=== PATIENT | female | born 1935 | race Hispanic/Latino ===

== ENCOUNTER 2018-01-19 17:25 | Inpatient (IN) | payer MEDICARE, OTHER ==
[2018-01-19] MEDS ORDERED: Albuterol-Ipratrop 3 mg / 0.5 (3 ml) UD IH STA (18:05)
--- NOTE | 2018-01-19 18:17 | ED PDOC ---
Arrival/HPI - General Chief Complaint: Shortness Of Breath Time Seen by Provider: 01/19/18 17:39 Historian: Patient, Family, Safekeeping Clerk - History of Present Illness Narrative History of Present Illness (Text): 01/19/18 18:35 Patient is an 82 yo female presents to the Emergency Department with shortness of breath. Daughter at bedside and translates. Patient reportedly "got sick in [place]" 6 days ago. Reportedly she had developed fever and cough at that time, daughter states that she was evaluated in Emergency Department in [place] and was discharged at that time with cough medicine as per daughter. Daughter states that over past 6 days she has had increased cough, wheezing and shortness of breath "gradually worse". She denies chest pain but reports "aches everywhere when she coughs". She reportedly has history of asthma and uses inhaler intermittently. She denies pleuritic chest pain. She denies leg pain or swelling. States she flew back from [place] 2 days ago. Denies headache. Denies any bloody urine or stool. Time/Duration: 1 week Symptom Onset: Gradual Past Medical History - Infectious Disease Hx of Infectious Diseases: None - Cardiac Hx Hypertension: Yes - Pulmonary Hx Asthma: Yes Hx Chronic Obstructive Pulmonary Disease (COPD): Yes - HEENT Hx Glaucoma: Yes - Psychiatric Hx Substance Use: No - Anesthesia Hx Anesthesia: No Hx Anesthesia Reactions: No Hx Malignant Hyperthermia: No - Suicidal Assessment Feels Threatened In Home Enviroment: No Family/Social History Family/Social History: Unknown Family HX Smoking Status: Never Smoked Hx Alcohol Use: No Hx Substance Use: No Allergies/Home Meds Allergies/Adverse Reactions: Allergies No Known Allergies Allergy (Verified 06/01/15 11:01) Home Medications: Home Meds Medication Instructions Recorded Confirmed Fluticasone/Salmeterol 250/50 1 puff PO DAILY 01/19/18 01/19/18 [Advair Diskus 250/50] Montelukast Sodium [Singulair] 10 mg PO DAILY 01/19/18 01/19/18 Timolol [Betimol] 1 drop DAILY 01/19/18 01/19/18 Review of Systems - Review of Systems Constitutional: Fatigue, Weight Change, Fevers. absent: Night Sweats Eyes: absent: Vision Changes, Photophobia, Eye Pain ENT: absent: Hearing Changes, Sore Throat, Rhinorrhea Respiratory: SOB, Cough, Wheezing Cardiovascular: KNAPP. absent: Chest Pain, Palpitations, Edema, Calf Pain, Orthopnea, Syncope Gastrointestinal: absent: Abdominal Pain, Nausea, Vomiting, Appetite Changes Genitourinary Female: absent: Dysuria, Frequency Musculoskeletal: absent: Back Pain Skin: absent: Rash Neurological: absent: Headache, Dizziness, Focal Weakness Endocrine: absent: Polyuria Hemo/Lymphatic: absent: Easy Bleeding Psychiatric: absent: Anxiety, Depression Physical Exam Vital Signs Reviewed: Yes Vital Signs Temp Pulse Resp BP Pulse Ox 01/19/18 19:45 142/86 01/19/18 18:53 99.6 F 01/19/18 17:57 97.8 F 100 H 18 142/86 96 Temperature: Afebrile Pulse: Irregular Respiratory Rate: Tachypneic Appearance: Positive for: Ill-Appearing Pain Distress: Mild Mental Status: Positive for: Alert and Oriented X 3 - Systems Exam Head: Present: Atraumatic Pupils: Present: PERRL Extroacular Muscles: Present: EOMI Mouth: Present: Moist Mucous Membranes Pharnyx: No: ERYTHEMA Nose (Internal): Present: Normal Inspection, No Active Bleeding Neck: Present: Normal Range of Motion. No: Meningeal Signs, MIDLINE TENDERNESS Respiratory/Chest: Present: Wheezes, Rales, Rhonchi, Tachypneic. No: Accessory Muscle Use Cardiovascular: Present: Murmurs, Irregular Rhythm, Tachycardic Abdomen: No: Tenderness, Distention Back: No: CVA Tenderness, Midline Tenderness Upper Extremity: Present: Normal ROM, NORMAL PULSES, Neurovascularly Intact. No : Cyanosis, Edema Lower Extremity: Present: NORMAL PULSES, Neurovascularly Intact. No: CALF TENDERNESS Neurological: Present: Motor Func Grossly Intact, Normal Sensory Function Skin: Present: Warm Psychiatric: Present: Alert, Normal Insight, Normal Concentration Medical Decision Making ED Course and Treatment: 01/19/18 18:41 Patient noted to have wheezing with rhonchi and rales on exam. Cough and sob progressive for 6 days. No calf pain or swelling. Patient on nasal cannula saturations 96%. On monitor, patient noted to have intermittent irregular tachycardic rhythm consistent with possible atrial fibrillation, although EKG reveals sinus tachycardia with nonspecifc st abnormality. Patient denies diabetes or known past cardiac history. No calf pain or swelling. No pleuritic pain. CXR suggestive of right lower lobe infiltrate. Blood cultures and iv antibiotics initiated. Also suspect arrhythmia given monitor rhythm, patient pending labs and BNP at this time. 01/19/18 20:03 On re-evaluation, no further irregular rhythms noted on monitor. Repeat EKG reveals sinus tachycardia with PACs. She is breathing more comfortably. Continues to deny chest discomfort. Abnormal CXR, bnp and suggestion of pneumonia, possible chf reviewed with patient and daughter. Given recent travel, will obtain ct angio. Case d/w house doctor Dr. Page, accepts admission to hospitalist service , CT angio results endorsed to Dr. Menchaca and admitting team for follow-up. If any arrhythmias return I have recommended repeat evaluation with EKG, reassessment and review of possible anticoagulation. - Lab Interpretations Lab Results: 01/19/18 18:30 01/19/18 18:30 Lab Results 01/19/18 18:30: Influenza Typ A,B (EIA) Negative for flu a/b 01/19/18 18:30: Sodium 138, Chloride 100, Potassium 4.3, Carbon Dioxide 24, Anion Gap 19, BUN 13, Creatinine 0.7, Est GFR ( Amer) > 60, Est GFR (Non- Af Amer) > 60, Random Glucose 117 H, Calcium 9.6, Magnesium 2.5 H, Total Bilirubin 2.8 H, AST 36, ALT 25, Alkaline Phosphatase 128 H, Lactate Dehydrogenase 479, Total Creatine Kinase 84, Troponin I 0.02, NT-Pro-B Natriuret Pep 1520 H, Total Protein 7.7, Albumin 3.8, Globulin 3.9, Albumin/ Globulin Ratio 1.0 L 01/19/18 18:30: pO2 126 H, VBG pH 7.38, VBG pCO2 41.0, VBG HCO3 24.3, VBG Total CO2 25.6, VBG O2 Sat (Calc) 98.9 H, VBG Base Excess -0.8 L, VBG Potassium 4.5, Sodium 134.0, Chloride 103.0, Glucose 118 H, Lactate 1.2, FiO2 21.0, Venous Blood Potassium 4.5 01/19/18 18:30: PT 14.5 H, INR 1.27 H, APTT 32.2 01/19/18 18:30: WBC 14.2 H D, RBC 4.14, Hgb 12.7, Hct 37.8, MCV 91.3, MCH 30.7, MCHC 33.6, RDW 14.1, Plt Count 345, MPV 9.1, Gran % 83.8 H, Lymph % (Auto) 4.1 L , Mcclain % (Auto) 11.9 H, Eos % (Auto) 0.0 L, Baso % (Auto) 0.2, Gran # 11.94 H, Lymph # (Auto) 0.6 L, Mcclain # (Auto) 1.7 H, Eos # (Auto) 0.0, Baso # (Auto) 0.03 , Neutrophils % (Manual) 80 H, Lymphocytes % (Manual) 10 L, Monocytes % (Manual ) 10 H 01/19/18 18:24: pCO2 34 L, pO2 89.0, HCO3 21.6, ABG pH 7.41, ABG Total CO2 22.6 , ABG O2 Saturation 97.9, ABG Base Excess -2.4 L, ABG Potassium 3.9, Sodium 135.0, Chloride 104.0, Glucose 105, Lactate 0.9, FiO2 30.0, Arterial Blood Potassium 3.9 - RAD Interpretation Radiology Orders: 01/19/18 18:04 CHEST PORTABLE [RAD] Stat 01/19/18 19:24 ANGIO CHEST PE PROTOCOL [CT] Stat - Medication Orders Current Medication Orders: Albuterol/Ipratropium (Duoneb 3 Mg/0.5 Mg (3 Ml) Ud) 3 ml IH Q2H PRN PRN Reason: Shortness of Breath Albuterol/Ipratropium (Duoneb 3 Mg/0.5 Mg (3 Ml) Ud) 3 ml IH [id number] PRASANNA Last Admin: 01/20/18 07:56 Dose: 3 ml Enoxaparin Sodium (Lovenox) 40 mg SC DAILY PRASANNA PRN Reason: Protocol Furosemide (Lasix) 20 mg IVP Q12 PRASANNA Ceftriaxone Sodium (Rocephin 1 Gram Ivpb) 1 gm in 100 mls @ 100 mls/hr IVPB DAILY PRASANNA PRN Reason: Protocol Azithromycin (Zithromax 500mg In Ns) 500 mg in 250 mls @ 167 mls/hr IVPB DAILY PRASANNA PRN Reason: Protocol Methylprednisolone (Solu-Medrol) 40 mg IVP Q12 PRASANNA Montelukast Sodium (Singulair) 10 mg PO DAILY PRASANNA Pantoprazole Sodium (Protonix Ec Tab) 40 mg PO 0600 PRASANNA Last Admin: 01/20/18 05:53 Dose: 40 mg Timolol Maleate (Timoptic 0.5% Ophth Soln) 1 drop OU DAILY PRASANNA Discontinued Medications Albuterol/Ipratropium (Duoneb 3 Mg/0.5 Mg (3 Ml) Ud) 3 ml IH STAT STA Stop: 01/19/18 18:06 Last Admin: 01/19/18 18:35 Dose: 3 ml Furosemide (Lasix) 20 mg IVP STAT STA Stop: 01/19/18 19:19 Last Admin: 01/19/18 19:45 Dose: 20 mg MAR Blood Pressure Document 01/19/18 19:45 MS (Rec: 01/19/18 19:46 MS [id number]) Blood Pressure Blood Pressure (100/60-150/90) 142/86 IVP Administration Document 01/19/18 19:45 MS (Rec: 01/19/18 19:46 MS [id number]) Charges for Administration # of IVP Administrations 1 Ceftriaxone Sodium (Rocephin 1 Gram Ivpb) 1 gm in 100 mls @ 200 mls/hr IVPB ONCE STA PRN Reason: Protocol Stop: 01/19/18 19:02 Last Admin: 01/19/18 19:10 Dose: 200 mls/hr eMAR Start Stop Document 01/19/18 19:10 MS (Rec: 01/19/18 19:45 MS [id number]) Intravenous Solution Start Date 01/19/18 Start Time 19:10 End Date 01/19/18 End time 19:40 Total Infusion Time 30 Azithromycin (Zithromax 500mg In Ns) 500 mg in 250 mls @ 167 mls/hr IVPB STAT STA PRN Reason: Protocol Stop: 01/19/18 20:02 Last Admin: 01/19/18 19:46 Dose: 167 mls/hr eMAR Start Stop Document 01/19/18 19:46 MS (Rec: 01/19/18 19:47 MS [id number]) Intravenous Solution Start Date 01/19/18 Start Time 19:46 End Date 01/19/18 End time 21:16 Total Infusion Time 90 Timolol Maleate (Timoptic 0.5% Ophth Soln) 0 drop OU DAILY PRASANNA Disposition/Present on Arrival - Present on Arrival Any Indicators Present on Arrival: No History of DVT/PE: No History of Uncontrolled Diabetes: No Urinary Catheter: No History of Decub. Ulcer: No History Surgical Site Infection Following: None - Disposition Have Diagnosis and Disposition been Completed?: Yes Diagnosis: Pneumonia, CHF (congestive heart failure), Tachycardia, Asthma Disposition: HOSPITALIZED Disposition Time: 19:15 Patient Plan: Admission, Telemetry Patient Problems: Current Active Problems Problem Status Onset Asthma Acute CHF (congestive heart failure) Acute Pneumonia Acute Tachycardia Acute Condition: SERIOUS
[2018-01-19 18:27] LABS: ARTERIAL BLOOD GAS HCO3 21.6 mmol/L (21-28); ARTERIAL BLOOD GAS O2 SAT 97.9 % (95-98); ARTERIAL BLOOD GAS PCO2 34 mm/Hg (35-45); ARTERIAL BLOOD GAS PH 7.41 (7.35-7.45); ARTERIAL BLOOD GAS TCO2 22.6 mmol.L (22-28)
[2018-01-19] MEDS ORDERED: Azithromycin 500MG/NS 250ml 500 MG/250 ML BAG IVPB STA (18:33)
[2018-01-19] MEDS ORDERED: cefTRIAXone 1 gm 1 GM/100 ML BAG IVPB STA (18:33)
--- NOTE | 2018-01-19 18:35 | RAD ---
HISTORY: Shortness of breath COMPARISON: 06/01/2015. FINDINGS: LUNGS: The lungs are hyperinflated and there is peribronchial thickening with chronic changes in both lungs. There is airspace disease in the right lower lobe. PLEURA: No significant pleural effusion identified, no pneumothorax apparent. CARDIOVASCULAR: Normal. OSSEOUS STRUCTURES: No significant abnormalities. VISUALIZED UPPER ABDOMEN: Normal. OTHER FINDINGS: None. IMPRESSION: Suspect right lower lobe pneumonia. Follow-up to resolution is advised. COPD.
[2018-01-19 18:46] LABS: VENOUS BLOOD GAS BASE EXCESS -0.8 mmol/L (0.0-2.0); VENOUS BLOOD GAS PO2 126 mm/Hg (30-55); VENOUS BLOOD PH 7.38 (7.32-7.43)
[2018-01-19 18:51] LABS: BASO # 0.03 K/mm3 (0.0-2.0); BASO % 0.2 % (0.0-3.0); GRAN # 11.94 (1.4-6.5); GRAN % 83.8 % (50.0-68.0); HEMOGLOBIN 12.7 g/dL (12.0-16.0); LYMPH # 0.6 (1.2-3.4); LYMPH % 4.1 % (22.0-35.0); MEAN CELL VOLUME 91.3 fl (80.0-105.0); MEAN CORPUSCULAR HEMOGLOBIN 30.7 pg (25.0-35.0); MEAN CORPUSCULAR HGB CONC 33.6 g/dl (31.0-37.0); MEAN PLATELET VOLUME 9.1 fl (7.0-11.0); MONO # 1.7 (0.1-0.6); MONO % 11.9 % (1.0-6.0); PLATELET COUNT 345 10^3/uL (120.0-450.0); RBC 4.14 10^6/uL (3.5-6.1); RED CELL DISTRIBUTION WIDTH 14.1 % (11.5-14.5); WHITE BLOOD COUNT 14.2 10^3/ul (4.5-11.0)
[2018-01-19 18:54] LABS: ALBUMIN 3.8 g/dL (3.0-4.8); ALT/SGPT 25 U/L (7-56); AST/SGOT 36 U/L (14-36); BLOOD UREA NITROGEN 13 mg/dL (7-21); CALCIUM 9.6 mg/dL (8.4-10.5); GFR AFRICAN-AMERICAN > 60; GFR NON-AFRICAN AMERICAN > 60
[2018-01-19 18:57] LABS: INR 1.27 (0.93-1.08); PARTIAL THROMBOPLASTIN TIME 32.2 Seconds (25.1-36.5); PROTHROMBIN TIME 14.5 SECONDS (9.4-12.5)
[2018-01-19 19:02] LABS: B-TYPE NATRIURETIC PEPTIDE 1520 pg/mL (0-450)
[2018-01-19 19:06] LABS: TROPONIN I 0.02 ng/mL
[2018-01-19 19:30] LABS: LYMPHOCYTE 10 % (22.0-35.0); MONOCYTE 10 % (1.0-6.0); NEUTROPHIL 80 % (50.0-70.0)
[2018-01-19] MEDS ORDERED: Iohexol 350 MG/100 ML VIAL ONE (20:04)
[2018-01-19] MEDS ORDERED: Albuterol-Ipratrop 3 mg / 0.5 (3 ml) UD IH PRN (21:24)
--- NOTE | 2018-01-19 21:50 | CT ---
EXAM: CT Angiography Chest With Intravenous Contrast EXAM DATE/TIME: 01/19/2018 7:24 PM CLINICAL HISTORY: 82 years old, female; Signs and symptoms; Shortness of breath; Additional info: R/O pe TECHNIQUE: Axial computed tomographic angiography images of the chest with intravenous contrast using pulmonary embolism protocol. All CT scans at this facility use one or more dose reduction techniques, viz.: automated exposure control; ma/kV adjustment per patient size (including targeted exams where dose is matched to indication; i.e. head); or iterative reconstruction technique. MIP reconstructed images were created and reviewed. Coronal and sagittal reformatted images were created and reviewed. CONTRAST: 95 mL of OMNI 350 administered intravenously. COMPARISON: DX - CHEST PORTABLE 2018-01-19 18:11 FINDINGS: Multiple small mediastinal lymph nodes are noted. No pulmonary embolism. No aortic dissection or aneurysm. There is a small amount of fluid in the right pleural space. There are scattered nodular infiltrates throughout the lungs bilaterally. There are scattered areas of consolidation throughout the lungs bilaterally.. The consolidation is most prominent in the anterior mid lung some of which may be chronic. Small scattered groundglass opacities are present. There is a focal area of soft tissue density in the right breast with somewhat rounded borders measuring 1.5 cm in diameter. This may just represent asymmetric normal breast tissue however would recommend correlation with mammogram. IMPRESSION: Patchy scattered areas of groundglass opacity, consolidation, and nodular infiltrates bilaterally. I would favor infectious/inflammatory etiology for the patchy micronodular infiltrate, however neoplasm would still be within the differential diagnosis and followup is recommended to ensure complete resolution. Consolidation is most prominent in the mid lung some of which may represent chronic atelectatic changes however underlying lesion would be possible and followup is recommended. Correlation with prior studies would also be helpful if they exist. Small right pleural effusion. Please see discussion above regarding right breast tissue.
[2018-01-19 21:53] LABS: URINE BILIRUBIN NEGATIVE (NEGATIVE); URINE BLOOD SMALL (NEGATIVE); URINE GLUCOSE (UA) NEGATIVE (NEGATIVE); URINE LEUKOCYTE ESTERASE TRACE Leu/uL (NEGATIVE); URINE PROTEIN TRACE mg/dL (<30 mg/dL); URINE UROBILINOGEN 0.2 E.U./dL (<1 E.U./dL)
[2018-01-19 22:00] LABS: URINE APPEARANCE CLEAR (CLEAR); URINE COLOR YELLOW (YELLOW)
[2018-01-19 22:05] LABS: URINE BACTERIA FEW (NEG); URINE EPITHELIAL CELLS 0 - 2 /hpf (0-5); URINE RBC 0 - 2 /hpf (0-2)
--- NOTE | 2018-01-19 23:05 | CP.PCM.HP ---
<Atul Noel - Last Filed: 01/20/18 00:16> History of Present Illness - History of Present Illness History of Present Illness: CC: Cold-like symptoms Pt is an 82 yo F with PMH of asthma, glaucoma, and HTN [place] [facility] [place] to [place]ness of breath. Pt's daughter is at bedside and provides translation as patient speaks [place]. Pt complained of fever up to 101.3 F and cough that started 6 days ago while she was in [place]. Pt was evaluated by emergency department in [place], who discharged her with PO antibiotics and cough medication. However, over the past 6 days patient's symptoms worsened, including productive cough, wheezing, body aches, and shortness of breath. Patient returned from [place] 2 days ago. Pt denies CP, n/v/d, abdominal pain , chills, SAINZ, dizziness, dysuria, changes in stool, leg pain, or swelling. PMH: Asthma, glaucoma, HTN Surg: Cataracts, ORIF for right ankle fx All: NKDA FHx: Stomach CA SH: Denied tobacco, EtOH, and illicit drug use PMD: [place] Present on Admission - Present on Admission Any Indicators Present on Admission: No Review of Systems - Review of Systems Review of Systems: 12 point ROS reviewed and is negative other than what is stated in HPI. Past Patient History - Infectious Disease Hx of Infectious Diseases: None - Past Social History Smoking Status: Never Smoked - CARDIAC Hx Hypertension: Yes - PULMONARY Hx Asthma: Yes Hx Chronic Obstructive Pulmonary Disease (COPD): Yes - HEENT Hx Glaucoma: Yes - PSYCHIATRIC Hx Substance Use: No - ANESTHESIA Hx Anesthesia: No Hx Anesthesia Reactions: No Hx Malignant Hyperthermia: No Meds Allergies/Adverse Reactions: Allergies Allergy/AdvReac Type Severity Reaction Status Date / Time No Known Allergies Allergy Verified 06/01/15 11:01 Physical Exam - Constitutional Appears: No Acute Distress - Head Exam Head Exam: NORMAL INSPECTION - Eye Exam Eye Exam: Normal appearance - ENT Exam ENT Exam: Mucous Membranes Moist - Neck Exam Neck exam: Positive for: Normal Inspection - Respiratory Exam Respiratory Exam: Rhonchi (b/l R>L), Wheezes (b/l bases). absent: Rales, Respiratory Distress - Cardiovascular Exam Cardiovascular Exam: Irregular Rhythm, +S1, +S2. absent: Diastolic murmur, Gallop, Rubs, Systolic Murmur - GI/Abdominal Exam GI & Abdominal Exam: Soft. absent: Distended, Guarding, Rebound, Tenderness - Extremities Exam Extremities exam: Positive for: normal inspection - Back Exam Back exam: NORMAL INSPECTION - Neurological Exam Neurological exam: Alert, CN II-XII Intact, Oriented x3 - Psychiatric Exam Psychiatric exam: Normal Affect, Normal Mood - Skin Skin Exam: Dry, Intact, Normal Color, Warm Results - Vital Signs Recent Vital Signs: Last Vital Signs Temp 99.6 F 01/19/18 18:53 Pulse 100 H 01/19/18 17:57 Resp 18 01/19/18 17:57 BP 142/86 01/19/18 19:45 Pulse Ox 96 01/19/18 17:57 - Labs Result Diagrams: 01/19/18 18:30 01/19/18 18:30 Labs: Laboratory Results - last 24 hr 01/19/18 21:27 Urine Color Yellow Urine Appearance Clear Urine pH 6.0 Ur Specific Bonnyman 1.010 Urine Protein Trace H Urine Glucose (UA) Negative Urine Ketones 15 H Urine Blood Small H Urine Nitrate Negative Urine Bilirubin Negative Urine Urobilinogen 0.2 Ur Leukocyte Esterase Trace H Urine RBC 0 - 2 Urine WBC 5 - 10 Ur Epithelial Cells 0 - 2 Urine Bacteria Few Assessment & Plan - Assessment and Plan (Free Text) Assessment: 82 yo F with PMH of asthma, glaucoma and HTN admitted for evaluation and treatment for community acquired pneumonia. Plan: 1. Community acquired pneumonia - Afebrile on admission - WBC 14.2, lactate WNL - CXR showed right lower lobe pneumonia - CT chest showed patchy scattered areas of groundglass opacity, consolidation, and nodular infiltrates bilaterally, consolidation is most prominent in the mid lung (right), no PE - Influenza negative - Ceftriaxone - Azithromycin - Blood culture ordered - ID consulted 2. CHF - BNP 1520 - Troponin negative x1, trend x2 - Echo ordered - Lasix 20 mg q12h - Strict I's and O's - Daily weights - Head of bed to 30 degrees - Cardiology consulted 3. Possible paroxysmal atrial fibrillation - CV exam and pulse irregularly irregular - EKG revealed sinus tachycardia with nonspecifc ST abnormality - AM EKG ordered 4. UTI - UA showed trace leukocyte esterase - Urine culture ordered - Ceftriaxone 5. Asthma - Duoneb nabeel and prn - Singulair - Solumedrol 40 mg q12h 6. H/o Glaucoma - Cont home medication GI/DVT PPx - Lovenox - Protonix Pt seen and discussed in detail with Dr. Page. Ronnie Noel, PGY1 <Erin Page - Last Filed: 01/20/18 01:59> Results - Vital Signs Recent Vital Signs: Last Vital Signs Temp 99.6 F 01/19/18 18:53 Pulse 102 H 01/19/18 23:43 Resp 16 01/19/18 23:43 BP 122/87 01/19/18 23:43 Pulse Ox 95 01/19/18 23:43 - Labs Result Diagrams: 01/19/18 18:30 01/19/18 18:30 Labs: Laboratory Results - last 24 hr 01/19/18 21:27 Urine Color Yellow Urine Appearance Clear Urine pH 6.0 Ur Specific Bonnyman 1.010 Urine Protein Trace H Urine Glucose (UA) Negative Urine Ketones 15 H Urine Blood Small H Urine Nitrate Negative Urine Bilirubin Negative Urine Urobilinogen 0.2 Ur Leukocyte Esterase Trace H Urine RBC 0 - 2 Urine WBC 5 - 10 Ur Epithelial Cells 0 - 2 Urine Bacteria Few Attending/Attestation - Attestation I have personally seen and examined this patient.: Yes I have fully participated in the care of the patient.: Yes I have reviewed all pertinent clinical information: Yes Notes (Text): 01/20/18 01:55 Patient was seen when she was in the CODE ROOM in the ER. Agree with history , physical examination, assessment and plan. Family physician:Fransisco Mckenzie. History obtained from daughter.
[2018-01-20] MEDS ORDERED: Metoprolol 1 mg/ml Inj IVP ONE (01:01)
[2018-01-20] MEDS: Albuterol-Ipratrop 3 mg / 0.5 (3 ml) UD IH SCH ×4 (01:11→19:43)
[2018-01-20] MEDS: Pantoprazole 40 mg EC Tab PO SCH (05:53)
[2018-01-20 07:02] LABS: HEMOGLOBIN 12.1 g/dL (12.0-16.0); MEAN CELL VOLUME 90.7 fl (80.0-105.0); MEAN CORPUSCULAR HEMOGLOBIN 30.4 pg (25.0-35.0); MEAN CORPUSCULAR HGB CONC 33.5 g/dl (31.0-37.0); MEAN PLATELET VOLUME 9.1 fl (7.0-11.0); RBC 3.98 10^6/uL (3.5-6.1); RED CELL DISTRIBUTION WIDTH 14.1 % (11.5-14.5); WHITE BLOOD COUNT 12.1 10^3/ul (4.5-11.0)
[2018-01-20 07:38] LABS: ALBUMIN 3.6 g/dL (3.0-4.8); ALT/SGPT 33 U/L (7-56); AST/SGOT 39 U/L (14-36); BLOOD UREA NITROGEN 14 mg/dL (7-21); GFR AFRICAN-AMERICAN > 60; GFR NON-AFRICAN AMERICAN > 60
[2018-01-20] MEDS ORDERED: Cefepime IV 2 gm in NS 2 GM/100 ML BAG IVPB SCH (08:45)
[2018-01-20] MEDS ORDERED: Enoxaparin 40 mg Syringe SC SCH (10:00)
[2018-01-20] MEDS ORDERED: cefTRIAXone 1 gm 1 GM/100 ML BAG IVPB SCH (10:00)
[2018-01-20] MEDS: Vancomycin 500mg in NS 500 MG/100 ML BAG IVPB SCH ×2 (10:10→21:18)
[2018-01-20] MEDS: Azithromycin 500MG/NS 250ml 500 MG/250 ML BAG IVPB SCH (12:51)
--- NOTE | 2018-01-20 15:39 | CON ---
DATE: 01/20/2018 REASON FOR CONSULTATION: Shortness of breath, pneumonia, and APCs. HISTORY OF PRESENT ILLNESS: This is an 82-year-old woman admitted yesterday through the emergency room when she complained of shortness of breath, this has been present for a week or more. She became ill in [place] with fever and shortness of breath. She was seen in an emergency room there and started on antibiotics. She returned to home a couple of days ago, symptoms have continued and got worse. So, she came to the emergency room. She was admitted to telemetry with apparent bibasilar pneumonia. In the emergency room, irregular rhythm was noted including APCs. This morning, she is resting comfortably in bed. She feels better at rest. There is no chest pain, orthopnea, PND, syncope, presyncope, lightheadedness, dizziness, or vertigo. There is no hemoptysis, abdominal pain, nausea, vomiting, diarrhea, constipation, or melena. There were no leg symptoms. PAST MEDICAL HISTORY: Notable for hypertension, asthma, glaucoma, and a right ankle ORIF. There is no history of cardiac problems including rheumatic fever, myocardial infarction, angina, arrhythmia, and there is no history of stroke, TIA, diabetes, or gout. MEDICATIONS: At the time of admission included Advair, Singulair, timolol, and lisinopril. ALLERGIES: THERE ARE NO MEDICATION ALLERGIES REPORTED. SOCIAL HISTORY: She is a nonsmoker. She does not drink alcohol. She is ambulatory. FAMILY HISTORY: Not notable for heart problems. REVIEW OF SYSTEMS: Ten-point review of systems is otherwise unremarkable except as noted above. The patient is [place] speaking, so this is somewhat limited. PHYSICAL EXAMINATION: GENERAL: A well-developed elderly woman lying in bed on telemetry, in no acute distress. VITAL SIGNS: Notable for sinus rhythm at 89-100 beats per minute. She is afebrile. Blood pressure 141/90, respirations 19-20, O2 sat 92%-97% on nasal cannula. HEENT: Reveals no neck vein distention, thyromegaly, or carotid bruits. Mucous membranes are moist. Conjunctivae are pink. NECK: Supple. LUNGS: [place], scattered rhonchi. HEART: Reveal a normal first and second heart sounds. No murmur, gallop, rub, or click. PMI not palpable. ABDOMEN: Soft. Bowel sounds present. No mass, organomegaly, tenderness, rebound, or guarding. No CVA tenderness. No palpable abdominal aortic aneurysm. EXTREMITIES: Reveal no cyanosis, clubbing, or edema. NEUROLOGIC: She is awake, alert, and oriented. PSYCHIATRIC: Normal as to mood and affect. SKIN: Warm and dry. No rash or cellulitis. LABORATORY AND IMAGING DATA: EKG demonstrates regular sinus rhythm, nonspecific ST-wave changes, no change from a previous EKG. Chest x-ray revealed suspect right lower lobe pneumonia. CT scan of the chest revealed no evidence of pulmonary embolus or aortic dissection, patchy scattered areas of ground glass opacity, consolidation or nodular infiltrates bilaterally, etc. White count 14,200, repeat 12,100; hemoglobin 12; hematocrit 36; platelet count normal. PT 14.5, INR 1.27, PTT 32.2. Blood gases are noted. Comprehensive metabolic panel unremarkable. Magnesium 2.5. LFTs mildly abnormal. Two troponins are negative. CK is 84. BNP is 1520. Urinalysis is noted. Influenza is negative. IMPRESSION AND PLAN: Sylvia Corrigan is an 82-year-old woman with bilateral infiltrates on the CT and a recent history of fever, cough, and congestion. She is admitted to telemetry. She is improved. She is getting pulmonary treatments. She got IV Lasix, Lovenox, Rocephin, Protonix, Solu-Medrol, vancomycin, azithromycin, lisinopril. We will monitor inputs and outputs. We will check an echocardiogram. No arrhythmias has been detected on telemetry as yet. We will check stool for occult blood. An infectious disease consult was requested. She has been cultured. I will follow along with you. I will check her echocardiogram once it has been done. I will make additional recommendations based on her clinical course. Adonay Casillas MD [facility]
--- NOTE | 2018-01-20 16:10 | US ---
HISTORY: Bilirubinemia and RUQ pain COMPARISON: None. TECHNIQUE: Sonographic evaluation of the right upper quadrant of the abdomen. FINDINGS: LIVER: Measures 13.5 cm in length. Patent portal vein. Portal venous flow: Hepatopetal. Unremarkable echogenicity of the liver parenchyma. No mass. No intrahepatic bile duct dilatation. GALLBLADDER: Cholelithiasis. Sludge identified. Positive sonographic Yin's sign. COMMON BILE DUCT: Measures 2.4 mm. No stones. No dilatation. PANCREAS: Unremarkable as visualized. No mass. No ductal dilatation. RIGHT KIDNEY: Measures 4.8 x 9.3 cm in length. Normal echogenicity. No calculus, mass, or hydronephrosis. Incidental finding(s): Simple cyst lower pole 2.9 x 3 cm AORTA: No aneurysmal dilatation. IVC: Unremarkable. OTHER FINDINGS: None . IMPRESSION: Cholelithiasis/ positive sonographic Yin's sign presumptive evidence for acute cholecystitis
--- NOTE | 2018-01-20 20:23 | CARD ---
APPROVED REPORT EKG Measurement Heart [id number] <Conclusion> Sinus rhythm with premature supraventricular complexes Otherwise normal ECG
--- NOTE | 2018-01-20 20:32 | CARD ---
APPROVED REPORT EKG Measurement Heart [id number] <Conclusion> Sinus tachycardia Nonspecific ST abnormality Abnormal ECG
[2018-01-20] MEDS: MethylPREDNISolone 40 mg Vial IVP SCH (21:18)
[2018-01-20] MEDS: Cefepime IV 2 gm in NS 2 GM/100 ML BAG IVPB SCH (21:18)
--- NOTE | 2018-01-20 21:44 | CP.PCM.CON ---
History of Present Illness - History of Present Illness History of Present Illness: 82 year old female with PMH of asthma, HTN, glaucoma, S/P right ankle fracture S /P ORIF, cataracts was brought in to [facility] because of cough and fevers for the past week. She came from [place] ([place] [facility]) last month and was seen in an ED there last week and was given PO antibiotics for presumed pneumonia. She had some relief but still had cough and fever. She denies having hemoptysis, no night sweats, no weight loss. She came back to [place] 2 days ago. [place] the [place], no headache or dizziness, no chest pain, no sore throat, no abdominal pain, no rhinorrhea, no diarrhea, no dysuria. CT chest is showing patchy scattered opacities in both lungs. She came from [place] 15 years and has been living mostly in [facility] since then. She apparently had a PPD skin test done 15 years ago which was negative. Infectious Diseases consult is requested to further evaluate and manage. Review of Systems - Review of Systems All systems: reviewed and no additional remarkable complaints except (as per HPI ) Past Patient History - Infectious Disease Hx of Infectious Diseases: None - Past Social History Smoking Status: Never Smoked - CARDIAC Hx Hypertension: Yes - PULMONARY Hx Respiratory Disorders: Yes Hx Asthma: Yes Hx Chronic Obstructive Pulmonary Disease (COPD): Yes - HEENT Hx Glaucoma: Yes - MUSCULOSKELETAL/RHEUMATOLOGICAL Hx Falls: Yes (2010) - PSYCHIATRIC Hx Substance Use: No - SURGICAL HISTORY Hx Surgeries: Yes (right leg surgery) - ANESTHESIA Hx Anesthesia: No Hx Anesthesia Reactions: No Hx Malignant Hyperthermia: No Meds Allergies/Adverse Reactions: Allergies Allergy/AdvReac Type Severity Reaction Status Date / Time No Known Allergies Allergy Verified 06/01/15 11:01 - Medications Medications: Current Medications Albuterol/Ipratropium (Duoneb 3 Mg/0.5 Mg (3 Ml) Ud) 3 ml IH Q2H PRN PRN Reason: Shortness of Breath Albuterol/Ipratropium (Duoneb 3 Mg/0.5 Mg (3 Ml) Ud) 3 ml IH [id number] COUNT INCLUDES [facility] Last Admin: 01/20/18 01:11 Dose: 3 ml Enoxaparin Sodium (Lovenox) 40 mg SC DAILY [facility]CLUDES [facility] PRN Reason: Protocol Furosemide (Lasix) 20 mg IVP Q12 COUNT INCLUDES [facility] Ceftriaxone Sodium (Rocephin 1 Gram Ivpb) 1 gm in 100 mls @ 100 mls/hr IVPB DAILY COUNT [facility]CLUDES [facility] PRN Reason: Protocol Azithromycin (Zithromax 500mg In Ns) 500 mg in 250 mls @ 167 mls/hr IVPB DAILY [facility] PRN Reason: Protocol Methylprednisolone (Solu-Medrol) 40 mg IVP Q12 COUNT INCLUDES [facility] Montelukast Sodium (Singulair) 10 mg PO DAILY COUNT [facility]CLUDES [facility] Pantoprazole Sodium (Protonix Ec Tab) 40 mg PO 0600 COUNT [facility]CLUDES [facility] Last Admin: 01/20/18 05:53 Dose: 40 mg Timolol Maleate (Timoptic 0.5% Ophth Soln) 1 drop OU DAILY COUNT [facility]CLUDES [facility] Physical Exam - Constitutional Appears: Non-toxic, Chronically Ill - Head Exam Head Exam: NORMAL INSPECTION - Neck Exam Neck exam: Negative for: Lymphadenopathy, Meningismus - Respiratory Exam Respiratory Exam: Decreased Breath Sounds, Rales (scattered) - Cardiovascular Exam Cardiovascular Exam: +S1, +S2 - GI/Abdominal Exam GI & Abdominal Exam: Soft. absent: Tenderness Results - Vital Signs Recent Vital Signs: Last Vital Signs Temp 97.9 F 01/20/18 01:53 Pulse 89 01/20/18 02:00 Resp 19 01/20/18 01:53 BP 144/74 01/20/18 01:53 Pulse Ox 92 L 01/20/18 00:00 - Labs Result Diagrams: 01/20/18 06:00 01/20/18 06:00 Labs: Laboratory Results - last 24 hr 01/19/18 01/20/18 21:27 02:33 Troponin I 0.03 D Urine Color Yellow Urine Appearance Clear Urine pH 6.0 Ur Specific Ewen 1.010 Urine Protein Trace H Urine Glucose (UA) Negative Urine Ketones 15 H Urine Blood Small H Urine Nitrate Negative Urine Bilirubin Negative Urine Urobilinogen 0.2 Ur Leukocyte Esterase Trace H Urine RBC 0 - 2 Urine WBC 5 - 10 Ur Epithelial Cells 0 - 2 Urine Bacteria Few Assessment & Plan - Assessment and Plan (Free Text) Plan: Assessment Consider sepsis due to multifocal HCAP with possible gram positive cocci and/or gram negative bacilli and/or atypical organisms asthma HTN glaucoma S/P right ankle fracture S/P ORIF cataracts Plan Started patient on Vancomycin, cefepime and doxycycline pending blood, sputum cx , PCT; reviewed CT chest initially considered Coccidioides since she came from [place] but patient did not specifically [place] will monitor clinical response
[2018-01-21] MEDS: Albuterol-Ipratrop 3 mg / 0.5 (3 ml) UD IH SCH ×4 (01:21→22:02)
[2018-01-21] MEDS: Pantoprazole 40 mg EC Tab PO SCH (06:38)
[2018-01-21 07:36] LABS: HEMOGLOBIN 11.9 g/dL (12.0-16.0); MEAN CELL VOLUME 91.6 fl (80.0-105.0); MEAN CORPUSCULAR HEMOGLOBIN 30.4 pg (25.0-35.0); MEAN CORPUSCULAR HGB CONC 33.1 g/dl (31.0-37.0); RBC 3.92 10^6/uL (3.5-6.1); RED CELL DISTRIBUTION WIDTH 14.1 % (11.5-14.5); WHITE BLOOD COUNT 9.6 10^3/ul (4.5-11.0)
[2018-01-21 08:00] LABS: ALB/GLOB RATIO 0.9 (1.1-1.8); ALBUMIN 3.3 g/dL (3.0-4.8); ALT/SGPT 36 U/L (7-56); AST/SGOT 38 U/L (14-36); BLOOD UREA NITROGEN 16 mg/dL (7-21); CALCIUM 9.1 mg/dL (8.4-10.5); GFR AFRICAN-AMERICAN > 60; GFR NON-AFRICAN AMERICAN > 60
--- NOTE | 2018-01-21 08:27 | CP.PCM.PN ---
<Opal Ferreira - Last Filed: 01/21/18 09:35> Subjective - Date & Time of Evaluation Date of Evaluation: 01/21/18 Time of Evaluation: 08:27 - Subjective Subjective: PGY-2 progress note for hospitalist Patient seen and examined at bedside. No acute distress. Nurse reports no acute events overnight. Daughter at bedside for translation, Patient state that she had a nose bleed this morning which resolved. She state that he breathing has improved but continues to have cough. Patient states that she has had more then multiple episodes of pne over the past few years. She has never been intubated. Objective - Vital Signs/Intake and Output Vital Signs (last 24 hours): Temp Pulse Resp BP Pulse Ox 97.7 F 84 20 124/68 96 01/21/18 06:00 01/21/18 06:00 01/21/18 06:00 01/21/18 06:00 01/21/18 06:00 Intake and Output: 01/21/18 01/21/18 06:59 18:59 Intake Total 540 Balance 540 - Medications Medications: Current Medications Albuterol/Ipratropium (Duoneb 3 Mg/0.5 Mg (3 Ml) Ud) 3 ml IH Q2H PRN PRN Reason: Shortness of Breath Last Admin: 01/21/18 04:26 Dose: 3 ml Albuterol/Ipratropium (Duoneb 3 Mg/0.5 Mg (3 Ml) Ud) 3 ml IH [id number] NABEEL Last Admin: 01/21/18 08:04 Dose: 3 ml Enoxaparin Sodium (Lovenox) 30 mg SC DAILY [facility] PRN Reason: Protocol Azithromycin (Zithromax 500mg In Ns) 500 mg in 250 mls @ 167 mls/hr IVPB DAILY [facility] PRN Reason: Protocol Last Admin: 01/20/18 12:51 Dose: 167 mls/hr Vancomycin HCl (Vancomycin 500mg In Ns) 500 mg in 100 mls @ 200 mls/hr IVPB Q12 [facility] PRN Reason: Protocol Last Admin: 01/20/18 21:18 Dose: 200 mls/hr Cefepime HCl (Maxipime 2gm) 2 gm in 100 mls @ 100 mls/hr IVPB Q12 N[facility]EEL PRN Reason: Protocol Stop: 04/04/18 08:46 Last Admin: 01/20/18 21:18 Dose: 100 mls/hr Lisinopril (Zestril) 5 mg PO DAILY [facility] Last Admin: 01/20/18 10:08 Dose: 5 mg Methylprednisolone (Solu-Medrol) 40 mg IVP Q12 [facility] Last Admin: 01/20/18 21:18 Dose: 40 mg Montelukast Sodium (Singulair) 10 mg PO DAILY [facility] Last Admin: 01/20/18 10:08 Dose: 10 mg Pantoprazole Sodium (Protonix Ec Tab) 40 mg PO 0600 [facility] Last Admin: 01/21/18 06:38 Dose: 40 mg Timolol Maleate (Timoptic 0.5% Ophth Soln) 1 drop OU HS [facility] Last Admin: 01/20/18 21:19 Dose: 1 unit - Labs Labs: 01/21/18 07:00 01/21/18 07:00 PT 14.5 SECONDS (9.4-12.5) H 01/19/18 18:30 INR 1.27 (0.93-1.08) H 01/19/18 18:30 APTT 32.2 Seconds (25.1-36.5) 01/19/18 18:30 - Constitutional Appears: No Acute Distress - Head Exam Head Exam: ATRAUMATIC, NORMAL INSPECTION, NORMOCEPHALIC - Eye Exam Eye Exam: EOMI, Normal appearance - ENT Exam ENT Exam: Mucous Membranes Moist - Respiratory Exam Respiratory Exam: Rhonchi, Wheezes, NORMAL BREATHING PATTERN. absent: Respiratory Distress - Cardiovascular Exam Cardiovascular Exam: REGULAR RHYTHM, +S1, +S2. absent: Tachycardia, Murmur - GI/Abdominal Exam GI & Abdominal Exam: Soft, Normal Bowel Sounds. absent: Distended, Firm, Guarding - Extremities Exam Extremities Exam: Normal Inspection - Neurological Exam Neurological Exam: Alert, Awake, Oriented x3 - Skin Skin Exam: Dry, Normal Color, Warm Assessment and Plan - Assessment and Plan (Free Text) Assessment: 82 yo F with PMH of asthma, glaucoma and HTN admitted for evaluation and treatment for community acquired pneumonia, found to have cholecysitis, UTI and transaminitis. Plan: Community acquired pneumonia - Afebrile, leukocytosis downtrending - CXR showed right lower lobe pneumonia - CT chest showed patchy scattered areas of groundglass opacity, consolidation, and nodular infiltrates bilaterally, consolidation is most prominent in the mid lung (right), no PE - Influenza negative - continue antibiotics vancomycin, Azithromycin and cefepime - Blood culture negative after 24 hours - ID consulted, ordered legionella, histoplasma and fungitell studies - pulm consulted cholecysitis - patient has mild tenderness on palpation of RUQ - transaminitis, is improving - AB US showed cholelithiasis with evidence for acute cholecysitis - patient NPO - surgery conslted Asthma - Duoneb nabeel and prn - Singulair - continue Solumedrol 40 mg q12h CHF - BNP 1520 - Troponin negative x 3 - Echo offical read pending - Strict I's and O's - Daily weights - Head of bed to 30 degrees - Cardiology consulted UTI - UA showed trace leukocyte esterase - Urine culture ordered pending - continue antibiotics vancomycin, Azithromycin and cefepime H/o Glaucoma - Cont home medication GI/DVT PPx - Lovenox - Protonix <Neymar Fragoso - Last Filed: 01/21/18 18:24> Objective - Vital Signs/Intake and Output Vital Signs (last 24 hours): Temp Pulse Resp BP Pulse Ox 97.5 F L 95 H 18 140/64 96 01/21/18 12:00 01/21/18 14:00 01/21/18 12:00 01/21/18 12:00 01/21/18 06:00 Intake and Output: 01/21/18 01/21/18 06:59 18:59 Intake Total 540 Balance 540 - Medications Medications: Current Medications Albuterol/Ipratropium (Duoneb 3 Mg/0.5 Mg (3 Ml) Ud) 3 ml IH Q2H PRN PRN Reason: Shortness of Breath Last Admin: 01/21/18 04:26 Dose: 3 ml Albuterol/Ipratropium (Duoneb 3 Mg/0.5 Mg (3 Ml) Ud) 3 ml IH [id number] NABEEL Last Admin: 01/21/18 14:02 Dose: 3 ml Enoxaparin Sodium (Lovenox) 30 mg SC DAILY [facility] PRN Reason: Protocol Last Admin: 01/21/18 10:09 Dose: 30 mg Azithromycin (Zithromax 500mg In Ns) 500 mg in 250 mls @ 167 mls/hr IVPB DAILY [facility] PRN Reason: Protocol Last Admin: 01/21/18 12:19 Dose: 167 mls/hr Vancomycin HCl (Vancomycin 500mg In Ns) 500 mg in 100 mls @ 200 mls/hr IVPB Q12 [facility] PRN Reason: Protocol Last Admin: 01/21/18 10:10 Dose: 200 mls/hr Cefepime HCl (Maxipime 2gm) 2 gm in 100 mls @ 100 mls/hr IVPB Q12 [facility] PRN Reason: Protocol Stop: 01/25/18 08:46 Last Admin: 01/21/18 10:09 Dose: 100 mls/hr Lisinopril (Zestril) 5 mg PO DAILY [facility] Last Admin: 01/21/18 10:08 Dose: 5 mg Methylprednisolone (Solu-Medrol) 40 mg IVP Q12 [facility] Last Admin: 01/21/18 10:09 Dose: 40 mg Montelukast Sodium (Singulair) 10 mg PO DAILY [facility] Last Admin: 01/21/18 10:08 Dose: 10 mg Pantoprazole Sodium (Protonix Ec Tab) 40 mg PO 0600 [facility] Last Admin: 01/21/18 06:38 Dose: 40 mg Timolol Maleate (Timoptic 0.5% Ophth Soln) 1 drop OU HS [facility] Last Admin: 01/20/18 21:19 Dose: 1 unit - Labs Labs: 01/21/18 07:00 01/21/18 07:00 PT 14.5 SECONDS (9.4-12.5) H 01/19/18 18:30 INR 1.27 (0.93-1.08) H 01/19/18 18:30 APTT 32.2 Seconds (25.1-36.5) 01/19/18 18:30 Attending/Attestation - Attestation I have personally seen and examined this patient.: Yes I have fully participated in the care of the patient.: Yes I have reviewed all pertinent clinical information, including history, physical exam and plan: Yes Notes (Text): I have seen and examined the patient at bedside. Agree with the above note with the following additions/ exceptions: Briefly this is 82 year old female with history of asthma, glaucoma, HTN, history of multiple episodes of pneumonia in the past with the last one being 2 years ago who was brought by the daughter for evaluation of persistent cough, fever and found to have RLL pneumonia. Patient was seen in ED however was not admitted recently. She was sent home on PO antibiotics. Upon admission, she was afebrile and leukocytosis is trending down. Procal is 1.5. Patient is on vancomycin, zithro and cefepime as per ID. Pulm consult requested as well. Yesterday patient complained of mild abdominal pain and had mild RUQ tenderness. Transaminitis was also noted. US GB revealed acute cholecystitis however she does not appear to be in pain. She does not even have abdominal tenderness today. Will consult Surgery and will make patient NPO for now. Echo result pending. Upon discharge patient will follow up with Dr Infante. Dr Neymar Fragoso
--- NOTE | 2018-01-21 09:01 | CP.PCM.PN ---
Subjective - Date & Time of Evaluation Date of Evaluation: 01/21/18 Time of Evaluation: 07:00 - Subjective Subjective: Stable on 3R. No CP or SOB. V/S noted. RSR PE: Lungs: rhonchi Cor.: S1S2 Abd.: soft Ext.: no edema Neuro.: alert BC X2 NG at 24 hrs. GB U/S noted: C/W acute evelyn. Echo: Prelim. > Nl LV. See full report. Objective - Vital Signs/Intake and Output Vital Signs (last 24 hours): Temp Pulse Resp BP Pulse Ox 97.7 F 84 20 124/68 96 01/21/18 06:00 01/21/18 06:00 01/21/18 06:00 01/21/18 06:00 01/21/18 06:00 Intake and Output: 01/21/18 01/21/18 06:59 18:59 Intake Total 540 Balance 540 - Medications Medications: Current Medications Albuterol/Ipratropium (Duoneb 3 Mg/0.5 Mg (3 Ml) Ud) 3 ml IH Q2H PRN PRN Reason: Shortness of Breath Last Admin: 01/21/18 04:26 Dose: 3 ml Albuterol/Ipratropium (Duoneb 3 Mg/0.5 Mg (3 Ml) Ud) 3 ml IH [id number] [facility] Last Admin: 01/21/18 08:04 Dose: 3 ml Enoxaparin Sodium (Lovenox) 30 mg SC DAILY [facility] PRN Reason: Protocol Azithromycin (Zithromax 500mg In Ns) 500 mg in 250 mls @ 167 mls/hr IVPB DAILY [facility] PRN Reason: Protocol Last Admin: 01/20/18 12:51 Dose: 167 mls/hr Vancomycin HCl (Vancomycin 500mg In Ns) 500 mg in 100 mls @ 200 mls/hr IVPB Q12 [facility] PRN Reason: Protocol Last Admin: 01/20/18 21:18 Dose: 200 mls/hr Cefepime HCl (Maxipime 2gm) 2 gm in 100 mls @ 100 mls/hr IVPB Q12 [facility] PRN Reason: Protocol Stop: 01/25/18 08:46 Last Admin: 01/20/18 21:18 Dose: 100 mls/hr Lisinopril (Zestril) 5 mg PO DAILY [facility] Last Admin: 01/20/18 10:08 Dose: 5 mg Methylprednisolone (Solu-Medrol) 40 mg IVP Q12 [facility] Last Admin: 01/20/18 21:18 Dose: 40 mg Montelukast Sodium (Singulair) 10 mg PO DAILY [facility] Last Admin: 01/20/18 10:08 Dose: 10 mg Pantoprazole Sodium (Protonix Ec Tab) 40 mg PO 0600 [facility] Last Admin: 01/21/18 06:38 Dose: 40 mg Timolol Maleate (Timoptic 0.5% Oph Soln) 1 drop OU HS [facility] Last Admin: 01/20/18 21:19 Dose: 1 unit - Labs Labs: 01/21/18 07:00 01/21/18 07:00 PT 14.5 SECONDS (9.4-12.5) H 01/19/18 18:30 INR 1.27 (0.93-1.08) H 01/19/18 18:30 APTT 32.2 Seconds (25.1-36.5) 01/19/18 18:30 Assessment and Plan - Assessment and Plan (Free Text) Assessment: SOB/Fever R/P pneumonia Abd GB U/S: acute cholecystitis APC's HBP sthma Glaucoma H/O Rt. ankle ORIF Plan: As per ID, Surgery, Medical Team. AB Check cultures OOB as princess.
[2018-01-21] MEDS: Cefepime IV 2 gm in NS 2 GM/100 ML BAG IVPB SCH ×2 (10:09→21:51)
[2018-01-21] MEDS: MethylPREDNISolone 40 mg Vial IVP SCH ×2 (10:09→21:51)
[2018-01-21] MEDS: Enoxaparin 30 mg Syringe SC SCH (10:09)
[2018-01-21] MEDS: Vancomycin 500mg in NS 500 MG/100 ML BAG IVPB SCH ×2 (10:10→21:51)
--- NOTE | 2018-01-21 10:27 | CARD ---
APPROVED REPORT EXAM: Two-dimensional and M-mode echocardiogram with Doppler and color Doppler. Other Information Quality : AverageRhythm : INDICATION SOB, pneumonia 2D DIMENSIONS IVSd1.1 (0.7-1.1cm)LVDd3.4 (3.9-5.9cm) PWd1.2 (0.7-1.1cm)LVDs2.3 (2.5-4.0cm) FS (%) 31.4 %LVEF (%)60.0 (>50%) M-Mode DIMENSIONS Aortic Root3.50 (2.2-3.7cm)Aortic Cusp Exc.1.50 (1.5-2.0cm) Aortic Valve AoV Peak Koitokbt223.0cm/s Mitral Valve MV E Tvjpbwnb35.1cm/sMV A Lltiwdhr38.1cm/sE/A ratio0.9 TDI Lateral E' Peak V6.04cm/sMedial E' Peak V5.26cm/sE/Lateral E'9.5 E/Medial E'10.9 Pulmonary Valve PV Peak Pzcrdzah59.3cm/sPV Peak Grad.3mmHg Tricuspid Valve TR Peak Wbcffhca330aj/sRAP IVGEOSGR98fnNlRI Peak Gr.39mmHg HWVK02ocGr LEFT VENTRICLE The left ventricle is normal size. There is normal left ventricular wall thickness. The left ventricular function is normal. The left ventricular ejection fraction is within the normal range. There is normal LV segmental wall motion. RIGHT VENTRICLE The right ventricle is normal size. ATRIA The left atrium size is normal. The right atrium size is normal. The interatrial septum is intact with no evidence for an atrial septal defect. AORTIC VALVE The aortic valve is mildly calcified. MITRAL VALVE The mitral valve is normal in structure. TRICUSPID VALVE The tricuspid valve is normal in structure. There is mild to moderate tricuspid regurgitation. There is mild-moderate pulmonary hypertension. PULMONIC VALVE The pulmonic valve is not well visualized. GREAT VESSELS The aortic root is normal in size. PERICARDIAL EFFUSION There is no pericardial effusion. <Conclusion> The left ventricle is normal size. There is normal left ventricular wall thickness. The left ventricular function is normal. There is mild to moderate tricuspid regurgitation. There is mild-moderate pulmonary hypertension.
[2018-01-21] MEDS: Azithromycin 500MG/NS 250ml 500 MG/250 ML BAG IVPB SCH (12:19)
--- NOTE | 2018-01-21 13:22 | CP.PCM.CON ---
History of Present Illness - History of Present Illness History of Present Illness: Surgery 82 F w PMH of COPD, HTN, Asthma and pneumonia is admitted for recurrent pneumonia. SUrgery is consulted to evaluate for cholecystitis. Pt was away in [place] and was diagnosed with pneumonia. She continued to have SOB, cough and fever. During hospital stay, US was done for RUQ pain. Patient had intermittent RUQ pain after eating for 2 years. They weren't severe enough to bother her. Pain is located on RUQ and to R back. Reporst nausea and anorexia. Denies diarrhea, CP, hematemesis, hematochezia, dysuria, hematuria. Durrenlty pt denies abd pain and nausea. Pt speaks [place] and is translated by her daughter. Currently patient and family wants to avoid surgery if possible. CT chest shows patchy infiltrate US: gallstones, GB wall 4.5 mm, CBD 2mm. Yin sign suspicious for cholecystitis WBC was 14 and Tbili was 3. They are improving PMH as above PSH Ankle sx Review of Systems - Review of Systems Review of Systems: See HPI Past Patient History - Infectious Disease Hx of Infectious Diseases: None - Past Social History Smoking Status: Never Smoked - CARDIAC Hx Hypertension: Yes - PULMONARY Hx Respiratory Disorders: Yes Hx Asthma: Yes Hx Chronic Obstructive Pulmonary Disease (COPD): Yes - HEENT Hx Glaucoma: Yes - MUSCULOSKELETAL/RHEUMATOLOGICAL Hx Falls: Yes (2010) - PSYCHIATRIC Hx Substance Use: No - SURGICAL HISTORY Hx Surgeries: Yes (right leg surgery) - ANESTHESIA Hx Anesthesia: No Hx Anesthesia Reactions: No Hx Malignant Hyperthermia: No Meds Allergies/Adverse Reactions: Allergies Allergy/AdvReac Type Severity Reaction Status Date / Time No Known Allergies Allergy Verified 06/01/15 11:01 - Medications Medications: Current Medications Albuterol/Ipratropium (Duoneb 3 Mg/0.5 Mg (3 Ml) Ud) 3 ml IH Q2H PRN PRN Reason: Shortness of Breath Last Admin: 01/21/18 04:26 Dose: 3 ml Albuterol/Ipratropium (Duoneb 3 Mg/0.5 Mg (3 Ml) Ud) 3 ml IH [id number] COUNT INCLUDES [facility] Last Admin: 01/21/18 08:04 Dose: 3 ml Enoxaparin Sodium (Lovenox) 30 mg SC DAILY [facility] PRN Reason: Protocol Last Admin: 01/21/18 10:09 Dose: 30 mg Azithromycin (Zithromax 500mg In Ns) 500 mg in 250 mls @ 167 mls/hr IVPB DAILY [facility] PRN Reason: Protocol Last Admin: 01/21/18 12:19 Dose: 167 mls/hr Vancomycin HCl (Vancomycin 500mg In Ns) 500 mg in 100 mls @ 200 mls/hr IVPB Q12 [facility] PRN Reason: Protocol Last Admin: 01/21/18 10:10 Dose: 200 mls/hr Cefepime HCl (Maxipime 2gm) 2 gm in 100 mls @ 100 mls/hr IVPB Q12 [facility] PRN Reason: Protocol Stop: 01/25/18 08:46 Last Admin: 01/21/18 10:09 Dose: 100 mls/hr Lisinopril (Zestril) 5 mg PO DAILY [facility] Last Admin: 01/21/18 10:08 Dose: 5 mg Methylprednisolone (Solu-Medrol) 40 mg IVP Q12 [facility] Last Admin: 01/21/18 10:09 Dose: 40 mg Montelukast Sodium (Singulair) 10 mg PO DAILY [facility] Last Admin: 01/21/18 10:08 Dose: 10 mg Pantoprazole Sodium (Protonix Ec Tab) 40 mg PO 0600 [facility] Last Admin: 01/21/18 06:38 Dose: 40 mg Timolol Maleate (Timoptic 0.5% Ophth Soln) 1 drop OU HS [facility] Last Admin: 01/20/18 21:19 Dose: 1 unit Physical Exam - Constitutional Appears: No Acute Distress - Head Exam Head Exam: ATRAUMATIC, NORMAL INSPECTION, NORMOCEPHALIC - Eye Exam Eye Exam: EOMI, Normal appearance, PERRL Pupil Exam: NORMAL ACCOMODATION, PERRL - ENT Exam ENT Exam: Mucous Membranes Moist, Normal Exam - Neck Exam Neck exam: Positive for: Normal Inspection - Respiratory Exam Respiratory Exam: Clear to Auscultation Bilateral, NORMAL BREATHING PATTERN - Cardiovascular Exam Cardiovascular Exam: REGULAR RHYTHM - GI/Abdominal Exam GI & Abdominal Exam: Normal Bowel Sounds, Soft. absent: Distended, Firm, Guarding, Hernia, Mass, Pulsatile Mass, Rebound, Rigid, Tenderness - Rectal Exam Rectal Exam: NORMAL INSPECTION - Exam Exam: NORMAL INSPECTION - Extremities Exam Extremities exam: Positive for: normal inspection - Back Exam Back exam: NORMAL INSPECTION - Neurological Exam Neurological exam: Alert, CN II-XII Intact, Normal Gait, Oriented x3, Reflexes Normal - Psychiatric Exam Psychiatric exam: Normal Affect, Normal Mood - Skin Skin Exam: Dry, Intact, Normal Color, Warm Results - Vital Signs Recent Vital Signs: Last Vital Signs Temp 97.7 F 01/21/18 06:00 Pulse 93 H 01/21/18 10:08 Resp 20 01/21/18 06:00 BP 138/75 01/21/18 10:08 Pulse Ox 96 01/21/18 06:00 - Labs Result Diagrams: 01/21/18 07:00 01/21/18 07:00 Labs: Laboratory Results - last 24 hr 01/20/18 01/20/18 01/21/18 07:50 07:50 07:00 WBC 9.6 D RBC 3.92 Hgb 11.9 L Hct 35.9 L MCV 91.6 MCH 30.4 MCHC 33.1 RDW 14.1 Plt Count 354 MPV 9.0 Sodium Potassium Chloride Carbon Dioxide Anion Gap BUN Creatinine Est GFR ( Amer) Est GFR (Non-Af Amer) Random Glucose Calcium Phosphorus Magnesium Total Bilirubin AST ALT Alkaline Phosphatase Total Protein Albumin Globulin Albumin/Globulin Ratio Procalcitonin 1.50 H Coccidioides Ab TNP 01/21/18 07:00 WBC RBC Hgb Hct MCV MCH MCHC RDW Plt Count MPV Sodium 141 Potassium 4.5 Chloride 101 Carbon Dioxide 28 Anion Gap 16 BUN 16 Creatinine 0.7 Est GFR ( Amer) > 60 Est GFR (Non-Af Amer) > 60 Random Glucose 150 H Calcium 9.1 Phosphorus 3.7 Magnesium 2.9 H Total Bilirubin 0.9 AST 38 H ALT 36 Alkaline Phosphatase 123 Total Protein 7.1 Albumin 3.3 Globulin 3.8 Albumin/Globulin Ratio 0.9 L Procalcitonin Coccidioides Ab Assessment & Plan - Assessment and Plan (Free Text) Assessment: 82 F cholelithiasis v cholecystitis : currently asymptomatic. Pt wants to avoid surgery if possible. CT chest shows patchy infiltrate US: gallstones, GB wall 4.5 mm, CBD 2mm. Yin sign suspicious for cholecystitis WBC was 14 and Tbili was 3. They are improving Plan: Advance diet as tolerated Will monitor Possible elective outpatient surgery after pneumonia resolved if patient continues to be asymptomatic Possible Inpatient surgery after pneumonia resolved if symptoms get worsen ABX Pt seen and case discussed with Dr. Bhandari
--- NOTE | 2018-01-22 01:28 | PN ---
DATE: 01/21/2018 SUBJECTIVE: Patient was seen early this morning in room 373, bed 2. Patient is in no acute distress, nontoxic. No fevers and chills. PHYSICAL EXAMINATION: VITAL SIGNS: Temperature is 98, blood pressure is 120/70, respiratory rate of 18, heart rate of 93. HEENT: Unremarkable. NECK: Supple. LUNGS: Decreased breath sounds. HEART: Normal S1, S2. ABDOMEN: Soft, nontender. LABORATORY DATA: Laboratory examination reveals the patient's white count is down to 9.6, hemoglobin of 11. Chemistries reveal BUN of 17, creatinine of 0.6, procalcitonin is 1.5. Microbiology reveals blood cultures are negative. Urine cultures have contamination. Review of orders reveals the patient have urine for Legionella is ordered. Patient is on cefepime, Solu-Medrol, vancomycin, azithromycin and Dr. Bhandari's note is reviewed. ASSESSMENT AND PLAN: This is an 82-year-old female seen earlier this morning in 373, bed 2 with history of asthma, glaucoma, and admitted with sepsis with multifocal healthcare-associated pneumonia, possible gram-positive cocci, possible gram-negative rods, elevated procalcitonin, asthma, hypertension, glaucoma, on vancomycin, cefepime, and doxycycline and we will check on final culture results and should be treated 4 to 7 days, maybe able to switch to p.o. in the next 24 hours. Kip Philip MD
[2018-01-22] MEDS: Albuterol-Ipratrop 3 mg / 0.5 (3 ml) UD IH SCH ×4 (04:15→22:20)
[2018-01-22] MEDS: Pantoprazole 40 mg EC Tab PO SCH (05:08)
[2018-01-22 07:08] LABS: HEMOGLOBIN 11.8 g/dL (12.0-16.0); MEAN CELL VOLUME 91.8 fl (80.0-105.0); MEAN CORPUSCULAR HEMOGLOBIN 30.3 pg (25.0-35.0); MEAN CORPUSCULAR HGB CONC 33.1 g/dl (31.0-37.0); MEAN PLATELET VOLUME 9.1 fl (7.0-11.0); RBC 3.89 10^6/uL (3.5-6.1); RED CELL DISTRIBUTION WIDTH 13.9 % (11.5-14.5); WHITE BLOOD COUNT 15.5 10^3/ul (4.5-11.0)
--- NOTE | 2018-01-22 07:58 | CON ---
DATE: Patient is afebrile. Vital signs are normal. Her white count initially was 14, now down to 9. Hemoglobin 11.9. Bilirubin was initially 2.8, now it is down to 0.9. Alk phos is 132 and . There is a gallbladder ultrasound done on 01/20/2018, showing cholelithiasis and some mild tenderness. There is a chest CT done on 01/19/2018 showing a right pleural effusion and some consolidation in mid lung rodriguez. Consults with Dr. Iyer and Dr. Casillas are pending. Patient is probably a candidate of cholecystectomy, but before the pneumonia to resolve first. We will follow with you and probably get a HIDA. Ludin Bhandari MD
[2018-01-22 08:34] LABS: ALB/GLOB RATIO 0.9 (1.1-1.8); ALBUMIN 3.2 g/dL (3.0-4.8); ALT/SGPT 44 U/L (7-56); AST/SGOT 53 U/L (14-36); BLOOD UREA NITROGEN 21 mg/dL (7-21); CALCIUM 9.3 mg/dL (8.4-10.5); GFR AFRICAN-AMERICAN > 60; GFR NON-AFRICAN AMERICAN > 60
--- NOTE | 2018-01-22 08:55 | CP.PCM.PN ---
Subjective - Date & Time of Evaluation Date of Evaluation: 01/22/18 Time of Evaluation: 08:55 - Subjective Subjective: Surgery Pt seen and examined. Denies abd pain, nausea, vomiting, fever. Tolerating CLD. + void, + ambulating. Objective - Vital Signs/Intake and Output Vital Signs (last 24 hours): Temp Pulse Resp BP Pulse Ox 97.7 F 88 18 147/84 94 L 01/22/18 06:00 01/22/18 06:00 01/22/18 06:00 01/22/18 06:00 01/22/18 06:00 Intake and Output: 01/22/18 01/22/18 06:59 18:59 Intake Total 200 860 Output Total 2 Balance 200 858 - Medications Medications: Current Medications Albuterol/Ipratropium (Duoneb 3 Mg/0.5 Mg (3 Ml) Ud) 3 ml IH Q2H PRN PRN Reason: Shortness of Breath Last Admin: 01/21/18 04:26 Dose: 3 ml Albuterol/Ipratropium (Duoneb 3 Mg/0.5 Mg (3 Ml) Ud) 3 ml IH [id number] [facility] Last Admin: 01/22/18 07:35 Dose: 3 ml Benzonatate (Tessalon Perles) 100 mg PO TID [facility] Enoxaparin Sodium (Lovenox) 30 mg SC DAILY [facility] PRN Reason: Protocol Last Admin: 01/21/18 10:09 Dose: 30 mg Azithromycin (Zithromax 500mg In Ns) 500 mg in 250 mls @ 167 mls/hr IVPB DAILY [facility] PRN Reason: Protocol Last Admin: 01/21/18 12:19 Dose: 167 mls/hr Vancomycin HCl (Vancomycin 500mg In Ns) 500 mg in 100 mls @ 200 mls/hr IVPB Q12 [facility] PRN Reason: Protocol Last Admin: 01/21/18 21:51 Dose: 200 mls/hr Cefepime HCl (Maxipime 2gm) 2 gm in 100 mls @ 100 mls/hr IVPB Q12 [facility] PRN Reason: Protocol Stop: 01/25/18 08:46 Last Admin: 01/21/18 21:51 Dose: 100 mls/hr Lisinopril (Zestril) 5 mg PO DAILY [facility] Last Admin: 01/21/18 10:08 Dose: 5 mg Methylprednisolone (Solu-Medrol) 40 mg IVP Q12 [facility] Last Admin: 01/21/18 21:51 Dose: 40 mg Montelukast Sodium (Singulair) 10 mg PO DAILY [facility] Last Admin: 01/21/18 10:08 Dose: 10 mg Pantoprazole Sodium (Protonix Ec Tab) 40 mg PO 0600 [facility] Last Admin: 01/22/18 05:08 Dose: 40 mg Timolol Maleate (Timoptic 0.5% Ophth Soln) 1 drop OU HS [facility] Last Admin: 01/21/18 21:51 Dose: 1 unit - Labs Labs: 01/22/18 06:00 01/22/18 06:00 PT 14.5 SECONDS (9.4-12.5) H 01/19/18 18:30 INR 1.27 (0.93-1.08) H 01/19/18 18:30 APTT 32.2 Seconds (25.1-36.5) 01/19/18 18:30 - Constitutional Appears: No Acute Distress - Head Exam Head Exam: ATRAUMATIC, NORMAL INSPECTION, NORMOCEPHALIC - Eye Exam Eye Exam: EOMI, Normal appearance, PERRL Pupil Exam: NORMAL ACCOMODATION, PERRL - ENT Exam ENT Exam: Mucous Membranes Moist, Normal Exam - Neck Exam Neck Exam: Full ROM, Normal Inspection. absent: Lymphadenopathy - Respiratory Exam Respiratory Exam: NORMAL BREATHING PATTERN - Cardiovascular Exam Cardiovascular Exam: REGULAR RHYTHM, +S1, +S2. absent: Murmur - GI/Abdominal Exam GI & Abdominal Exam: Soft, Normal Bowel Sounds. absent: Distended, Firm, Guarding, Rigid, Tenderness - Exam Exam: NORMAL INSPECTION - Extremities Exam Extremities Exam: Full ROM, Normal Capillary Refill, Normal Inspection. absent : Joint Swelling, Pedal Edema - Back Exam Back Exam: NORMAL INSPECTION - Neurological Exam Neurological Exam: Alert, Awake, CN II-XII Intact, Normal Gait, Oriented x3 - Psychiatric Exam Psychiatric exam: Normal Affect, Normal Mood - Skin Skin Exam: Dry, Intact, Normal Color, Warm Assessment and Plan - Assessment and Plan (Free Text) Assessment: 82 F cholelithiasis v cholecystitis : currently asymptomatic. Pt wants to avoid surgery if possible. CT chest shows patchy infiltrate US: gallstones, GB wall 4.5 mm, CBD 2mm. Yin sign suspicious for cholecystitis WBC 15 and Tbili was 3 wnl now. Plan: Advance diet as tolerated Will monitor Possible elective outpatient surgery after pneumonia resolved if patient continues to be asymptomatic and reluctant for surgery Possible Inpatient surgery after pneumonia resolved if GB symptoms get worsen: Will get HIDA ABX Will DW with Dr. Bhandari
--- NOTE | 2018-01-22 09:14 | CP.PCM.PN ---
<Opal Ferreira - Last Filed: 01/22/18 13:00> Subjective - Date & Time of Evaluation Date of Evaluation: 01/22/18 Time of Evaluation: 09:13 - Subjective Subjective: PGY-2 progress note for hospitalist service Patient seen and examined at bedside. No acute distress. Patient states that her breathing and cough has improved. Patient states that she no longer has abd pain. Objective - Vital Signs/Intake and Output Vital Signs (last 24 hours): Temp Pulse Resp BP Pulse Ox 97.7 F 88 18 147/84 94 L 01/22/18 06:00 01/22/18 06:00 01/22/18 06:00 01/22/18 06:00 01/22/18 06:00 Intake and Output: 01/22/18 01/22/18 06:59 18:59 Intake Total 200 860 Output Total 2 Balance 200 858 - Medications Medications: Current Medications Albuterol/Ipratropium (Duoneb 3 Mg/0.5 Mg (3 Ml) Ud) 3 ml IH Q2H PRN PRN Reason: Shortness of Breath Last Admin: 01/21/18 04:26 Dose: 3 ml Albuterol/Ipratropium (Duoneb 3 Mg/0.5 Mg (3 Ml) Ud) 3 ml IH [id number] [facility] Last Admin: 01/22/18 07:35 Dose: 3 ml Benzonatate (Tessalon Perles) 100 mg PO TID [facility] Enoxaparin Sodium (Lovenox) 30 mg SC DAILY [facility] PRN Reason: Protocol Last Admin: 01/21/18 10:09 Dose: 30 mg Azithromycin (Zithromax 500mg In Ns) 500 mg in 250 mls @ 167 mls/hr IVPB DAILY [facility] PRN Reason: Protocol Last Admin: 01/21/18 12:19 Dose: 167 mls/hr Vancomycin HCl (Vancomycin 500mg In Ns) 500 mg in 100 mls @ 200 mls/hr IVPB Q12 [facility] PRN Reason: Protocol Last Admin: 01/21/18 21:51 Dose: 200 mls/hr Cefepime HCl (Maxipime 2gm) 2 gm in 100 mls @ 100 mls/hr IVPB Q12 [facility] PRN Reason: Protocol Stop: 01/25/18 08:46 Last Admin: 01/21/18 21:51 Dose: 100 mls/hr Lisinopril (Zestril) 5 mg PO DAILY [facility] Last Admin: 01/21/18 10:08 Dose: 5 mg Methylprednisolone (Solu-Medrol) 40 mg IVP DAILY [facility] Montelukast Sodium (Singulair) 10 mg PO DAILY [facility] Last Admin: 01/21/18 10:08 Dose: 10 mg Multi-Ingredient Cream (Hydrocerin Cream) 0 ea TOP DAILY [facility] Pantoprazole Sodium (Protonix Ec Tab) 40 mg PO 0600 [facility] Last Admin: 01/22/18 05:08 Dose: 40 mg Timolol Maleate (Timoptic 0.5% Ophth Soln) 1 drop OU HS [facility] Last Admin: 01/21/18 21:51 Dose: 1 unit - Labs Labs: 01/22/18 06:00 01/22/18 06:00 PT 14.5 SECONDS (9.4-12.5) H 01/19/18 18:30 INR 1.27 (0.93-1.08) H 01/19/18 18:30 APTT 32.2 Seconds (25.1-36.5) 01/19/18 18:30 - Constitutional Appears: No Acute Distress - Head Exam Head Exam: ATRAUMATIC, NORMAL INSPECTION, NORMOCEPHALIC - Eye Exam Eye Exam: EOMI, Normal appearance - Respiratory Exam Respiratory Exam: Wheezes (mild), NORMAL BREATHING PATTERN - Cardiovascular Exam Cardiovascular Exam: Tachycardia, REGULAR RHYTHM, +S1, +S2 - GI/Abdominal Exam GI & Abdominal Exam: Soft, Normal Bowel Sounds. absent: Distended, Firm, Tenderness - Neurological Exam Neurological Exam: Alert, Awake, Oriented x3 - Skin Skin Exam: Dry, Intact, Normal Color, Warm Assessment and Plan - Assessment and Plan (Free Text) Assessment: 82 yo F with PMH of asthma, glaucoma and HTN admitted for evaluation and treatment for community acquired pneumonia, found to have cholecysitis, UTI and transaminitis. Plan: Community acquired pneumonia - Afebrile, leukocytosis downtrending - CXR showed right lower lobe pneumonia - CT chest showed patchy scattered areas of groundglass opacity, consolidation, and nodular infiltrates bilaterally, consolidation is most prominent in the mid lung (right), no PE - Influenza negative - antibiotic de-escalated to continue Azithromycin - Blood culture negative after 48 hours - ID consulted - pulm consulted, recommendation are appreciated cholecysitis - tenderness of RUQ has resolved - transaminitis, is improving - AB US showed cholelithiasis with evidence for acute cholecysitis - patient on liquid diet - surgery consulted, recommend outpatient follow up once pna has resolved Asthma - Duoneb nabeel and prn - Singulair - Solumedrol decreased to 40 mg daily CHF - BNP 1520 - Troponin negative x 3 - Echo EF60%, mild TR, mild pulm HTN - Strict I's and O's - Daily weights - Head of bed to 30 degrees - lasix discontinued - Cardiology consulted UTI - UA showed trace leukocyte esterase - Urine culture contaminated - continue antibiotics Azithromycin H/o Glaucoma - Cont home medication GI/DVT PPx - Lovenox - Protonix <Neymar Fragoso - Last Filed: 01/22/18 15:56> Objective - Vital Signs/Intake and Output Vital Signs (last 24 hours): Temp Pulse Resp BP Pulse Ox 98.5 F 53 L 16 93/55 L 94 L 01/22/18 12:00 01/22/18 12:00 01/22/18 12:00 01/22/18 12:00 01/22/18 06:00 Intake and Output: 01/22/18 01/22/18 06:59 18:59 Intake Total 200 1520 Output Total 2 Balance 200 1518 - Medications Medications: Current Medications Albuterol/Ipratropium (Duoneb 3 Mg/0.5 Mg (3 Ml) Ud) 3 ml IH Q2H PRN PRN Reason: Shortness of Breath Last Admin: 01/21/18 04:26 Dose: 3 ml Albuterol/Ipratropium (Duoneb 3 Mg/0.5 Mg (3 Ml) Ud) 3 ml IH [id number] [facility] Last Admin: 01/22/18 14:20 Dose: 3 ml Benzonatate (Tessalon Perles) 100 mg PO TID [facility] Last Admin: 01/22/18 15:00 Dose: 100 mg Enoxaparin Sodium (Lovenox) 30 mg SC DAILY [facility] PRN Reason: Protocol Last Admin: 01/22/18 10:35 Dose: 30 mg Azithromycin (Zithromax 500mg In Ns) 500 mg in 250 mls @ 167 mls/hr IVPB DAILY [facility] PRN Reason: Protocol Last Admin: 01/22/18 10:34 Dose: 167 mls/hr Lisinopril (Zestril) 5 mg PO DAILY [facility] Last Admin: 01/22/18 10:34 Dose: 5 mg Methylprednisolone (Solu-Medrol) 40 mg IVP DAILY [facility] Last Admin: 01/22/18 10:35 Dose: 40 mg Montelukast Sodium (Singulair) 10 mg PO DAILY [facility] Last Admin: 01/22/18 10:35 Dose: 10 mg Multi-Ingredient Cream (Hydrocerin Cream) 0 ea TOP DAILY [facility] Last Admin: 01/22/18 10:38 Dose: 1 apful Pantoprazole Sodium (Protonix Ec Tab) 40 mg PO 0600 [facility] Last Admin: 01/22/18 05:08 Dose: 40 mg Timolol Maleate (Timoptic 0.5% Ophth Soln) 1 drop OU HS [facility] Last Admin: 01/21/18 21:51 Dose: 1 unit - Labs Labs: 01/22/18 06:00 01/22/18 06:00 PT 14.5 SECONDS (9.4-12.5) H 01/19/18 18:30 INR 1.27 (0.93-1.08) H 01/19/18 18:30 APTT 32.2 Seconds (25.1-36.5) 01/19/18 18:30 Attending/Attestation - Attestation I have personally seen and examined this patient.: Yes I have fully participated in the care of the patient.: Yes I have reviewed all pertinent clinical information, including history, physical exam and plan: Yes Notes (Text): I have seen and examined the patient at bedside. Agree with the above note with the following additions/ exceptions: Briefly this is 82 year old female with history of asthma, glaucoma, HTN, beryllium exposure, history of multiple episodes of pneumonia in the past with the last one being 2 years ago who was brought by the daughter for evaluation of persistent cough, fever and found to have RLL pneumonia. Patient was seen in ED however was not admitted recently. She was sent home on PO antibiotics. Upon admission, she was afebrile and leukocytosis is trending down. Procal is 1.5. Patient was initially was getting treatment for HCAP and antibiotics were de escalated to zithromax today. Pulm consult appreciated. Patient needs outpatient PFT's and HRCT once her symptoms gets resolved. Upon admission, patient complained of mild abdominal pain and had mild RUQ tenderness. Transaminitis was also noted. US GB revealed acute cholecystitis however she does not appear to be in pain. She does not even have abdominal tenderness today.Surgery consult appreciated. HIDA ordered. Echo reviewed. Upon discharge patient will follow up with Dr Infante. Dr Neymar Fragoso
[2018-01-22] MEDS ORDERED: MethylPREDNISolone 40 mg Vial IVP SCH (10:00)
[2018-01-22] MEDS: Azithromycin 500MG/NS 250ml 500 MG/250 ML BAG IVPB SCH (10:34)
[2018-01-22] MEDS: Enoxaparin 30 mg Syringe SC SCH (10:35)
[2018-01-22] MEDS: Hydrocerin(120 gm) TOP SCH (10:38)
[2018-01-22] MEDS: MethylPREDNISolone 40 mg Vial IVP SCH (21:59)
--- NOTE | 2018-01-22 23:39 | CP.PCM.CON ---
Past Patient History - Infectious Disease Hx of Infectious Diseases: None - Past Social History Smoking Status: Never Smoked - CARDIAC Hx Hypertension: Yes - PULMONARY Hx Respiratory Disorders: Yes Hx Asthma: Yes Hx Chronic Obstructive Pulmonary Disease (COPD): Yes - HEENT Hx Glaucoma: Yes - MUSCULOSKELETAL/RHEUMATOLOGICAL Hx Falls: Yes (2010) - PSYCHIATRIC Hx Substance Use: No - SURGICAL HISTORY Hx Surgeries: Yes (right leg surgery) - ANESTHESIA Hx Anesthesia: No Hx Anesthesia Reactions: No Hx Malignant Hyperthermia: No Meds Allergies/Adverse Reactions: Allergies Allergy/AdvReac Type Severity Reaction Status Date / Time No Known Allergies Allergy Verified 06/01/15 11:01 - Medications Medications: Current Medications Albuterol/Ipratropium (Duoneb 3 Mg/0.5 Mg (3 Ml) Ud) 3 ml IH Q2H PRN PRN Reason: Shortness of Breath Last Admin: 01/21/18 04:26 Dose: 3 ml Albuterol/Ipratropium (Duoneb 3 Mg/0.5 Mg (3 Ml) Ud) 3 ml IH [id number] [facility] Last Admin: 01/22/18 22:20 Dose: 3 ml Benzonatate (Tessalon Perles) 100 mg PO TID [facility] Last Admin: 01/22/18 18:52 Dose: 100 mg Doxycycline Hyclate (Doryx) 100 mg PO Q12 [facility] PRN Reason: Protocol Last Admin: 01/22/18 21:59 Dose: 100 mg Enoxaparin Sodium (Lovenox) 30 mg SC DAILY [facility] PRN Reason: Protocol Last Admin: 01/22/18 10:35 Dose: 30 mg Lisinopril (Zestril) 5 mg PO DAILY [facility] Last Admin: 01/22/18 10:34 Dose: 5 mg Methylprednisolone (Solu-Medrol) 40 mg IVP Q8 [facility] Last Admin: 01/22/18 21:59 Dose: 40 mg Montelukast Sodium (Singulair) 10 mg PO DAILY [facility] Last Admin: 01/22/18 10:35 Dose: 10 mg Multi-Ingredient Cream (Hydrocerin Cream) 0 ea TOP DAILY [facility] Last Admin: 01/22/18 10:38 Dose: 1 apful Pantoprazole Sodium (Protonix Ec Tab) 40 mg PO 0600 [facility] Last Admin: 01/22/18 05:08 Dose: 40 mg Roflumilast (Daliresp) 500 mcg PO DAILY [facility] Timolol Maleate (Timoptic 0.5% Ophth Soln) 1 drop OU HS [facility] Last Admin: 01/22/18 21:58 Dose: 1 unit Results - Vital Signs Recent Vital Signs: Last Vital Signs Temp 97.8 F 01/22/18 18:00 Pulse 82 01/22/18 22:00 Resp 20 01/22/18 18:00 BP 116/73 01/22/18 18:00 Pulse Ox 97 01/22/18 18:00 - Labs Result Diagrams: 01/22/18 06:00 01/22/18 06:00 Labs: Laboratory Results - last 24 hr 01/22/18 01/22/18 01/22/18 06:00 06:00 14:20 WBC 15.5 H D RBC 3.89 Hgb 11.8 L Hct 35.7 L MCV 91.8 MCH 30.3 MCHC 33.1 RDW 13.9 Plt Count 429 MPV 9.1 Sodium 142 Potassium 4.5 Chloride 107 Carbon Dioxide 28 Anion Gap 12 BUN 21 Creatinine 0.7 Est GFR ( Amer) > 60 Est GFR (Non-Af Amer) > 60 Random Glucose 179 H Calcium 9.3 Phosphorus 2.5 Magnesium 3.0 H Total Bilirubin 0.7 AST 53 H D ALT 44 Alkaline Phosphatase 124 Total Protein 6.9 Albumin 3.2 Globulin 3.6 Albumin/Globulin Ratio 0.9 L Ur L.pneumophila Ag Negative
[2018-01-23] MEDS: Albuterol-Ipratrop 3 mg / 0.5 (3 ml) UD IH SCH ×4 (03:30→21:15)
--- NOTE | 2018-01-23 04:33 | CON ---
DATE: 01/22/2018 PULMONARY CONSULTATION REFERRING PHYSICIAN: Neymar Fragoso MD REASON FOR CONSULTATION: Chronic obstructive lung disease with infiltrate, fibrosis. HISTORY OF PRESENT ILLNESS: This is an 82-year-old female, I believe originally from 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 After three years of that, she developed asthma since then has frequent pneumonia exacerbations. At one point, she was admitted to [facility] where had a PFT and other workup done more than a year ago or so. Other issues are hypertension, history of ankle fracture, cataract surgery, came into emergency room with cough, shortness of breath, on and off fever. She gets short of breath with minimal exertion also had some fever on admission, seen by Infectious Disease, was started on antibiotics. She does have a cough, some sputum production. No hemoptysis, hematemesis, hematuria and diarrhea reported. PAST MEDICAL HISTORY: Chronic obstructive lung disease, hypertension. ALLERGIES: NONE KNOWN. SOCIAL HISTORY: Nonsmoker, nondrinker. 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 FAMILY HISTORY: No significant cardiopulmonary disease reported. MEDICATIONS: She is on DuoNeb every 12 p.r.n., every 6 hour round the clock, Lovenox 30 mg daily, Protonix 40 mg daily, Singulair 10 mg daily, Solu-Medrol 40 mg daily, Tessalon Perles 100 mg three times a day, Zestril 5 mg daily, Zithromax 500 mg daily. REVIEW OF SYSTEMS: No headache. No rhinitis. Admit to have snoring, daytime sleeping. Some sputum production. Short of breath. No nausea. No vomiting. No diarrhea. No leg pain or leg swelling. PHYSICAL EXAMINATION: GENERAL: Sitting on side of the bed with cough and shortness of breath. VITAL SIGNS: Temperature is 98, heart rate is 53, respiratory rate is 18, blood pressure 93/55, pulse ox 94% on 2 liters nasal cannula. HEENT: Moist mucous membrane. Crowded airway. Mallampati score is 3. LUNGS: Have a poor airflow with bilateral wheezing. HEART: S1 and S2. ABDOMEN: Soft, nontender. No organomegaly. EXTREMITIES: No edema. NEUROLOGICAL: Awake, alert. Follows simple command. LABORATORY DATA: Shows hemoglobin 11.8, hematocrit 35.7, WBC 15,000, platelets 429. Sodium 142, potassium 4.5, chloride 107, bicarbonate 21, BUN 21, creatinine is 0.7, calcium 9.3, total bili 0.7, phosphorous 2.5, AST 53, ALT 44, magnesium 3.0, albumin 3.2. Procalcitonin on admission was 1.50. Influenza A and B is negative. Legionella in the urine is negative. Microbiology: Blood culture is negative. Urine culture seems contaminated. DIAGNOSTIC DATA: CAT scan of the chest shows bilateral pneumonitis, infiltrates. 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 Case discussed in detail with the patient's daughter at bedside. All the questions answered. Also spoke to Dr. Neymar Fragoso in detail. I agree with the present management. We will increase Solu-Medrol to 40 every 8 hour. Add Singulair 10 mg daily. May add Daliresp 500 mcg daily. Continue gastric prophylaxis. We will suggest discontinuing Zithromax, adding doxycycline 100 mg twice a day. According to echo, she also have a pulmonary hypertension probably secondary to chronic lung disease. We will suggest having full PFT and attended sleep study upon discharge as outpatient. Thank you and we will follow with you. Joaquim Iyer MD
[2018-01-23] MEDS: MethylPREDNISolone 40 mg Vial IVP SCH ×3 (05:27→22:00)
[2018-01-23] MEDS: Pantoprazole 40 mg EC Tab PO SCH (05:28)
--- NOTE | 2018-01-23 06:20 | PN ---
LOCATION: The patient is seen earlier today in 377, bed 1. SUBJECTIVE: The patient is doing much better, she states and she is much improved. Her temperature is normal. Her breathing is much improved. OBJECTIVE VITAL SIGNS: Respiratory rate of 19, heart rate of 98. HEENT: Examination is unremarkable. NECK: Supple. LUNGS: Have decreased breath sounds. HEART: Normal S1, S2. ABDOMEN: Soft. LABORATORY DATA: Examination reveals a white count is down to 9600 this morning, it was up to 15,000. Coagulation is noted and chemistries reveal a BUN of 21, creatinine of 0.7. Procalcitonin is 1.5. Urinalysis is noted and serology for influenza is negative. Microbiology reveals the blood cultures are negative and the patient is currently on vancomycin and cefepime. The patient's EKG shows a QTc of 424. ASSESSMENT AND PLAN: An 82-year-old female seen earlier today in 377, bed 1 with history of asthma, glaucoma, admitted with sepsis, multifocal healthcare-associated pneumonia, possible Gram-positive cocci, possible Gram-negative jelani and elevated procalcitonin, asthma, hypertension, glaucoma and on vancomycin, cefepime and doxycycline. We will switch to p.o. Levaquin and needs followup with Pulmonary and primary followup the imaging to resolution, and surgical followup as far as the gallbladder disease is concerned. We will switch to p.o. azithromycin and complete therapy and followup with gallbladder disease and complete with 5 to 7 days of p.o. azithromycin. We will follow with you. The patient is on Solu-Medrol, which may explain the leukocytosis. Kip Philip MD
[2018-01-23 07:10] LABS: MEAN CELL VOLUME 93.1 fl (80.0-105.0); MEAN CORPUSCULAR HEMOGLOBIN 30.2 pg (25.0-35.0); MEAN CORPUSCULAR HGB CONC 32.4 g/dl (31.0-37.0); MEAN PLATELET VOLUME 8.8 fl (7.0-11.0); RBC 3.64 10^6/uL (3.5-6.1); RED CELL DISTRIBUTION WIDTH 14.2 % (11.5-14.5); WHITE BLOOD COUNT 12.6 10^3/ul (4.5-11.0)
[2018-01-23 07:41] LABS: ALB/GLOB RATIO 0.9 (1.1-1.8); ALBUMIN 2.9 g/dL (3.0-4.8); ALT/SGPT 53 U/L (7-56); AST/SGOT 43 U/L (14-36); BLOOD UREA NITROGEN 20 mg/dL (7-21); CALCIUM 8.9 mg/dL (8.4-10.5); GFR AFRICAN-AMERICAN > 60; GFR NON-AFRICAN AMERICAN > 60
[2018-01-23] MEDS ORDERED: Sod Polystyrene Sulf 15 gm/60 ml Susp PO ONE (08:56)
[2018-01-23] MEDS: Enoxaparin 30 mg Syringe SC SCH (09:20)
--- NOTE | 2018-01-23 10:03 | CP.PCM.CON ---
<Akin English - Last Filed: 01/23/18 10:10> History of Present Illness - History of Present Illness History of Present Illness: PGY4 GI Initial Consult Sylvia Corrigan is a 82F w/ hx of COPD, HTN, Asthma and pneumonia is admitted for recurrent pneumonia and abd pain. Pt was stated that her pain was in the RUQ and radiated towards the back. During hospital stay, US was done for RUQ pain. Patient had intermittent RUQ pain after eating for 2 years, but her pain was short-lived and it did not warrant further work-up. She initially had nausea and food aversion. She sattes that he had normal BM without diarrhea, hematemesis, hematochezia. Her T. Sarahy was initially elevated to 3.1, but they quickly declined. Her cbd was 2.4mm according to Abd U/S. PMH:COPD, HTN, Asthma PSH Ankle sx Social Hx: denies any ETOH, illicit drug or tobacco use Family hx: reviewed; denies any colon ca, liver or pancreas ca Endo hx: denies any previous endoscopy or colonoscopy ROS: 12 point ROS conducted and other than above it s other gallego neg. Past Patient History - Infectious Disease Hx of Infectious Diseases: None - Past Social History Smoking Status: Never Smoked - CARDIAC Hx Hypertension: Yes - PULMONARY Hx Respiratory Disorders: Yes Hx Asthma: Yes Hx Chronic Obstructive Pulmonary Disease (COPD): Yes - HEENT Hx Glaucoma: Yes - MUSCULOSKELETAL/RHEUMATOLOGICAL Hx Falls: Yes (2010) - PSYCHIATRIC Hx Substance Use: No - SURGICAL HISTORY Hx Surgeries: Yes (right leg surgery) - ANESTHESIA Hx Anesthesia: No Hx Anesthesia Reactions: No Hx Malignant Hyperthermia: No Meds Allergies/Adverse Reactions: Allergies Allergy/AdvReac Type Severity Reaction Status Date / Time No Known Allergies Allergy Verified 06/01/15 11:01 - Medications Medications: Current Medications Albuterol/Ipratropium (Duoneb 3 Mg/0.5 Mg (3 Ml) Ud) 3 ml IH Q2H PRN PRN Reason: Shortness of Breath Last Admin: 01/21/18 04:26 Dose: 3 ml Albuterol/Ipratropium (Duoneb 3 Mg/0.5 Mg (3 Ml) Ud) 3 ml IH [id number] [facility] Last Admin: 01/23/18 08:17 Dose: 3 ml Benzonatate (Tessalon Perles) 100 mg PO TID [facility] Last Admin: 01/23/18 09:20 Dose: 100 mg Doxycycline Hyclate (Doryx) 100 mg PO Q12 [facility] PRN Reason: Protocol Last Admin: 01/23/18 09:20 Dose: 100 mg Enoxaparin Sodium (Lovenox) 30 mg SC DAILY [facility] PRN Reason: Protocol Last Admin: 01/23/18 09:20 Dose: 30 mg Lisinopril (Zestril) 5 mg PO DAILY [facility] Last Admin: 01/23/18 09:20 Dose: 5 mg Methylprednisolone (Solu-Medrol) 40 mg IVP Q8 [facility] Last Admin: 01/23/18 05:27 Dose: 40 mg Montelukast Sodium (Singulair) 10 mg PO DAILY [facility] Last Admin: 01/23/18 09:20 Dose: 10 mg Multi-Ingredient Cream (Hydrocerin Cream) 0 ea TOP DAILY [facility] Last Admin: 01/22/18 10:38 Dose: 1 apful Pantoprazole Sodium (Protonix Ec Tab) 40 mg PO 0600 [facility] Last Admin: 01/23/18 05:28 Dose: Not Given Roflumilast (Daliresp) 500 mcg PO DAILY [facility] Last Admin: 01/23/18 09:20 Dose: 500 mcg Timolol Maleate (Timoptic 0.5% Oph Soln) 1 drop OU HS [facility] Last Admin: 01/22/18 21:58 Dose: 1 unit Physical Exam - Constitutional Appears: Well, No Acute Distress - Head Exam Head Exam: ATRAUMATIC, NORMOCEPHALIC - Eye Exam Eye Exam: Normal appearance - ENT Exam ENT Exam: Mucous Membranes Moist, Normal Exam - Neck Exam Neck exam: Positive for: Normal Inspection - Respiratory Exam Respiratory Exam: Clear to Auscultation Bilateral, NORMAL BREATHING PATTERN. absent: Rhonchi, Wheezes, Respiratory Distress - Cardiovascular Exam Cardiovascular Exam: REGULAR RHYTHM, +S1, +S2 - GI/Abdominal Exam GI & Abdominal Exam: Normal Bowel Sounds, Soft. absent: Distended, Firm, Guarding, Hernia, Organomegaly, Rebound, Rigid - Extremities Exam Extremities exam: Negative for: joint swelling, pedal edema - Neurological Exam Neurological exam: Alert, Oriented x3 - Psychiatric Exam Psychiatric exam: Normal Affect, Normal Mood - Skin Skin Exam: Dry, Intact, Normal Color, Warm Results - Vital Signs Recent Vital Signs: Last Vital Signs Temp 97.8 F 01/23/18 06:00 Pulse 81 01/23/18 09:20 Resp 20 01/23/18 06:00 BP 150/79 01/23/18 09:20 Pulse Ox 100 01/23/18 06:00 - Labs Result Diagrams: 01/23/18 06:30 01/23/18 06:30 Labs: Laboratory Results - last 24 hr 01/22/18 01/23/18 01/23/18 14:20 06:30 06:30 WBC 12.6 H RBC 3.64 Hgb 11.0 L Hct 33.9 L MCV 93.1 MCH 30.2 MCHC 32.4 RDW 14.2 Plt Count 389 MPV 8.8 Sodium 143 Potassium 5.3 H Chloride 105 Carbon Dioxide 30 Anion Gap 14 BUN 20 Creatinine 0.7 Est GFR ( Amer) > 60 Est GFR (Non-Af Amer) > 60 Random Glucose 129 H Calcium 8.9 Phosphorus 3.4 Magnesium 2.7 H Total Bilirubin 0.5 AST 43 H ALT 53 Alkaline Phosphatase 92 Total Protein 6.3 Albumin 2.9 L Globulin 3.4 Albumin/Globulin Ratio 0.9 L Ur L.pneumophila Ag Negative Assessment & Plan - Assessment and Plan (Free Text) Assessment: Sylvia Corrigan is a 82F w/ hx of COPD, HTN, Asthma and pneumonia is admitted for recurrent pneumonia and abd pain. Found to have cholecystitis and elevated T. Sarahy (now normal w/ CBD of 2.7mm) Acute Cholecystitis Elevated T. Sarahy Pneumonia Plan: -no indication of retained stone in the CBD -imaging indicates acute cholecystitis -continue abx -lap evelyn as per surgery -no Gi intervention indicated at this time -advance diet -recommend screening colonscopy as oupt D/W Dr. Juárez <Arcadio Juárez - Last Filed: 01/23/18 10:19> Meds - Medications Medications: Current Medications Albuterol/Ipratropium (Duoneb 3 Mg/0.5 Mg (3 Ml) Ud) 3 ml IH Q2H PRN PRN Reason: Shortness of Breath Last Admin: 01/21/18 04:26 Dose: 3 ml Albuterol/Ipratropium (Duoneb 3 Mg/0.5 Mg (3 Ml) Ud) 3 ml IH [id number] [facility] Last Admin: 01/23/18 08:17 Dose: 3 ml Benzonatate (Tessalon Perles) 100 mg PO TID [facility] Last Admin: 01/23/18 09:20 Dose: 100 mg Doxycycline Hyclate (Doryx) 100 mg PO Q12 [facility] PRN Reason: Protocol Last Admin: 01/23/18 09:20 Dose: 100 mg Enoxaparin Sodium (Lovenox) 30 mg SC DAILY [facility] PRN Reason: Protocol Last Admin: 01/23/18 09:20 Dose: 30 mg Lisinopril (Zestril) 5 mg PO DAILY [facility] Last Admin: 01/23/18 09:20 Dose: 5 mg Methylprednisolone (Solu-Medrol) 40 mg IVP Q8 [facility] Last Admin: 01/23/18 05:27 Dose: 40 mg Montelukast Sodium (Singulair) 10 mg PO DAILY [facility] Last Admin: 01/23/18 09:20 Dose: 10 mg Multi-Ingredient Cream (Hydrocerin Cream) 0 ea TOP DAILY [facility] Last Admin: 01/22/18 10:38 Dose: 1 apful Pantoprazole Sodium (Protonix Ec Tab) 40 mg PO 0600 [facility] Last Admin: 01/23/18 05:28 Dose: Not Given Roflumilast (Daliresp) 500 mcg PO DAILY [facility] Last Admin: 01/23/18 09:20 Dose: 500 mcg Timolol Maleate (Timoptic 0.5% Ophth Soln) 1 drop OU HS [facility] Last Admin: 01/22/18 21:58 Dose: 1 unit Results - Vital Signs Recent Vital Signs: Last Vital Signs Temp 97.8 F 01/23/18 06:00 Pulse 81 01/23/18 09:20 Resp 20 01/23/18 06:00 BP 150/79 01/23/18 09:20 Pulse Ox 100 01/23/18 06:00 - Labs Result Diagrams: 01/23/18 06:30 01/23/18 06:30 Labs: Laboratory Results - last 24 hr 01/22/18 01/23/18 01/23/18 14:20 06:30 06:30 WBC 12.6 H RBC 3.64 Hgb 11.0 L Hct 33.9 L MCV 93.1 MCH 30.2 MCHC 32.4 RDW 14.2 Plt Count 389 MPV 8.8 Sodium 143 Potassium 5.3 H Chloride 105 Carbon Dioxide 30 Anion Gap 14 BUN 20 Creatinine 0.7 Est GFR ( Amer) > 60 Est GFR (Non-Af Amer) > 60 Random Glucose 129 H Calcium 8.9 Phosphorus 3.4 Magnesium 2.7 H Total Bilirubin 0.5 AST 43 H ALT 53 Alkaline Phosphatase 92 Total Protein 6.3 Albumin 2.9 L Globulin 3.4 Albumin/Globulin Ratio 0.9 L Ur L.pneumophila Ag Negative Attending/Attestation - Attestation I have personally seen and examined this patient.: Yes I have fully participated in the care of the patient.: Yes I have reviewed all pertinent clinical information: Yes Notes (Text): 01/23/18 10:14 I have seen and examined patient. Agree with above documentation with the following additions. In brief, this is an 82 year old female with history of COPD, HTN, asthma, who was admitted to hospital with complaint of abdominal pain. During hospital course she was diagnosed with acute cholecystitis and also treated for pneumonia. GI called for hyperbilirubinemia. She is currently seen resting in bed, appears comfortable. She denies abdominal pain, nausea, vomiting, diarrhea, fever/chills, weight loss, or change in bowel habits. No prior endoscopic evaluation. Review of vitals from today are normal. COPD HTN Asthma, pneumonia Abdominal pain - acute cholecystitis Abdominal US reviewed by me showing normal caliber CBD, cholelithiasis - Diet as tolerated - Continue with antibiotic therapy - Bilirubin and alk phos have returned to normal, continue to monitor LFTs. No clinical or laboratory suggestion of retained cbd stone. - Follow up surgical recommendations regarding potential cholecystectomy - No planned GI interventions, will sign off case. Please reconsult as necessary, thank you.
--- NOTE | 2018-01-23 10:16 | CP.PCM.PN ---
Subjective - Date & Time of Evaluation Date of Evaluation: 01/23/18 Time of Evaluation: 10:14 - Subjective Subjective: Surgery Pt seen and examined. No acute events overnight. Denies cough, SOB, CP, fevers, abd pain, nausea. Tolerating diet. Objective - Vital Signs/Intake and Output Vital Signs (last 24 hours): Temp Pulse Resp BP Pulse Ox 97.8 F 81 20 150/79 100 01/23/18 06:00 01/23/18 09:20 01/23/18 06:00 01/23/18 09:20 01/23/18 06:00 Intake and Output: 01/23/18 01/23/18 06:59 18:59 Intake Total 120 Output Total 0 Balance 120 - Medications Medications: Current Medications Albuterol/Ipratropium (Duoneb 3 Mg/0.5 Mg (3 Ml) Ud) 3 ml IH Q2H PRN PRN Reason: Shortness of Breath Last Admin: 01/21/18 04:26 Dose: 3 ml Albuterol/Ipratropium (Duoneb 3 Mg/0.5 Mg (3 Ml) Ud) 3 ml IH [id number] [facility] Last Admin: 01/23/18 08:17 Dose: 3 ml Benzonatate (Tessalon Perles) 100 mg PO TID [facility] Last Admin: 01/23/18 09:20 Dose: 100 mg Doxycycline Hyclate (Doryx) 100 mg PO Q12 [facility] PRN Reason: Protocol Last Admin: 01/23/18 09:20 Dose: 100 mg Enoxaparin Sodium (Lovenox) 30 mg SC DAILY [facility] PRN Reason: Protocol Last Admin: 01/23/18 09:20 Dose: 30 mg Lisinopril (Zestril) 5 mg PO DAILY [facility] Last Admin: 01/23/18 09:20 Dose: 5 mg Methylprednisolone (Solu-Medrol) 40 mg IVP Q8 [facility] Last Admin: 01/23/18 05:27 Dose: 40 mg Montelukast Sodium (Singulair) 10 mg PO DAILY [facility] Last Admin: 01/23/18 09:20 Dose: 10 mg Multi-Ingredient Cream (Hydrocerin Cream) 0 ea TOP DAILY [facility] Last Admin: 01/22/18 10:38 Dose: 1 apful Pantoprazole Sodium (Protonix Ec Tab) 40 mg PO 0600 [facility] Last Admin: 01/23/18 05:28 Dose: Not Given Roflumilast (Daliresp) 500 mcg PO DAILY [facility] Last Admin: 01/23/18 09:20 Dose: 500 mcg Timolol Maleate (Timoptic 0.5% Ophth Soln) 1 drop OU HS [facility] Last Admin: 01/22/18 21:58 Dose: 1 unit - Labs Labs: 01/23/18 06:30 01/23/18 06:30 PT 14.5 SECONDS (9.4-12.5) H 01/19/18 18:30 INR 1.27 (0.93-1.08) H 01/19/18 18:30 APTT 32.2 Seconds (25.1-36.5) 01/19/18 18:30 - Constitutional Appears: No Acute Distress - Head Exam Head Exam: ATRAUMATIC, NORMAL INSPECTION, NORMOCEPHALIC - Eye Exam Eye Exam: EOMI, Normal appearance, PERRL Pupil Exam: NORMAL ACCOMODATION, PERRL - ENT Exam ENT Exam: Mucous Membranes Moist, Normal Exam - Neck Exam Neck Exam: Full ROM, Normal Inspection. absent: Lymphadenopathy - Respiratory Exam Respiratory Exam: Clear to Ausculation Bilateral, NORMAL BREATHING PATTERN - Cardiovascular Exam Cardiovascular Exam: REGULAR RHYTHM, +S1, +S2. absent: Murmur - GI/Abdominal Exam GI & Abdominal Exam: Soft, Normal Bowel Sounds. absent: Distended, Firm, Guarding, Rigid, Tenderness - Extremities Exam Extremities Exam: Full ROM, Normal Capillary Refill, Normal Inspection. absent : Joint Swelling, Pedal Edema - Back Exam Back Exam: NORMAL INSPECTION - Neurological Exam Neurological Exam: Alert, Awake, CN II-XII Intact, Normal Gait, Oriented x3 - Psychiatric Exam Psychiatric exam: Normal Affect, Normal Mood - Skin Skin Exam: Dry, Intact, Normal Color, Warm Assessment and Plan - Assessment and Plan (Free Text) Assessment: 82 F cholelithiasis v cholecystitis : currently asymptomatic. Pt wants to avoid surgery if possible. CT chest shows patchy infiltrate US: gallstones, GB wall 4.5 mm, CBD 2mm. Yin sign suspicious for cholecystitis WBC 15->12 and Tbili was 3 wnl now. Plan: f/u HIDA Will monitor Possible elective outpatient surgery after pneumonia resolved if patient continues to be asymptomatic and reluctant for surgery Possible Inpatient surgery after pneumonia resolved if GB symptoms get worsen ABX Will DW with Dr. Bhandari
[2018-01-23] MEDS: Hydrocerin(120 gm) TOP SCH (10:27)
--- NOTE | 2018-01-23 14:35 | CP.PCM.PN ---
<Frederic Abebe - Last Filed: 01/23/18 15:09> Subjective - Date & Time of Evaluation Date of Evaluation: 01/23/18 Time of Evaluation: 14:30 - Subjective Subjective: Medicine Progress Note: Patient seen and assessed at bedside. No acute events overnight. Patient had HIDA done this morning and NPO after midnight. She denies any complaints including fever, chills, headache, chest pain, SOB, cough, abdominal pain, N/V/D /C, urinary changes, skin changes, or any numbness/tingling/weakness of any extremity. Objective - Vital Signs/Intake and Output Vital Signs (last 24 hours): Temp Pulse Resp BP Pulse Ox 97.8 F 81 20 150/79 100 01/23/18 06:00 01/23/18 10:00 01/23/18 06:00 01/23/18 09:20 01/23/18 06:00 Intake and Output: 01/23/18 01/23/18 06:59 18:59 Intake Total 120 Output Total 0 Balance 120 - Medications Medications: Current Medications Albuterol/Ipratropium (Duoneb 3 Mg/0.5 Mg (3 Ml) Ud) 3 ml IH Q2H PRN PRN Reason: Shortness of Breath Last Admin: 01/21/18 04:26 Dose: 3 ml Albuterol/Ipratropium (Duoneb 3 Mg/0.5 Mg (3 Ml) Ud) 3 ml IH [id number] [facility] Last Admin: 01/23/18 13:31 Dose: 3 ml Benzonatate (Tessalon Perles) 100 mg PO TID [facility] Last Admin: 01/23/18 14:20 Dose: 100 mg Doxycycline Hyclate (Doryx) 100 mg PO Q12 [facility] PRN Reason: Protocol Last Admin: 01/23/18 09:20 Dose: 100 mg Enoxaparin Sodium (Lovenox) 30 mg SC DAILY [facility] PRN Reason: Protocol Last Admin: 01/23/18 09:20 Dose: 30 mg Lisinopril (Zestril) 5 mg PO DAILY [facility] Last Admin: 01/23/18 09:20 Dose: 5 mg Methylprednisolone (Solu-Medrol) 40 mg IVP Q8 [facility] Last Admin: 01/23/18 14:21 Dose: 40 mg Montelukast Sodium (Singulair) 10 mg PO DAILY [facility] Last Admin: 01/23/18 09:20 Dose: 10 mg Multi-Ingredient Cream (Hydrocerin Cream) 0 ea TOP DAILY [facility] Last Admin: 01/23/18 10:27 Dose: 1 apful Pantoprazole Sodium (Protonix Ec Tab) 40 mg PO 0600 [facility] Last Admin: 01/23/18 05:28 Dose: Not Given Roflumilast (Daliresp) 500 mcg PO DAILY [facility] Last Admin: 01/23/18 09:20 Dose: 500 mcg Timolol Maleate (Timoptic 0.5% Ophth Soln) 1 drop OU HS [facility] Last Admin: 01/22/18 21:58 Dose: 1 unit - Labs Labs: 01/23/18 06:30 01/23/18 06:30 PT 14.5 SECONDS (9.4-12.5) H 01/19/18 18:30 INR 1.27 (0.93-1.08) H 01/19/18 18:30 APTT 32.2 Seconds (25.1-36.5) 01/19/18 18:30 - Constitutional Appears: Non-toxic, No Acute Distress - Head Exam Head Exam: ATRAUMATIC, NORMOCEPHALIC - Eye Exam Eye Exam: EOMI, Normal appearance Pupil Exam: NORMAL ACCOMODATION, PERRL - ENT Exam ENT Exam: Mucous Membranes Moist, Normal Exam - Neck Exam Neck Exam: Full ROM, Normal Inspection - Respiratory Exam Respiratory Exam: Wheezes (Trace, end expiratory), NORMAL BREATHING PATTERN. absent: Accessory Muscle Use, Chest Wall Tenderness, Decreased Breath Sounds, Clear to Ausculation Bilateral, Prolonged Expiratory Phase, Rales, Rhonchi, Respiratory Distress, Stridor - Cardiovascular Exam Cardiovascular Exam: REGULAR RHYTHM - GI/Abdominal Exam GI & Abdominal Exam: Soft, Normal Bowel Sounds. absent: Tenderness - Extremities Exam Extremities Exam: Full ROM, Normal Capillary Refill, Normal Inspection. absent : Calf Tenderness, Joint Swelling, Pedal Edema, Tenderness - Back Exam Back Exam: NORMAL INSPECTION - Neurological Exam Neurological Exam: Alert, Awake, CN II-XII Intact, Oriented x3 - Psychiatric Exam Psychiatric exam: Normal Affect, Normal Mood - Skin Skin Exam: Dry, Intact, Normal Color, Warm Assessment and Plan - Assessment and Plan (Free Text) Assessment: 82 year old female with a past medical history significant for asthma, glaucoma and HTN admitted for evaluation and treatment for community acquired pneumonia. Patient was found to have transaminitis and subsequently cholelithiasis with cholecystitis on RUQ U/S. Plan: 1. Community Acquired Pneumonia -CT chest showed patchy scattered areas of groundglass opacity, consolidation, nodular infiltrates bilaterally, with consolidation most prominently in the right mid lung, and without pleural effusion -Chest X-Ray showed right lower lobe pneumonia -Blood and sputum cultures negative -Influenza and Legionella negative -Improving leukocytosis without fevers, tachycardia or tachypnea -Continue Doxycycline 100mg PO Q12 -Continue IV Solu-Medrol 40mg Q8 -Continue scheduled and as needed Duonebs -Continue Tesshanteon Shanell Hagen (home) and Daliresp -ID and Pulmonology consulted, all recommendations appreciated 2. Cholelithiasis -HIDA pending -Gallbladder U/S showed cholelithiasis with presumptive findings of cholecystitis -Liver enzymes elevated but downtrending -No acute surgical intervention indicated at this time -Patient to have cholecystectomy as an outpatient -Surgery consulted, all recommendations appreciated 3. Elevated BNP -BNP mildly elevated at 1520 -Echo showed LVEF of 60%, mild TR, and mild pHTN -Three serial troponins negative -Cardiology consulted, all recommendations appreciated 4. History of HTN -Continue home Zestril 5. History of Glaucoma -Continue home Timolol ophthalmic solution GI Prophylaxis: Protonix DVT Prophylaxis: Lovenox Patient seen and case discussed with attending, Dr. Zepeda. <Parris Zepeda - Last Filed: 01/23/18 17:40> Objective - Vital Signs/Intake and Output Vital Signs (last 24 hours): Temp Pulse Resp BP Pulse Ox 97.8 F 91 H 20 150/79 100 01/23/18 06:00 01/23/18 14:00 01/23/18 06:00 01/23/18 09:20 01/23/18 06:00 Intake and Output: 01/23/18 01/23/18 06:59 18:59 Intake Total 120 540 Output Total 0 3 Balance 120 537 - Medications Medications: Current Medications Albuterol/Ipratropium (Duoneb 3 Mg/0.5 Mg (3 Ml) Ud) 3 ml IH Q2H PRN PRN Reason: Shortness of Breath Last Admin: 01/21/18 04:26 Dose: 3 ml Albuterol/Ipratropium (Duoneb 3 Mg/0.5 Mg (3 Ml) Ud) 3 ml IH [id number] [facility] Last Admin: 01/23/18 13:31 Dose: 3 ml Benzonatate (Tessalon Perles) 100 mg PO TID [facility] Last Admin: 01/23/18 14:20 Dose: 100 mg Doxycycline Hyclate (Doryx) 100 mg PO Q12 [facility] PRN Reason: Protocol Last Admin: 01/23/18 09:20 Dose: 100 mg Enoxaparin Sodium (Lovenox) 30 mg SC DAILY [facility] PRN Reason: Protocol Last Admin: 01/23/18 09:20 Dose: 30 mg Lisinopril (Zestril) 5 mg PO DAILY [facility] Last Admin: 01/23/18 09:20 Dose: 5 mg Methylprednisolone (Solu-Medrol) 40 mg IVP Q8 [facility] Last Admin: 01/23/18 14:21 Dose: 40 mg Montelukast Sodium (Singulair) 10 mg PO DAILY [facility] Last Admin: 01/23/18 09:20 Dose: 10 mg Multi-Ingredient Cream (Hydrocerin Cream) 0 ea TOP DAILY [facility] Last Admin: 01/23/18 10:27 Dose: 1 apful Pantoprazole Sodium (Protonix Ec Tab) 40 mg PO 0600 [facility] Last Admin: 01/23/18 05:28 Dose: Not Given Roflumilast (Daliresp) 500 mcg PO DAILY [facility] Last Admin: 01/23/18 09:20 Dose: 500 mcg Timolol Maleate (Timoptic 0.5% [facility]) 1 drop OU HS [facility] Last Admin: 01/22/18 21:58 Dose: 1 unit - Labs Labs: 01/23/18 06:30 01/23/18 06:30 PT 14.5 SECONDS (9.4-12.5) H 01/19/18 18:30 INR 1.27 (0.93-1.08) H 01/19/18 18:30 APTT 32.2 Seconds (25.1-36.5) 01/19/18 18:30 Attending/Attestation - Attestation I have personally seen and examined this patient.: Yes I have fully participated in the care of the patient.: Yes I have reviewed all pertinent clinical information, including history, physical exam and plan: Yes Notes (Text): 01/23/18 17:37 Attending note; Patient seen and examined with resident. Patient is a 82 year old female with history of asthma, glaucoma, hypertension, beryllium exposure, history of multiple episodes of pneumonia in the past with the last one being 2 years ago who was brought by the daughter for evaluation of persistent cough, fever and found to have right lower lobe pneumonia. Patient is currently afebrile and nontoxic. ID evaluation appreciated. Currently on doxycycline. Pulmonary consult appreciated. Upon admission, patient complained of mild abdominal pain and had mild RUQ tenderness. Transaminitis was also noted. US GB revealed acute cholecystitis however she does not appear to be in pain. Tolerating regular diet. HIDA scan is negative. Surgery evaluation appreciated. Needs outpatient follow- up. PT evaluation appreciated. Possible discharge home tomorrow if clinically stable with close follow-up with pulmonary/surgery. Upon discharge patient will follow up with Dr Infante.
--- NOTE | 2018-01-23 16:06 | NM ---
PROCEDURE: Nuclear Medicine Hepatobiliary Scan HISTORY: r/o cholecystitis COMPARISON: January 20, 2018 ultrasound right upper quadrant. TECHNIQUE: 5.2 mCi of technetium 99m Mebrofenin was administered intravenously. Planar images of the abdomen were obtained at 5 min intervals to 60 mins. Delayed images were also obtained. FINDINGS: LIVER: Timely and heterogeneous uptake. COMMON BILE DUCT: identified at 15 mins. GALLBLADDER: identified at 15 mins. SMALL BOWEL: Identified at 15 mins. IMPRESSION: Normal Hepatobiliary Scan. The cystic duct is patent.
--- NOTE | 2018-01-23 17:31 | CP.PCM.PN ---
Subjective - Date & Time of Evaluation Date of Evaluation: 01/23/18 Time of Evaluation: 09:00 - Subjective Subjective: Feeling much better, much improved cough and breathing, no fevers. Objective - Vital Signs/Intake and Output Vital Signs (last 24 hours): Temp Pulse Resp BP Pulse Ox 97.8 F 91 H 20 150/79 100 01/23/18 06:00 01/23/18 14:00 01/23/18 06:00 01/23/18 09:20 01/23/18 06:00 Intake and Output: 01/23/18 01/23/18 06:59 18:59 Intake Total 120 540 Output Total 0 3 Balance 120 537 - Medications Medications: Current Medications Albuterol/Ipratropium (Duoneb 3 Mg/0.5 Mg (3 Ml) Ud) 3 ml IH Q2H PRN PRN Reason: Shortness of Breath Last Admin: 01/21/18 04:26 Dose: 3 ml Albuterol/Ipratropium (Duoneb 3 Mg/0.5 Mg (3 Ml) Ud) 3 ml IH [id number] [facility] Last Admin: 01/23/18 13:31 Dose: 3 ml Benzonatate (Tessalon Perles) 100 mg PO TID [facility] Last Admin: 01/23/18 14:20 Dose: 100 mg Doxycycline Hyclate (Doryx) 100 mg PO Q12 [facility] PRN Reason: Protocol Last Admin: 01/23/18 09:20 Dose: 100 mg Enoxaparin Sodium (Lovenox) 30 mg SC DAILY [facility] PRN Reason: Protocol Last Admin: 01/23/18 09:20 Dose: 30 mg Lisinopril (Zestril) 5 mg PO DAILY [facility] Last Admin: 01/23/18 09:20 Dose: 5 mg Methylprednisolone (Solu-Medrol) 40 mg IVP Q8 [facility] Last Admin: 01/23/18 14:21 Dose: 40 mg Montelukast Sodium (Singulair) 10 mg PO DAILY [facility] Last Admin: 01/23/18 09:20 Dose: 10 mg Multi-Ingredient Cream (Hydrocerin Cream) 0 ea TOP DAILY [facility] Last Admin: 01/23/18 10:27 Dose: 1 apful Pantoprazole Sodium (Protonix Ec Tab) 40 mg PO 0600 [facility] Last Admin: 01/23/18 05:28 Dose: Not Given Roflumilast (Daliresp) 500 mcg PO DAILY [facility] Last Admin: 01/23/18 09:20 Dose: 500 mcg Timolol Maleate (Timoptic 0.5% Ophth Soln) 1 drop OU HS [facility] Last Admin: 01/22/18 21:58 Dose: 1 unit - Labs Labs: 01/23/18 06:30 01/23/18 06:30 PT 14.5 SECONDS (9.4-12.5) H 01/19/18 18:30 INR 1.27 (0.93-1.08) H 01/19/18 18:30 APTT 32.2 Seconds (25.1-36.5) 01/19/18 18:30 - Constitutional Appears: Chronically Ill - Head Exam Head Exam: NORMAL INSPECTION - Neck Exam Neck Exam: absent: Meningismus - Respiratory Exam Respiratory Exam: Decreased Breath Sounds - Cardiovascular Exam Cardiovascular Exam: +S1, +S2 - GI/Abdominal Exam GI & Abdominal Exam: Soft. absent: Tenderness Assessment and Plan - Assessment and Plan (Free Text) Plan: Assessment Consider sepsis due to multifocal HCAP, clinically improving asthma HTN glaucoma S/P right ankle fracture S/P ORIF cataracts Plan continue doxycycline day 4 to complete 7 days of therapy
--- NOTE | 2018-01-23 19:28 | CARD ---
APPROVED REPORT EKG Measurement Heart [id number] <Conclusion> Normal sinus rhythm Normal ECG
--- NOTE | 2018-01-23 19:57 | PN ---
DATE: 01/23/2018 PULMONARY PROGRESS NOTE REFERRING PHYSICIAN: Neymar Fragoso MD. SUBJECTIVE: She is lying in the bed, feels a little better. Wheezing and cough are improved. No nausea. No vomiting, diarrhea, leg pain, leg swelling. OBJECTIVE: GENERAL: In no acute distress. VITAL SIGNS: Temp is 98, heart rate is 91, respiratory rate is 20, blood pressure 150/79, pulse ox 100% on 2 L nasal cannula. HEENT: Moist mucous membrane. Crowded airway. NECK: Supple. No JVD. LUNGS: Have a few crackles, bilateral expiratory wheezing. HEART: S1 and S2. ABDOMEN: Soft, nontender. No organomegaly. EXTREMITIES: There is no edema. NEUROLOGICAL: Sleepy, arousable. Follows simple command. LABORATORY DATA: Shows hemoglobin 11, hematocrit 33.9, WBC 12.6, platelet is 389. Sodium 143, potassium 5.3, chloride 105, bicarbonate 20, BUN 20, creatinine 0.7, glucose 129, calcium is 8.9, phosphorus 3.4, magnesium is 2.9. AST 43, ALT 53, alk phos is 92, albumin is 2.9. Microbiology: Blood culture, urine culture, sputum culture. So far, there is no growth. Has a nuclear scan done today shows normal hepatobiliary scan. The cystic duct is patent. MEDICATIONS: She is on Daliresp 500 mcg daily, doxycycline 100 mg twice a day, DuoNeb every 2 hours p.r.n. and every 6 hours [id number], Lovenox 30 mg subcu daily, Protonix 40 mg daily, Singulair 10 mg daily, Solu-Medrol 40 mg IV q. 8 hours, Tessalon Perles 100 mg three times a day, Zestril 5 mg daily. IMPRESSION AND PLAN: Berylliosis with chronic obstructive lung disease, pneumonitis and fibrosis, pulmonary hypertension, pneumonia. Pulmonary point of view, she is a little improved compared to yesterday. We will continue high-dose of steroids, antibiotics, inhaled bronchodilator. We will need full pulmonary function test and sleep study upon discharge as outpatient. Thank you and we will follow with you. Joaquim Iyer MD cc:
--- NOTE | 2018-01-23 21:24 | CP.PCM.PCO ---
Physician Communication Note - Physician Communication Note Physician Communication Note: HIDA neg for acute evelyn, ADAT, no surgical intervention at this time
[2018-01-24] MEDS: Albuterol-Ipratrop 3 mg / 0.5 (3 ml) UD IH SCH ×3 (02:02→13:28)
[2018-01-24] MEDS: Pantoprazole 40 mg EC Tab PO SCH (06:41)
[2018-01-24] MEDS: MethylPREDNISolone 40 mg Vial IVP SCH ×2 (06:42→15:01)
[2018-01-24 06:52] LABS: HEMOGLOBIN 10.5 g/dL (12.0-16.0); MEAN CELL VOLUME 93.2 fl (80.0-105.0); MEAN CORPUSCULAR HEMOGLOBIN 29.7 pg (25.0-35.0); MEAN CORPUSCULAR HGB CONC 31.8 g/dl (31.0-37.0); RBC 3.54 10^6/uL (3.5-6.1); RED CELL DISTRIBUTION WIDTH 14.1 % (11.5-14.5); WHITE BLOOD COUNT 11.1 10^3/ul (4.5-11.0)
[2018-01-24 07:19] LABS: ALB/GLOB RATIO 0.9 (1.1-1.8); ALBUMIN 2.7 g/dL (3.0-4.8); ALT/SGPT 49 U/L (7-56); AST/SGOT 40 U/L (14-36); BLOOD UREA NITROGEN 20 mg/dL (7-21); CALCIUM 8.8 mg/dL (8.4-10.5); GFR AFRICAN-AMERICAN > 60; GFR NON-AFRICAN AMERICAN > 60
[2018-01-24] MEDS: Hydrocerin(120 gm) TOP SCH (10:23)
[2018-01-24] MEDS: Enoxaparin 30 mg Syringe SC SCH (10:23)
--- NOTE | 2018-01-24 12:24 | CP.PCM.PN ---
Subjective - Date & Time of Evaluation Date of Evaluation: 01/24/18 Time of Evaluation: 10:40 - Subjective Subjective: Breathing better, no fevers, not in distress. Cough is improved as well. Objective - Vital Signs/Intake and Output Vital Signs (last 24 hours): Temp Pulse Resp BP Pulse Ox 97.6 F 75 19 134/75 96 01/24/18 06:00 01/24/18 06:00 01/24/18 06:00 01/24/18 06:00 01/24/18 00:01 Intake and Output: 01/24/18 01/24/18 06:59 18:59 Intake Total 300 Balance 300 - Medications Medications: Current Medications Albuterol/Ipratropium (Duoneb 3 Mg/0.5 Mg (3 Ml) Ud) 3 ml IH Q2H PRN PRN Reason: Shortness of Breath Last Admin: 01/21/18 04:26 Dose: 3 ml Albuterol/Ipratropium (Duoneb 3 Mg/0.5 Mg (3 Ml) Ud) 3 ml IH [id number] [facility] Last Admin: 01/24/18 07:47 Dose: 3 ml Benzonatate (Tessalon Perles) 100 mg PO TID [facility] Last Admin: 01/23/18 18:48 Dose: 100 mg Doxycycline Hyclate (Doryx) 100 mg PO Q12 [facility] PRN Reason: Protocol Last Admin: 01/23/18 22:24 Dose: 100 mg Enoxaparin Sodium (Lovenox) 30 mg SC DAILY [facility] PRN Reason: Protocol Last Admin: 01/23/18 09:20 Dose: 30 mg Lisinopril (Zestril) 5 mg PO DAILY [facility] Last Admin: 01/23/18 09:20 Dose: 5 mg Methylprednisolone (Solu-Medrol) 40 mg IVP Q8 [facility] Last Admin: 01/24/18 06:42 Dose: 40 mg Montelukast Sodium (Singulair) 10 mg PO DAILY [facility] Last Admin: 01/23/18 09:20 Dose: 10 mg Multi-Ingredient Cream (Hydrocerin Cream) 0 ea TOP DAILY [facility] Last Admin: 01/23/18 10:27 Dose: 1 apful Pantoprazole Sodium (Protonix Ec Tab) 40 mg PO 0600 [facility] Last Admin: 01/24/18 06:41 Dose: 40 mg Roflumilast (Daliresp) 500 mcg PO DAILY [facility] Last Admin: 01/23/18 09:20 Dose: 500 mcg Timolol Maleate (Timoptic 0.5% Ophth Soln) 1 drop OU HS [facility] Last Admin: 01/23/18 22:26 Dose: 1 unit - Labs Labs: 01/24/18 06:15 01/24/18 06:15 PT 14.5 SECONDS (9.4-12.5) H 01/19/18 18:30 INR 1.27 (0.93-1.08) H 01/19/18 18:30 APTT 32.2 Seconds (25.1-36.5) 01/19/18 18:30 - Constitutional Appears: Non-toxic, Chronically Ill - Head Exam Head Exam: NORMAL INSPECTION - ENT Exam ENT Exam: Mucous Membranes Moist - Neck Exam Neck Exam: absent: Meningismus - Respiratory Exam Respiratory Exam: Decreased Breath Sounds - Cardiovascular Exam Cardiovascular Exam: +S1, +S2 - GI/Abdominal Exam GI & Abdominal Exam: Soft. absent: Tenderness Assessment and Plan - Assessment and Plan (Free Text) Plan: Assessment Consider sepsis due to multifocal HCAP, clinically improving asthma HTN glaucoma S/P right ankle fracture S/P ORIF cataracts Plan continue doxycycline day 5 to complete 7 days of therapy
--- NOTE | 2018-01-24 14:40 | CP.PCM.PN ---
<Frederic Abebe - Last Filed: 01/24/18 14:36> Subjective - Date & Time of Evaluation Date of Evaluation: 01/24/18 Time of Evaluation: 14:36 - Subjective Subjective: Medicine Progress Note: Patient seen and assessed at bedside. No acute events overnight. Patient reports that she would like to be advanced to a regular consistency diet at this time. She denies any complaints including fever, chills, headache, chest pain, SOB, cough, abdominal pain, N/V/D/C, urinary changes, skin changes, or any numbness/tingling/weakness of any extremity. Objective - Vital Signs/Intake and Output Vital Signs (last 24 hours): Temp Pulse Resp BP Pulse Ox 97.5 F L 84 20 159/92 H 96 01/24/18 12:00 01/24/18 12:00 01/24/18 12:00 01/24/18 12:00 01/24/18 00:01 Intake and Output: 01/24/18 01/24/18 06:59 18:59 Intake Total 300 Balance 300 - Medications Medications: Current Medications Albuterol/Ipratropium (Duoneb 3 Mg/0.5 Mg (3 Ml) Ud) 3 ml IH Q2H PRN PRN Reason: Shortness of Breath Last Admin: 01/21/18 04:26 Dose: 3 ml Albuterol/Ipratropium (Duoneb 3 Mg/0.5 Mg (3 Ml) Ud) 3 ml IH [id number] [facility] Last Admin: 01/24/18 13:28 Dose: 3 ml Benzonatate (Tessalon Perles) 100 mg PO TID [facility] Last Admin: 01/24/18 10:22 Dose: 100 mg Doxycycline Hyclate (Doryx) 100 mg PO Q12 [facility] PRN Reason: Protocol Last Admin: 01/24/18 10:22 Dose: 100 mg Enoxaparin Sodium (Lovenox) 30 mg SC DAILY [facility] PRN Reason: Protocol Last Admin: 01/24/18 10:23 Dose: 30 mg Lisinopril (Zestril) 5 mg PO DAILY [facility] Last Admin: 01/24/18 10:22 Dose: 5 mg Methylprednisolone (Solu-Medrol) 40 mg IVP Q8 [facility] Last Admin: 01/24/18 06:42 Dose: 40 mg Montelukast Sodium (Singulair) 10 mg PO DAILY [facility] Last Admin: 01/24/18 10:22 Dose: 10 mg Multi-Ingredient Cream (Hydrocerin Cream) 0 ea TOP DAILY [facility] Last Admin: 01/24/18 10:23 Dose: 1 apful Pantoprazole Sodium (Protonix Ec Tab) 40 mg PO 0600 [facility] Last Admin: 01/24/18 06:41 Dose: 40 mg Roflumilast (Daliresp) 500 mcg PO DAILY [facility] Last Admin: 01/24/18 10:22 Dose: 500 mcg Timolol Maleate (Timoptic 0.5% Ophth Soln) 1 drop OU HS [facility] Last Admin: 01/23/18 22:26 Dose: 1 unit - Labs Labs: 01/24/18 06:15 01/24/18 06:15 PT 14.5 SECONDS (9.4-12.5) H 01/19/18 18:30 INR 1.27 (0.93-1.08) H 01/19/18 18:30 APTT 32.2 Seconds (25.1-36.5) 01/19/18 18:30 - Constitutional Appears: Non-toxic, No Acute Distress - Head Exam Head Exam: ATRAUMATIC, NORMOCEPHALIC - Eye Exam Eye Exam: EOMI, Normal appearance Pupil Exam: NORMAL ACCOMODATION, PERRL - ENT Exam ENT Exam: Mucous Membranes Moist, Normal Exam - Neck Exam Neck Exam: Full ROM, Normal Inspection. absent: Lymphadenopathy, Tenderness - Respiratory Exam Respiratory Exam: Wheezes (Trace, scattered, end expiratory), NORMAL BREATHING PATTERN. absent: Accessory Muscle Use, Chest Wall Tenderness, Decreased Breath Sounds, Clear to Ausculation Bilateral, Prolonged Expiratory Phase, Rales, Rhonchi, Respiratory Distress, Stridor - Cardiovascular Exam Cardiovascular Exam: REGULAR RHYTHM, RRR, +S1, +S2. absent: Bradycardia, Tachycardia, Clicks, Diastolic murmur, Gallop, Irregular Rhythm, JVD, Rubs, +S4 , Murmur - GI/Abdominal Exam GI & Abdominal Exam: Soft, Normal Bowel Sounds. absent: Distended, Firm, Guarding, Tenderness, Rebound - Extremities Exam Extremities Exam: Full ROM, Normal Capillary Refill, Normal Inspection. absent : Calf Tenderness, Joint Swelling, Pedal Edema, Tenderness - Back Exam Back Exam: NORMAL INSPECTION - Neurological Exam Neurological Exam: Alert, Awake, CN II-XII Intact, Normal Gait, Oriented x3 - Psychiatric Exam Psychiatric exam: Normal Affect, Normal Mood - Skin Skin Exam: Dry, Intact, Normal Color, Warm Assessment and Plan - Assessment and Plan (Free Text) Assessment: 82 year old female with a past medical history significant for asthma, glaucoma and HTN admitted for evaluation and treatment for multifocal HAP. Patient was found to have transaminitis and subsequently cholelithiasis with cholecystitis on RUQ U/S. HIDA was negative and no surgical intervention is indicated at this time. Patient pending transfer to TCU for further rehabilitation. Plan: 1. Multifocal HAP -CT chest showed patchy scattered areas of groundglass opacity, consolidation, nodular infiltrates bilaterally, with consolidation most prominently in the right mid lung, and without pleural effusion -Chest X-Ray showed right lower lobe pneumonia -Blood and sputum cultures negative -Influenza and Legionella negative -Improving leukocytosis without fevers, tachycardia or tachypnea -Continue Doxycycline 100mg PO Q12 (Day 5/7) -Continue IV Solu-Medrol 40mg Q8 -Continue scheduled and as needed Duonebs -Continue Tessalon Perles, Singulair (home) and Daliresp -6MWT pending -ID and Pulmonology consulted, all recommendations appreciated -PT/OT recommending HWS/TCU 2. Cholelithiasis -HIDA pending -Gallbladder U/S showed cholelithiasis with presumptive findings of cholecystitis -Liver enzymes elevated but downtrending -No acute surgical intervention indicated at this time -Patient to have cholecystectomy as an outpatient -Surgery consulted, all recommendations appreciated 3. Elevated BNP -BNP mildly elevated at 1520 -Echo showed LVEF of 60%, mild TR, and mild pHTN -Three serial troponins negative -Cardiology consulted, all recommendations appreciated 4. History of HTN -Continue home Zestril 5. History of Glaucoma -Continue home Timolol ophthalmic solution GI Prophylaxis: Protonix DVT Prophylaxis: Lovenox Patient seen and case discussed with attending, Dr. Zepeda. <Parris Zepeda - Last Filed: 01/24/18 15:48> Objective - Vital Signs/Intake and Output Vital Signs (last 24 hours): Temp Pulse Resp BP Pulse Ox 97.5 F L 84 20 159/92 H 96 01/24/18 12:00 01/24/18 12:00 01/24/18 12:00 01/24/18 12:00 01/24/18 00:01 Intake and Output: 01/24/18 01/24/18 06:59 18:59 Intake Total 300 Balance 300 - Medications Medications: Current Medications Albuterol/Ipratropium (Duoneb 3 Mg/0.5 Mg (3 Ml) Ud) 3 ml IH Q2H PRN PRN Reason: Shortness of Breath Last Admin: 01/21/18 04:26 Dose: 3 ml Albuterol/Ipratropium (Duoneb 3 Mg/0.5 Mg (3 Ml) Ud) 3 ml IH [id number] [facility] Last Admin: 01/24/18 13:28 Dose: 3 ml Benzonatate (Tessalon Perles) 100 mg PO TID [facility] Last Admin: 01/24/18 15:01 Dose: 100 mg Doxycycline Hyclate (Doryx) 100 mg PO Q12 [facility] PRN Reason: Protocol Last Admin: 01/24/18 10:22 Dose: 100 mg Enoxaparin Sodium (Lovenox) 30 mg SC DAILY [facility] PRN Reason: Protocol Last Admin: 01/24/18 10:23 Dose: 30 mg Lisinopril (Zestril) 5 mg PO DAILY [facility] Last Admin: 01/24/18 10:22 Dose: 5 mg Methylprednisolone (Solu-Medrol) 40 mg IVP Q8 [facility] Last Admin: 01/24/18 15:01 Dose: 40 mg Montelukast Sodium (Singulair) 10 mg PO DAILY [facility] Last Admin: 01/24/18 10:22 Dose: 10 mg Multi-Ingredient Cream (Hydrocerin Cream) 0 ea TOP DAILY [facility] Last Admin: 01/24/18 10:23 Dose: 1 apful Pantoprazole Sodium (Protonix Ec Tab) 40 mg PO 0600 [facility] Last Admin: 01/24/18 06:41 Dose: 40 mg Roflumilast (Daliresp) 500 mcg PO DAILY [facility] Last Admin: 01/24/18 10:22 Dose: 500 mcg Timolol Maleate (Timoptic 0.5% Ophth Soln) 1 drop OU HS [facility] Last Admin: 01/23/18 22:26 Dose: 1 unit - Labs Labs: 01/24/18 06:15 01/24/18 06:15 PT 14.5 SECONDS (9.4-12.5) H 01/19/18 18:30 INR 1.27 (0.93-1.08) H 01/19/18 18:30 APTT 32.2 Seconds (25.1-36.5) 01/19/18 18:30 Attending/Attestation - Attestation I have personally seen and examined this patient.: Yes I have fully participated in the care of the patient.: Yes I have reviewed all pertinent clinical information, including history, physical exam and plan: Yes Notes (Text): 01/24/18 15:47 Attending note; Patient seen and examined with resident. Patient is a 82 year old female with history of asthma, glaucoma, hypertension, beryllium exposure, history of multiple episodes of pneumonia in the past with the last one being 2 years ago who was brought by the daughter for evaluation of persistent cough, fever and found to have right lower lobe pneumonia. Patient is currently afebrile and nontoxic. ID evaluation appreciated. Currently on doxycycline. Pulmonary consult appreciated. continue IV steroids. abdominal pain; resolved. Tolerating diet. HIDA scan is negative. Surgery evaluation appreciated. Needs outpatient follow- up. PT evaluation appreciated. Transferred to TCU today. Needs close follow-up with pulmonary/surgery upon discharge. Upon discharge patient will follow up with Dr Infante.
--- NOTE | 2018-01-24 15:10 | CP.PCM.DIS ---
<Frederic Abebe - Last Filed: 01/24/18 15:06> Provider - Provider Date of Admission: 01/19/18 20:02 Attending physician: Parris Zepeda MD Primary care physician: Teresa Infante MD Consults: ID: Ghassan Surgery: Thony Pulm: Jaylon Cardio: Vinny Time Spent in preparation of Discharge (in minutes): 41 Diagnosis - Discharge Diagnosis (1) Pneumonia Status: Acute Hospital Course - Lab Results Lab Results: Micro Results 01/22/18 12:30 Sputum Gram Stain - Final 01/22/18 12:30 Sputum Sputum Culture - Final NORMAL ORAL ELPIDIO 01/19/18 21:27 Urine Urine Culture - Final 10-50,000 CFU/ML. MULTIPLE SPECIES. PROBABLE CONTAMINATION. Most Recent Lab Values WBC 11.1 10^3/ul (4.5-11.0) H 01/24/18 06:15 RBC 3.54 10^6/uL (3.5-6.1) 01/24/18 06:15 Hgb 10.5 g/dL (12.0-16.0) L 01/24/18 06:15 Hct 33.0 % (36.0-48.0) L 01/24/18 06:15 MCV 93.2 fl (80.0-105.0) 01/24/18 06:15 MCH 29.7 pg (25.0-35.0) 01/24/18 06:15 MCHC 31.8 g/dl (31.0-37.0) 01/24/18 06:15 RDW 14.1 % (11.5-14.5) 01/24/18 06:15 Plt Count 343 10^3/uL (120.0-450.0) 01/24/18 06:15 MPV 9.0 fl (7.0-11.0) 01/24/18 06:15 Gran % 83.8 % (50.0-68.0) H 01/19/18 18:30 Lymph % (Auto) 4.1 % (22.0-35.0) L 01/19/18 18:30 Bell % (Auto) 11.9 % (1.0-6.0) H 01/19/18 18:30 Eos % (Auto) 0.0 % (1.5-5.0) L 01/19/18 18:30 Baso % (Auto) 0.2 % (0.0-3.0) 01/19/18 18:30 Gran # 11.94 (1.4-6.5) H 01/19/18 18:30 Lymph # (Auto) 0.6 (1.2-3.4) L 01/19/18 18:30 Bell # (Auto) 1.7 (0.1-0.6) H 01/19/18 18:30 Eos # (Auto) 0.0 (0.0-0.7) 01/19/18 18:30 Baso # (Auto) 0.03 K/mm3 (0.0-2.0) 01/19/18 18:30 Neutrophils % (Manual) 80 % (50.0-70.0) H 01/19/18 18:30 Lymphocytes % (Manual) 10 % (22.0-35.0) L 01/19/18 18:30 Monocytes % (Manual) 10 % (1.0-6.0) H 01/19/18 18:30 PT 14.5 SECONDS (9.4-12.5) H 01/19/18 18:30 INR 1.27 (0.93-1.08) H 01/19/18 18:30 APTT 32.2 Seconds (25.1-36.5) 01/19/18 18:30 pCO2 34 mm/Hg (35-45) L 01/19/18 18:24 pO2 126 mm/Hg (30-55) H 01/19/18 18:30 HCO3 21.6 mmol/L (21-28) 01/19/18 18:24 ABG pH 7.41 (7.35-7.45) 01/19/18 18:24 ABG Total CO2 22.6 mmol.L (22-28) 01/19/18 18:24 ABG O2 Saturation 97.9 % (95-98) 01/19/18 18:24 ABG Base Excess -2.4 mmol/L (-2.0-3.0) L 01/19/18 18:24 ABG Potassium 3.9 mmol/L (3.6-5.2) 01/19/18 18:24 VBG pH 7.38 (7.32-7.43) 01/19/18 18:30 VBG pCO2 41.0 (40-60) 01/19/18 18:30 VBG HCO3 24.3 mmol/l (21-28) 01/19/18 18:30 VBG Total CO2 25.6 mmol.L (22-28) 01/19/18 18:30 VBG O2 Sat (Calc) 98.9 % (40-65) H 01/19/18 18:30 VBG Base Excess -0.8 mmol/L (0.0-2.0) L 01/19/18 18:30 VBG Potassium 4.5 mmol/L (3.6-5.2) 01/19/18 18:30 Sodium 134.0 mmol/L (132-148) 01/19/18 18:30 Chloride 103.0 mmol/L (98-107) 01/19/18 18:30 Glucose 118 mg/dl (65-105) H 01/19/18 18:30 Lactate 1.2 mmol/L (0.7-2.1) 01/19/18 18:30 FiO2 21.0 % 01/19/18 18:30 Sodium 141 mmol/L (132-148) 01/24/18 06:15 Potassium 4.9 mmol/L (3.6-5.0) 01/24/18 06:15 Chloride 103 mmol/L (98-107) 01/24/18 06:15 Carbon Dioxide 33 mmol/L (21-33) 01/24/18 06:15 Anion Gap 10 (10-20) 01/24/18 06:15 BUN 20 mg/dL (7-21) 01/24/18 06:15 Creatinine 0.7 mg/dl (0.7-1.2) 01/24/18 06:15 Est GFR ( Amer) > 60 01/24/18 06:15 Est GFR (Non-Af Amer) > 60 01/24/18 06:15 Random Glucose 120 mg/dL (70-110) H 01/24/18 06:15 Calcium 8.8 mg/dL (8.4-10.5) 01/24/18 06:15 Phosphorus 3.4 mg/dL (2.5-4.5) 01/24/18 06:15 Magnesium 2.6 mg/dL (1.7-2.2) H 01/24/18 06:15 Total Bilirubin 0.4 mg/dL (0.2-1.3) 01/24/18 06:15 AST 40 U/L (14-36) H 01/24/18 06:15 ALT 49 U/L (7-56) 01/24/18 06:15 Alkaline Phosphatase 79 U/L (38-126) 01/24/18 06:15 Lactate Dehydrogenase 479 U/L (333-699) 01/19/18 18:30 Total Creatine Kinase 84 U/L (35-230) 01/19/18 18:30 Troponin I 0.02 ng/mL D 01/20/18 08:04 NT-Pro-B Natriuret Pep 1520 pg/mL (0-450) H 01/19/18 18:30 Total Protein 5.7 g/dL (5.8-8.3) L 01/24/18 06:15 Albumin 2.7 g/dL (3.0-4.8) L 01/24/18 06:15 Globulin 3.0 gm/dL 01/24/18 06:15 Albumin/Globulin Ratio 0.9 (1.1-1.8) L 01/24/18 06:15 Procalcitonin 1.50 NG/ML (0.19-0.49) H 01/20/18 07:50 Arterial Blood Potassium 3.9 mmol/L (3.6-5.2) 01/19/18 18:24 Venous Blood Potassium 4.5 mmol/L (3.6-5.2) 01/19/18 18:30 Urine Color Yellow (YELLOW) 01/19/18 21:27 Urine Appearance Clear (CLEAR) 01/19/18 21:27 Urine pH 6.0 (4.7-8.0) 01/19/18 21:27 Ur Specific [place] 1.010 (1.005-1.035) 01/19/18 21:27 Urine Protein Trace mg/dL (<30 mg/dL) H 01/19/18 21:27 Urine Glucose (UA) Negative mg/dL (NEGATIVE) 01/19/18 21:27 Urine Ketones 15 mg/dL (NEGATIVE) H 01/19/18 21:27 Urine Blood Small (NEGATIVE) H 01/19/18 21:27 Urine Nitrate Negative (NEGATIVE) 01/19/18 21:27 Urine Bilirubin Negative (NEGATIVE) 01/19/18 21:27 Urine Urobilinogen 0.2 E.U./dL (<1 E.U./dL) 01/19/18 21:27 Ur Leukocyte Esterase Trace [place]/uL (NEGATIVE) H 01/19/18 21:27 Urine RBC 0 - 2 /hpf (0-2) 01/19/18 21:27 Urine WBC 5 - 10 /hpf (0-6) 01/19/18 21:27 Ur Epithelial Cells 0 - 2 /hpf (0-5) 01/19/18 21:27 Urine Bacteria Few (NEG) 01/19/18 21:27 Coccidioides Ab TNP 01/20/18 07:50 Histop Galactomannan Ag <0.5 ng/mL 01/21/18 11:25 Influenza Typ A,B (EIA) Negative for flu a/b (NEGATIVE) 01/19/18 18:30 Ur L.pneumophila Ag Negative (NEGATIVE) 01/22/18 14:20 - Hospital Course Hospital Course: 82 year old female with a past medical history significant for asthma, glaucoma and HTN admitted for evaluation and treatment for multifocal HAP. She is currently on day 5 of 7 of PO Doxycycline and IV solu-medrol. Patient was found to have transaminitis and subsequently cholelithiasis with cholecystitis on RUQ U/S. HIDA was negative and no surgical intervention is indicated at this time. Patient discharged to TCU for further rehabilitation on 01/24/18. For further details, please see medicine progress note for 01/24/2018. - Date & Time of H&P Date of H&P: 01/20/18 Time of H&P: 00:16 Discharge Exam - Head Exam Head Exam: ATRAUMATIC, NORMOCEPHALIC - Eye Exam Eye Exam: EOMI, Normal appearance Pupil Exam: NORMAL ACCOMODATION, PERRL - ENT Exam ENT Exam: Mucous Membranes Moist, Normal Exam - Neck Exam Neck exam: Full Rom, Normal Inspection - Respiratory Exam Respiratory Exam: Wheezes (Trace, scattered, end expiratory), NORMAL BREATHING PATTERN. absent: Accessory Muscle Use, Chest Wall Tenderness, Decreased Breath Sounds, Clear to PA & Lateral, Prolonged Expiratory Phase, Rales, Rhonchi, Respiratory Distress, Stridor, UNREMARKABLE - Cardiovascular Exam Cardiovascular Exam: REGULAR RHYTHM - GI/Abdominal Exam GI & Abdominal Exam: Normal Bowel Sounds, Unremarkable - Extremities Exam Extremities exam: full ROM, normal capillary refill, normal inspection, pedal pulses present - Back Exam Back exam: NORMAL INSPECTION - Neurological Exam Neurological exam: Alert, CN II-XII Intact, Normal Gait, Oriented x3, Reflexes Normal - Psychiatric Exam Psychiatric exam: Normal Affect, Normal Mood - Skin Skin Exam: Dry, Intact, Normal Color, Warm Discharge Plan - Follow Up Plan Condition: SERIOUS Disposition: REHAB FACILITY/REHAB UNIT Additional Instructions: Please continue all medications, consults, orders and diet in TCU. Please follow up with Dr. Infante within one week of discharge for post hospitalization follow up. Please discuss with him the medical issues addressed while you were admitted to the [facility]. Please follow up with Dr. Iyer, Pulmonary Medicine, within one to two weeks after dis Please follow up with Dr. Bhandari, Surgery, within one to two weeks, after discussing with Dr. Infante, for evaluation for cholecystectomy. His contact information has been provided in this paperwork. Please take all medications as prescribed If your symptoms worsen or persist, please seek emergency medical attention Referrals: Teresa Infante MD [Primary Care Provider] - Ludin Bhandari MD [Staff Provider] - Joaquim Iyer MD [Staff Provider] - <Parris Zepeda - Last Filed: 01/24/18 15:49> Provider - Provider Date of Admission: 01/19/18 20:02 Attending physician: Parris Zepeda MD Primary care physician: Teresa Infante MD Hospital Course - Lab Results Lab Results: Micro Results 01/22/18 12:30 Sputum Gram Stain - Final 01/22/18 12:30 Sputum Sputum Culture - Final NORMAL ORAL ELPIDIO 01/19/18 21:27 Urine Urine Culture - Final 10-50,000 CFU/ML. MULTIPLE SPECIES. PROBABLE CONTAMINATION. Most Recent Lab Values WBC 11.1 10^3/ul (4.5-11.0) H 01/24/18 06:15 RBC 3.54 10^6/uL (3.5-6.1) 01/24/18 06:15 Hgb 10.5 g/dL (12.0-16.0) L 01/24/18 06:15 Hct 33.0 % (36.0-48.0) L 01/24/18 06:15 MCV 93.2 fl (80.0-105.0) 01/24/18 06:15 MCH 29.7 pg (25.0-35.0) 01/24/18 06:15 MCHC 31.8 g/dl (31.0-37.0) 01/24/18 06:15 RDW 14.1 % (11.5-14.5) 01/24/18 06:15 Plt Count 343 10^3/uL (120.0-450.0) 01/24/18 06:15 MPV 9.0 fl (7.0-11.0) 01/24/18 06:15 Gran % 83.8 % (50.0-68.0) H 01/19/18 18:30 Lymph % (Auto) 4.1 % (22.0-35.0) L 01/19/18 18:30 Bell % (Auto) 11.9 % (1.0-6.0) H 01/19/18 18:30 Eos % (Auto) 0.0 % (1.5-5.0) L 01/19/18 18:30 Baso % (Auto) 0.2 % (0.0-3.0) 01/19/18 18:30 Gran # 11.94 (1.4-6.5) H 01/19/18 18:30 Lymph # (Auto) 0.6 (1.2-3.4) L 01/19/18 18:30 Bell # (Auto) 1.7 (0.1-0.6) H 01/19/18 18:30 Eos # (Auto) 0.0 (0.0-0.7) 01/19/18 18:30 Baso # (Auto) 0.03 K/mm3 (0.0-2.0) 01/19/18 18:30 Neutrophils % (Manual) 80 % (50.0-70.0) H 01/19/18 18:30 Lymphocytes % (Manual) 10 % (22.0-35.0) L 01/19/18 18:30 Monocytes % (Manual) 10 % (1.0-6.0) H 01/19/18 18:30 PT 14.5 SECONDS (9.4-12.5) H 01/19/18 18: INR 1.27 (0.93-1.08) H 01/19/18 18: APTT 32.2 Seconds (25.1-36.5) 01/19/18 18: pCO2 34 mm/Hg (35-45) L 01/19/18 18: pO2 126 mm/Hg (30-55) H 01/19/18 18: HCO3 21.6 mmol/L (21-28) 01/19/18 18:24 ABG pH 7.41 (7.35-7.45) 01/19/18 18: ABG Total CO2 22.6 mmol.L (22-28) 01/19/18 18: ABG O2 Saturation 97.9 % (95-98) 01/19/18 18: ABG Base Excess -2.4 mmol/L (-2.0-3.0) L 01/19/18 ABG Potassium 3.9 mmol/L (3.6-5.2) 01/19/18 18:24 VBG pH 7.38 (7.32-7.43) 01/19/18 18: VBG pCO2 41.0 (40-60) 01/19/18 18: VBG HCO3 24.3 mmol/l (21-28) 01/19/18 18:30 VBG Total CO2 25.6 mmol.L (22-28) 01/19/18 18:30 VBG O2 Sat (Calc) 98.9 % (40-65) H 01/19/18 18: VBG Base Excess -0.8 mmol/L (0.0-2.0) L 01/19/18 18:30 VBG Potassium 4.5 mmol/L (3.6-5.2) 01/19/18 18:30 Sodium 134.0 mmol/L (132-148) 01/19/18 18: Chloride 103.0 mmol/L (98-107) 01/19/18 18: Glucose 118 mg/dl (65-105) H 01/19/18 18: Lactate 1.2 mmol/L (0.7-2.1) 01/19/18 18:30 FiO2 21.0 % 01/19/18 18:30 Sodium 141 mmol/L (132-148) 01/24/18 06:15 Potassium 4.9 mmol/L (3.6-5.0) 01/24/18 06:15 Chloride 103 mmol/L (98-107) 01/24/18 06:15 Carbon Dioxide 33 mmol/L (21-33) 01/24/18 06:15 Anion Gap 10 (10-20) 01/24/18 06:15 BUN 20 mg/dL (7-21) 01/24/18 06:15 Creatinine 0.7 mg/dl (0.7-1.2) 01/24/18 06:15 Est GFR ( Amer) > 60 01/24/18 06:15 Est GFR (Non-Af Amer) > 60 01/24/18 06:15 Random Glucose 120 mg/dL (70-110) H 01/24/18 06:15 Calcium 8.8 mg/dL (8.4-10.5) 01/24/18 06:15 Phosphorus 3.4 mg/dL (2.5-4.5) 01/24/18 06:15 Magnesium 2.6 mg/dL (1.7-2.2) H 01/24/18 06:15 Total Bilirubin 0.4 mg/dL (0.2-1.3) 01/24/18 06:15 AST 40 U/L (14-36) H 01/24/18 06:15 ALT 49 U/L (7-56) 01/24/18 06:15 Alkaline Phosphatase 79 U/L (38-126) 01/24/18 06:15 Lactate Dehydrogenase 479 U/L (333-699) 01/19/18 18:30 Total Creatine Kinase 84 U/L (35-230) 01/19/18 18:30 Troponin I 0.02 ng/mL D 01/20/18 08:04 NT-Pro-B Natriuret Pep 1520 pg/mL (0-450) H 01/19/18 18:30 Total Protein 5.7 g/dL (5.8-8.3) L 01/24/18 06:15 Albumin 2.7 g/dL (3.0-4.8) L 01/24/18 06:15 Globulin 3.0 gm/dL 01/24/18 06:15 Albumin/Globulin Ratio 0.9 (1.1-1.8) L 01/24/18 06:15 Procalcitonin 1.50 NG/ML (0.19-0.49) H 01/20/18 07:50 Arterial Blood Potassium 3.9 mmol/L (3.6-5.2) 01/19/18 18:24 Venous Blood Potassium 4.5 mmol/L (3.6-5.2) 01/19/18 18:30 Urine Color Yellow (YELLOW) 01/19/18 21:27 Urine Appearance Clear (CLEAR) 01/19/18 21:27 Urine pH 6.0 (4.7-8.0) 01/19/18 21:27 Ur Specific [place] 1.010 (1.005-1.035) 01/19/18 21:27 Urine Protein Trace mg/dL (<30 mg/dL) H 01/19/18 21:27 Urine Glucose (UA) Negative mg/dL (NEGATIVE) 01/19/18 21:27 Urine Ketones 15 mg/dL (NEGATIVE) H 01/19/18 21:27 Urine Blood Small (NEGATIVE) H 01/19/18 21:27 Urine Nitrate Negative (NEGATIVE) 01/19/18 21:27 Urine Bilirubin Negative (NEGATIVE) 01/19/18 21:27 Urine Urobilinogen 0.2 E.U./dL (<1 E.U./dL) 01/19/18 21:27 Ur Leukocyte Esterase Trace [place]/uL (NEGATIVE) H 01/19/18 21:27 Urine RBC 0 - 2 /hpf (0-2) 01/19/18 21:27 Urine WBC 5 - 10 /hpf (0-6) 01/19/18 21:27 Ur Epithelial Cells 0 - 2 /hpf (0-5) 01/19/18 21:27 Urine Bacteria Few (NEG) 01/19/18 21:27 Coccidioides Ab TNP 01/20/18 07:50 Histop Galactomannan Ag <0.5 ng/mL 01/21/18 11:25 Influenza Typ A,B (EIA) Negative for flu a/b (NEGATIVE) 01/19/18 18:30 Ur L.pneumophila Ag Negative (NEGATIVE) 01/22/18 14:20 Attending/Attestation - Attestation I have personally seen and examined this patient.: Yes I have fully participated in the care of the patient.: Yes I have reviewed all pertinent clinical information, including history, physical exam and plan: Yes Notes (Text): 01/24/18 15:49 Attending note; Patient seen and examined with resident. Patient is a 82 year old female with history of asthma, glaucoma, hypertension, beryllium exposure, history of multiple episodes of pneumonia in the past with the last one being 2 years ago who was brought by the daughter for evaluation of persistent cough, fever and found to have right lower lobe pneumonia. Patient is currently afebrile and nontoxic. ID evaluation appreciated. Currently on doxycycline. Pulmonary consult appreciated. continue IV steroids. abdominal pain; resolved. Tolerating diet. HIDA scan is negative. Surgery evaluation appreciated. Needs outpatient follow- up. PT evaluation appreciated. Transferred to TCU today. Needs close follow-up with pulmonary/surgery upon discharge. Upon discharge patient will follow up with Dr Infante.
[2018-01-24 17:45] VITALS: BP 140/69; PULSE 86; RESP 18
[2018-01-24 18:04] VITALS: TEMP 98.6; O2SAT 97
[2018-01-24] MEDS ORDERED: MethylPREDNISolone 40 mg Vial IVP SCH (22:00)
--- NOTE | 2018-01-25 00:04 | PN ---
DATE: 01/24/2018 PULMONARY PROGRESS NOTE REFERRING PHYSICIAN: Parris Zepeda M.D. SUBJECTIVE: The patient is lying in the bed, head at 45 degrees. Night was unremarkable. Feels much better. Decreased cough. Decreased shortness of breath. No nausea. No vomiting or diarrhea. No leg pain or leg swelling. OBJECTIVE: GENERAL: In no acute distress. VITAL SIGNS: Temperature is 98, heart rate is 86,respiratory rate is 18, blood pressure 140/69, pulse ox 97% on room air. HEENT: Moist mucous membrane. No ulcer or thrush noted. NECK: Supple. No JVD. LUNGS: Has a better airflow. Prolonged expiratory phase, but no wheezing. HEART: S1 and S2. ABDOMEN: Soft, nontender. No organomegaly. EXTREMITIES: No edema. NEUROLOGICAL: Awake and alert. Follows simple commands. MEDICATIONS: She is on Daliresp 500 mcg daily, doxycycline 100 mg twice a day, DuoNeb every 2 hours p.r.n. and every 6 hours [id number], Lovenox 30 mg daily, Protonix 40 mg daily, Singulair 10 mg daily, Solu-Medrol 40 mg every 8 hour, Tessalon Perles 100 mg three times a day, Zestril 5 mg daily. LABORATORY DATA: Shows hemoglobin 10.5, hematocrit 33.7, WBC 11.1, platelet is 343. Sodium 141, potassium 4.9, chloride 103, bicarbonate 33, BUN 20, creatinine 0.7, glucose 120, calcium is 8.8, phosphorus 3.4, magnesium 2.6. AST 40, ALT 49, alkaline phosphatase is 79, albumin is 2.7. Microbiology: Blood culture, sputum culture, urine culture is unremarkable. IMPRESSION AND PLAN: Berylliosis with chronic obstructive lung disease, pneumonitis and fibrosis, pulmonary hypertension, pneumonia. Pulmonary point of view, she is doing well. May start tapering down the steroids. Outpatient pulmonary function test. Thank you and we will follow with you. Joaquim Iyer MD
== END 2018-01-24 18:44 | DRG 194 ==
LOC: ED 17:25 → ERH 20:02 → 3RSO 22:59
PROVIDERS: ADMIT Internal Medicine; ATTEND Internal Medicine
DX: J18.9 Pneumonia, unspecified organism (principal); J44.0 Chronic obstructive pulmonary disease with (acute) lower respiratory infection; K80.00 Calculus of gallbladder with acute cholecystitis without obstruction; N39.0 Urinary tract infection, site not specified; I50.9 Heart failure, unspecified; I27.23 Pulmonary hypertension due to lung diseases and hypoxia; I11.0 Hypertensive heart disease with heart failure; H40.9 Unspecified glaucoma; I48.0 Paroxysmal atrial fibrillation; Z98.49 Cataract extraction status, unspecified eye; Z80.0 Family history of malignant neoplasm of digestive organs

== ENCOUNTER 2018-01-24 18:44 | Inpatient (IN) | payer OTHER ==
[2018-01-24] MEDS ORDERED: Albuterol-Ipratrop 3 mg / 0.5 (3 ml) UD IH PRN (19:33)
[2018-01-24] MEDS: Albuterol-Ipratrop 3 mg / 0.5 (3 ml) UD IH SCH (20:00)
[2018-01-24 20:54] VITALS: BMI 25.3
[2018-01-24] MEDS: MethylPREDNISolone 40 mg Vial IVP SCH (21:37)
[2018-01-25] MEDS: Albuterol-Ipratrop 3 mg / 0.5 (3 ml) UD IH SCH ×4 (01:39→20:13)
[2018-01-25] MEDS: Enoxaparin 30 mg Syringe SC SCH (05:18)
[2018-01-25] MEDS: MethylPREDNISolone 40 mg Vial IVP SCH ×3 (05:19→21:16)
[2018-01-25] MEDS: Pantoprazole 40 mg EC Tab PO SCH (05:19)
[2018-01-25] MEDS ORDERED: MethylPREDNISolone 40 mg Vial IVP SCH (07:28)
[2018-01-25 09:05] LABS: BASO # 0.07 K/mm3 (0.0-2.0); BASO % 0.5 % (0.0-3.0); GRAN # 13.5 (1.4-6.5); GRAN % 88.5 % (50.0-68.0); LYMPH # 1.3 (1.2-3.4); LYMPH % 8.8 % (22.0-35.0); MEAN CORPUSCULAR HEMOGLOBIN 30.6 pg (25.0-35.0); MEAN CORPUSCULAR HGB CONC 33.3 g/dl (31.0-37.0); MEAN PLATELET VOLUME 8.8 fl (7.0-11.0); MONO # 0.3 (0.1-0.6); MONO % 2.2 % (1.0-6.0); RBC 4.38 10^6/uL (3.5-6.1); RED CELL DISTRIBUTION WIDTH 13.9 % (11.5-14.5); WHITE BLOOD COUNT 15.3 10^3/ul (4.5-11.0)
[2018-01-25 09:06] LABS: ALBUMIN 3.6 g/dL (3.0-4.8); ALT/SGPT 52 U/L (7-56); AST/SGOT 29 U/L (14-36); BLOOD UREA NITROGEN 19 mg/dL (7-21); CALCIUM 9.9 mg/dL (8.4-10.5); GFR AFRICAN-AMERICAN > 60; GFR NON-AFRICAN AMERICAN > 60
[2018-01-25 09:10] LABS: HEMOGLOBIN 13.4 g/dL (12.0-16.0)
[2018-01-25] MEDS: Hydrocerin(120 gm) TOP SCH (10:00)
--- NOTE | 2018-01-25 14:10 | CP.PCM.HP ---
<Frederic Abebe - Last Filed: 01/25/18 14:04> History of Present Illness - History of Present Illness History of Present Illness: Mrs. Corrigan is an 82 year old female with a past medical history significant for asthma, glaucoma and HTN who was admitted for evaluation and treatment for community acquired pneumonia. Patient was found to have transaminitis and subsequently cholelithiasis with cholecystitis on RUQ U/S. However, HIDA was negative and no acute surgical interventions were indicated. Patient was transferred to the TCU for further rehabilitation. Patient was seen and assessed at bedside in the TCU. No acute events overnight. Patient reports that she would like to be advanced to a regular consistency diet at this time. She denies any complaints including fever, chills, headache, chest pain, SOB, cough , abdominal pain, N/V/D/C, urinary changes, skin changes, or any numbness/ tingling/weakness of any extremity. PMH: Asthma, glaucoma, HTN PSH: Cataracts, ORIF for right ankle fracture Family: Stomach CA Social: Denied tobacco, alcohol and illicit drug use Allergies: NKDA Home Medications: As per MAR PMD: [place] Present on Admission - Present on Admission Any Indicators Present on Admission: No Review of Systems - Review of Systems Review of Systems: As per HPI, otherwise negative Past Patient History - Infectious Disease Hx of Infectious Diseases: None - Past Social History Smoking Status: Never Smoked - CARDIAC Hx Hypertension: Yes - PULMONARY Hx Chronic Obstructive Pulmonary Disease (COPD): Yes - HEENT Hx Glaucoma: Yes - MUSCULOSKELETAL/RHEUMATOLOGICAL Hx Falls: Yes (2010) - GENITOURINARY/GYNECOLOGICAL Hx Reproductive Disorders: No - PSYCHIATRIC Hx Substance Use: No - SURGICAL HISTORY Hx Surgeries: Yes (right leg surgery) - ANESTHESIA Hx Anesthesia: No Hx Anesthesia Reactions: No Hx Malignant Hyperthermia: No Meds Allergies/Adverse Reactions: Allergies Allergy/AdvReac Type Severity Reaction Status Date / Time No Known Allergies Allergy Verified 06/01/15 11:01 Physical Exam - Constitutional Appears: Non-toxic, No Acute Distress - Head Exam Head Exam: ATRAUMATIC, NORMOCEPHALIC - Eye Exam Eye Exam: EOMI, Normal appearance Pupil Exam: NORMAL ACCOMODATION, PERRL - ENT Exam ENT Exam: Mucous Membranes Moist, Normal Exam - Neck Exam Neck exam: Positive for: Full Rom, Normal Inspection. Negative for: Lymphadenopathy, Tenderness - Respiratory Exam Respiratory Exam: Wheezes (trace; interval improvement noted), NORMAL BREATHING PATTERN. absent: Accessory Muscle Use, Chest Wall Tenderness, Decreased Breath Sounds, Clear to Auscultation Bilateral, Prolonged Expiratory Phase, Rales, Rhonchi, Respiratory Distress, Stridor - Cardiovascular Exam Cardiovascular Exam: REGULAR RHYTHM, RRR, +S1, +S2. absent: Bradycardia, Tachycardia, Clicks, Diastolic murmur, Gallop, Irregular Rhythm, JVD, Rubs, +S4 , Systolic Murmur - GI/Abdominal Exam GI & Abdominal Exam: Normal Bowel Sounds, Soft. absent: Distended, Firm, Guarding, Rebound, Rigid, Tenderness - Extremities Exam Extremities exam: Positive for: full ROM, normal capillary refill, normal inspection, pedal pulses present. Negative for: calf tenderness, joint swelling , pedal edema, tenderness - Back Exam Back exam: NORMAL INSPECTION - Neurological Exam Neurological exam: Alert, CN II-XII Intact, Oriented x3, Reflexes Normal - Psychiatric Exam Psychiatric exam: Normal Affect, Normal Mood - Skin Skin Exam: Dry, Intact, Normal Color, Warm Results - Vital Signs Recent Vital Signs: Last Vital Signs Temp 97.8 F 01/24/18 20:45 Pulse 91 H 01/25/18 10:02 Resp 18 01/24/18 20:45 BP 115/63 01/25/18 10:02 Pulse Ox - Labs Result Diagrams: 01/25/18 08:52 01/25/18 08:52 Labs: Laboratory Results - last 24 hr 01/25/18 01/25/18 08:52 08:52 WBC 15.3 H D RBC 4.38 Hgb 13.4 D Hct 40.3 MCV 92.0 MCH 30.6 MCHC 33.3 RDW 13.9 Plt Count 494 H MPV 8.8 Gran % 88.5 H Lymph % (Auto) 8.8 L [place] % (Auto) 2.2 Eos % (Auto) 0.0 L Baso % (Auto) 0.5 Gran # 13.50 H Lymph # (Auto) 1.3 [place] # (Auto) 0.3 Eos # (Auto) 0.0 Baso # (Auto) 0.07 Sodium 142 Potassium 4.6 Chloride 104 Carbon Dioxide 29 Anion Gap 14 BUN 19 Creatinine 0.8 Est GFR ( Amer) > 60 Est GFR (Non-Af Amer) > 60 Random Glucose 126 H Calcium 9.9 Total Bilirubin 0.9 AST 29 ALT 52 Alkaline Phosphatase 93 Total Protein 7.3 Albumin 3.6 Globulin 3.6 Albumin/Globulin Ratio 1.0 L Assessment & Plan - Assessment and Plan (Free Text) Assessment: 82 year old female with a past medical history significant for asthma, glaucoma and HTN admitted for evaluation and treatment for multifocal HAP. Patient was found to have transaminitis and subsequently cholelithiasis with cholecystitis on RUQ U/S. HIDA was negative and no surgical intervention is indicated at this time. Patient transferred to TCU for further rehabilitation. Plan: 1. Multifocal HAP -CT chest showed patchy scattered areas of groundglass opacity, consolidation, nodular infiltrates bilaterally, with consolidation most prominently in the right mid lung, and without pleural effusion -Chest X-Ray showed right lower lobe pneumonia -Blood and sputum cultures negative -Influenza and Legionella negative -Improving leukocytosis without fevers, tachycardia or tachypnea -Continue Doxycycline 100mg PO Q12 (Day 6/7) -Tapered IV Solu-Medrol to 30mg Q8 -Continue scheduled and as needed Duonebs -Continue Tessalon Perles Singulair (home) and Daliresp -6MWT pending -Pulmonology consulted, all recommendations appreciated -PT/OT as scheduled 2. Cholelithiasis -HIDA pending -Gallbladder U/S showed cholelithiasis with presumptive findings of cholecystitis -Liver enzymes elevated but downtrending -No acute surgical intervention indicated at this time -Patient to have cholecystectomy as an outpatient 3. Elevated BNP -BNP mildly elevated at 1520 -Echo showed LVEF of 60%, mild TR, and mild pHTN -Three serial troponins negative 4. History of HTN -Continue home Zestril 5. History of Glaucoma -Continue home Timolol ophthalmic solution GI Prophylaxis: Protonix DVT Prophylaxis: Lovenox Disposition: Patient transferred to TCU for further physical rehabilitation and continued treatment of the aforementioned assessments. Patient seen and case discussed with attending, Dr. Zepeda. - Date & Time Date: 01/25/18 Time: 14:04 <Parris Zepeda - Last Filed: 01/25/18 18:56> Results - Vital Signs Recent Vital Signs: Last Vital Signs Temp 98.1 F 04/04/18 17:44 Pulse 80 01/25/18 17:44 Resp 18 01/25/18 17:44 BP 126/73 01/25/18 17:44 Pulse Ox 98 01/25/18 17:44 - Labs Result Diagrams: 01/25/18 08:52 01/25/18 08:52 Labs: Laboratory Results - last 24 hr 01/25/18 01/25/18 08:52 08:52 WBC 15.3 H D RBC 4.38 Hgb 13.4 D Hct 40.3 MCV 92.0 MCH 30.6 MCHC 33.3 RDW 13.9 Plt Count 494 H MPV 8.8 Gran % 88.5 H Lymph % (Auto) 8.8 L [place] % (Auto) 2.2 Eos % (Auto) 0.0 L Baso % (Auto) 0.5 Gran # 13.50 H Lymph # (Auto) 1.3 [place] # (Auto) 0.3 Eos # (Auto) 0.0 Baso # (Auto) 0.07 Sodium 142 Potassium 4.6 Chloride 104 Carbon Dioxide 29 Anion Gap 14 BUN 19 Creatinine 0.8 Est GFR ( Amer) > 60 Est GFR (Non-Af Amer) > 60 Random Glucose 126 H Calcium 9.9 Total Bilirubin 0.9 AST 29 ALT 52 Alkaline Phosphatase 93 Total Protein 7.3 Albumin 3.6 Globulin 3.6 Albumin/Globulin Ratio 1.0 L Attending/Attestation - Attestation I have personally seen and examined this patient.: Yes I have fully participated in the care of the patient.: Yes I have reviewed all pertinent clinical information: Yes Notes (Text): 01/25/18 18:54 attending note; Patient seen and examined In TCU. Patient is getting physical therapy. Not on oxygen now. Patient is a 82 year old female with history of asthma, glaucoma, hypertension, beryllium exposure, history of multiple episodes of pneumonia was admitted with right lower lobe pneumonia. currently transferred to TCU for rehabilitation. Getting physical therapy. Patient is currently afebrile and nontoxic. Currently on doxycycline. Pulmonary consult appreciated. continue IV steroids. taper IV steroids. slowly improving respiratory status. Needs outpatient PFT and sleep study. Upon discharge patient will follow up with Dr Infante.
[2018-01-26] MEDS: Albuterol-Ipratrop 3 mg / 0.5 (3 ml) UD IH SCH ×4 (01:01→19:48)
--- NOTE | 2018-01-26 02:41 | CON ---
DATE: 01/25/2018 PULMONARY CONSULTATION REFERRING PHYSICIAN: Parris Zepeda M.D. 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 HISTORY OF PRESENT ILLNESS: This is an 82-year-old female known to me from acute side of the hospital, has a known history of beryllium exposure in [place]. 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 Patient was exposed to it and then now ended up with chronic obstructive lung disease with pneumonitis and fibrosis on the CAT scan. Responded well so far with high dose of steroids. Feels better, decreased cough, decreased shortness of breath. No nausea, no vomiting, no diarrhea. No leg pain or leg swelling. Presently admitted to the [facility] for continued care. PAST MEDICAL HISTORY: Hypertension, chronic obstructive lung disease. ALLERGIES: NONE KNOWN. SOCIAL HISTORY: Nonsmoker, nondrinker. 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 FAMILY HISTORY: No significant cardiopulmonary disease reported. MEDICATIONS: She is on Daliresp 500 mcg daily, doxycycline 100 mg twice a day, DuoNeb every 12 hours p.r.n. and every 6 hours round the clock, also on Lovenox 30 mg daily, Protonix 40 mg daily, Singulair 10 mg daily, Solu-Medrol 20 mg every 8 hours, Tessalon Perles 100 mg three times a day, eye drops which is timolol, Zestril 5 mg daily. LABORATORY DATA: Shows hemoglobin 13.4, hematocrit 40.3, WBC 15.3, platelet is 494. Sodium 142, potassium 4.6, chloride 104, bicarbonate is 29, BUN 19, creatinine is 0.8, glucose is 126, calcium 9.9. Total bilirubin 0.9, AST 29, ALT 52, alkaline phosphatase is 93, albumin is 3.6. Microbiology: Blood culture, urine culture, sputum culture, there is no growth. 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 Pulmonary point of view, doing well. I will continue steroid, continue inhaled bronchodilator, continue leukotriene inhibitor. Daliresp is on board. Gastric prophylaxis. Fall precaution. Continue therapy. Thank you and we will follow with you. Joaquim Iyer MD
[2018-01-26] MEDS: Pantoprazole 40 mg EC Tab PO SCH (05:16)
[2018-01-26] MEDS: Enoxaparin 30 mg Syringe SC SCH (05:16)
[2018-01-26] MEDS: MethylPREDNISolone 40 mg Vial IVP SCH ×2 (05:17→21:45)
[2018-01-26] MEDS: Hydrocerin(120 gm) TOP SCH (10:07)
--- NOTE | 2018-01-26 16:25 | PN ---
DATE: 01/26/2018 PULMONARY PROGRESS NOTE REFERRING PHYSICIAN: Dr. Zepeda. SUBJECTIVE: She is lying in the bed, head at 45 degrees. Night was unremarkable. Doing well in therapy. Breathing is better. Decreased cough. Decreased shortness of breath. No nausea. No vomiting or diarrhea. No leg pain or leg swelling. OBJECTIVE: GENERAL: In no acute distress. VITAL SIGNS: Temperature is 98, heart rate is 91,respiratory rate is 18, blood pressure 124/57, pulse ox 98% on 2 L nasal canula. HEENT: Moist mucous membranes. Crowded airway. NECK: Supple. No JVD. LUNGS: Prolonged expiratory phase with few wheezing. HEART: S1 and S2. ABDOMEN: Soft, nontender. No organomegaly. EXTREMITIES: There is no edema. NEUROLOGICAL: Awake and alert, follows simple commands. MEDICATIONS: She is on Daliresp 500 mcg daily, albuterol and Atrovent nebulizer every 12 hours p.r.n. and every 6 hours around the clock. She is on Lovenox 30 mg daily, Protonix 40 mg daily, Singulair 10 mg daily, Solu-Medrol 20 mg three times a day, Tessalon Perles 100 mg three times a day, timolol eye drops, Zestril 5 mg daily. LABORATORY DATA: Reviewed and no new lab is available. 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 Pulmonary point of view, she is doing okay. We will decrease Solu-Medrol to 20 every 12 hours. Continue inhaled bronchodilator, antibiotics. Gastric prophylaxis. DVT prophylaxis. Surgical followup. Thank you and we will follow with you. Joaquim Iyer MD
[2018-01-27] MEDS: Albuterol-Ipratrop 3 mg / 0.5 (3 ml) UD IH SCH ×4 (02:00→20:24)
[2018-01-27] MEDS: Pantoprazole 40 mg EC Tab PO SCH (05:06)
[2018-01-27] MEDS: Enoxaparin 30 mg Syringe SC SCH (05:06)
[2018-01-27] MEDS: Hydrocerin(120 gm) TOP SCH (10:07)
[2018-01-27] MEDS: MethylPREDNISolone 40 mg Vial IVP SCH ×2 (10:08→21:15)
--- NOTE | 2018-01-27 11:55 | CP.PCM.PN ---
<Frederic Abebe - Last Filed: 01/27/18 11:49> Subjective - Date & Time of Evaluation Date of Evaluation: 01/27/18 Time of Evaluation: 11:49 - Subjective Subjective: Medicine Progress Note: Patient was seen and assessed at bedside in the TCU. Translation was done by patients daughter, per patient request. No acute events overnight noted by patient or nursing staff. Patient has no complaints at this time. She denies any complaints including fever, chills, headache, chest pain, SOB, cough, abdominal pain, N/V/D/C, urinary changes, skin changes, or any numbness/tingling /weakness of any extremity. Objective - Vital Signs/Intake and Output Vital Signs (last 24 hours): Temp Pulse Resp BP Pulse Ox 98.1 F 95 H 18 112/64 100 01/27/18 10:41 01/27/18 10:41 01/27/18 10:41 01/27/18 10:41 01/27/18 10:41 - Medications Medications: Current Medications Albuterol/Ipratropium (Duoneb 3 Mg/0.5 Mg (3 Ml) Ud) 3 ml IH Q2H PRN; Protocol PRN Reason: Shortness of Breath Albuterol/Ipratropium (Duoneb 3 Mg/0.5 Mg (3 Ml) Ud) 3 ml IH [id number] PRASANNA PRN Reason: Protocol Last Admin: 01/27/18 07:19 Dose: 3 ml Benzonatate (Tessalon Perles) 100 mg PO TID PRASANNA PRN Reason: Protocol Last Admin: 01/27/18 10:08 Dose: 100 mg Enoxaparin Sodium (Lovenox) 30 mg SC 0600 PRASANNA PRN Reason: Protocol Last Admin: 01/27/18 05:06 Dose: 30 mg Lisinopril (Zestril) 5 mg PO DAILY PRASANNA PRN Reason: Protocol Last Admin: 01/27/18 10:14 Dose: 5 mg Methylprednisolone (Solu-Medrol) 20 mg IVP Q12 PRASANNA PRN Reason: Protocol Last Admin: 01/27/18 10:08 Dose: 20 mg Montelukast Sodium (Singulair) 10 mg PO HS PRASANNA PRN Reason: Protocol Last Admin: 01/26/18 21:46 Dose: 10 mg Multi-Ingredient Cream (Hydrocerin Cream) 0 ea TOP DAILY PRASANNA PRN Reason: Protocol Last Admin: 01/27/18 10:07 Dose: 1 applic Pantoprazole Sodium (Protonix Ec Tab) 40 mg PO 0600 PRASANNA PRN Reason: Protocol Last Admin: 01/27/18 05:06 Dose: 40 mg Roflumilast (Daliresp) 500 mcg PO DAILY PRASANNA PRN Reason: Protocol Last Admin: 01/27/18 10:07 Dose: 500 mcg Timolol Maleate (Timoptic 0.5% Ophth Soln) 0 drop OU HS PRASANNA PRN Reason: Protocol Last Admin: 01/26/18 21:44 Dose: 1 drop - Labs Labs: 01/25/18 08:52 01/25/18 08:52 - Constitutional Appears: Non-toxic, No Acute Distress - Head Exam Head Exam: ATRAUMATIC, NORMOCEPHALIC - Eye Exam Eye Exam: EOMI, Normal appearance Pupil Exam: NORMAL ACCOMODATION, PERRL - ENT Exam ENT Exam: Mucous Membranes Moist, Normal Exam - Neck Exam Neck Exam: Full ROM, Normal Inspection. absent: Lymphadenopathy, Tenderness - Respiratory Exam Respiratory Exam: Clear to Ausculation Bilateral, NORMAL BREATHING PATTERN. absent: Accessory Muscle Use, Chest Wall Tenderness, Decreased Breath Sounds, Prolonged Expiratory Phase, Rales, Rhonchi, Wheezes, Respiratory Distress, Stridor - Cardiovascular Exam Cardiovascular Exam: REGULAR RHYTHM, RRR, +S1, +S2. absent: Bradycardia, Tachycardia, Clicks, Diastolic murmur, Gallop, Irregular Rhythm, JVD, Rubs, +S4 , Murmur - GI/Abdominal Exam GI & Abdominal Exam: Soft, Normal Bowel Sounds. absent: Distended, Firm, Guarding, Rigid, Tenderness, Rebound - Extremities Exam Extremities Exam: Full ROM, Normal Capillary Refill, Normal Inspection. absent : Calf Tenderness, Joint Swelling, Pedal Edema, Tenderness - Back Exam Back Exam: NORMAL INSPECTION - Neurological Exam Neurological Exam: Alert, Awake, CN II-XII Intact, Oriented x3 - Psychiatric Exam Psychiatric exam: Normal Affect, Normal Mood - Skin Skin Exam: Dry, Intact, Normal Color, Warm Assessment and Plan - Assessment and Plan (Free Text) Assessment: 82 year old female with a past medical history significant for asthma, glaucoma and HTN admitted for evaluation and treatment for multifocal HAP. Patient was found to have transaminitis and subsequently cholelithiasis with cholecystitis on RUQ U/S. HIDA was negative and no surgical intervention is indicated at this time. Patient transferred to TCU for further rehabilitation. Plan: 1. Multifocal HAP -CT chest showed patchy scattered areas of groundglass opacity, consolidation, nodular infiltrates bilaterally, with consolidation most prominently in the right mid lung, and without pleural effusion -Chest X-Ray showed right lower lobe pneumonia -Blood and sputum cultures negative -Influenza and Legionella negative -Afebrile and without tachycardia or tachypnea -Completed seven day course of Doxycycline 100mg PO Q12 -Tapered IV Solu-Medrol to 20mg Q8 -Continue scheduled and as needed Duonebs -Continue Shanell Gannon (home) and Rikki -Pulmonology consulted, all recommendations appreciated -PT/OT as scheduled 2. Cholelithiasis -HIDA was normal with patent cystic duct -Gallbladder U/S showed cholelithiasis with presumptive findings of cholecystitis -No acute surgical intervention indicated at this time -Patient to have cholecystectomy as an outpatient 3. History of HTN -Continue home Zestril 4. History of Glaucoma -Continue home Timolol ophthalmic solution GI Prophylaxis: Protonix DVT Prophylaxis: Lovenox Disposition: Patient transferred to TCU for further physical rehabilitation and continued treatment of the aforementioned assessments. Patient to follow up with Dr. Infante upon discharge. Patient seen and case discussed with attending, Dr. Zepeda. <Parris Zepeda - Last Filed: 01/27/18 14:44> Objective - Vital Signs/Intake and Output Vital Signs (last 24 hours): Temp Pulse Resp BP Pulse Ox 98.1 F 95 H 18 112/64 100 01/27/18 10:41 01/27/18 10:41 01/27/18 10:41 01/27/18 10:41 01/27/18 10:41 - Medications Medications: Current Medications Albuterol/Ipratropium (Duoneb 3 Mg/0.5 Mg (3 Ml) Ud) 3 ml IH Q2H PRN; Protocol PRN Reason: Shortness of Breath Albuterol/Ipratropium (Duoneb 3 Mg/0.5 Mg (3 Ml) Ud) 3 ml IH [id number] PRASANNA PRN Reason: Protocol Last Admin: 01/27/18 13:28 Dose: 3 ml Benzonatate (Tessalon Perles) 100 mg PO TID PRASANNA PRN Reason: Protocol Last Admin: 01/27/18 14:01 Dose: 100 mg Enoxaparin Sodium (Lovenox) 30 mg SC 0600 PRASANNA PRN Reason: Protocol Last Admin: 01/27/18 05:06 Dose: 30 mg Lisinopril (Zestril) 5 mg PO DAILY PRASANNA PRN Reason: Protocol Last Admin: 01/27/18 10:14 Dose: 5 mg Methylprednisolone (Solu-Medrol) 20 mg IVP Q12 PRASANNA PRN Reason: Protocol Last Admin: 01/27/18 10:08 Dose: 20 mg Montelukast Sodium (Singulair) 10 mg PO HS PRASANNA PRN Reason: Protocol Last Admin: 01/26/18 21:46 Dose: 10 mg Multi-Ingredient Cream (Hydrocerin Cream) 0 ea TOP DAILY PRASANNA PRN Reason: Protocol Last Admin: 01/27/18 10:07 Dose: 1 applic Pantoprazole Sodium (Protonix Ec Tab) 40 mg PO 0600 PRASANNA PRN Reason: Protocol Last Admin: 01/27/18 05:06 Dose: 40 mg Roflumilast (Daliresp) 500 mcg PO DAILY PRASANNA PRN Reason: Protocol Last Admin: 01/27/18 10:07 Dose: 500 mcg Timolol Maleate (Timoptic 0.5% Ophth Soln) 0 drop OU HS PRASANNA PRN Reason: Protocol Last Admin: 01/26/18 21:44 Dose: 1 drop - Labs Labs: 01/25/18 08:52 01/25/18 08:52 Attending/Attestation - Attestation I have personally seen and examined this patient.: Yes I have fully participated in the care of the patient.: Yes I have reviewed all pertinent clinical information, including history, physical exam and plan: Yes Notes (Text): 01/27/18 14:43 attending note; Patient seen and examined In TCU. Patient is getting physical therapy. Not on oxygen now. Patient is a 82 year old female with history of asthma, glaucoma, hypertension, beryllium exposure, history of multiple episodes of pneumonia was admitted with right lower lobe pneumonia. Stable respiratory status. Pulmonary consult appreciated. On tapering dose of steroids. Needs outpatient PFT and sleep study. Continue physical therapy and occupational therapy. Upon discharge patient will follow up with Dr Infante.
--- NOTE | 2018-01-28 00:08 | PN ---
DATE: 01/27/2018 PULMONARY PROGRESS NOTE REFERRING PHYSICIAN: Parris Zepeda M.D. SUBJECTIVE: The patient is ambulating with the help of therapist. Feels much better. Breathing is better. Cough is improved. No nausea, no vomiting, no diarrhea. No leg pain or leg swelling. OBJECTIVE: GENERAL: In no acute distress. VITAL SIGNS: Temperature is 98, heart rate is 84, respiratory rate is 20, blood pressure 122/64, pulse ox 99% on nasal cannula. HEENT: Moist mucous membranes. No ulcer or thrush noted. NECK: Supple. No JVD. LUNGS: Has a better airflow. HEART: S1 and S2. ABDOMEN: Soft, nontender. No organomegaly. EXTREMITIES: No edema. NEUROLOGICAL: Awake and alert. Follows simple command. MEDICATIONS: She is on Daliresp 500 mcg daily, DuoNeb q.12 hours p.r.n. and also q.6 hours [id number], Lovenox 30 mg subcu daily, Protonix 40 mg daily, Singulair 10 mg at bedtime, Solu-Medrol 20 mg twice a day, Tessalon Perles 100 mg three times a day, Zestril 5 mg daily. LABORATORY DATA: Shows no new lab is available since yesterday. 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 Pulmonary point of view, doing okay. Continue IV and inhaled bronchodilator, gastric prophylaxis, deep vein thrombosis prophylaxis, fall precaution. Continue therapy. Thank you and we will follow with you. Joaquim Iyer MD
[2018-01-28] MEDS: Albuterol-Ipratrop 3 mg / 0.5 (3 ml) UD IH SCH ×4 (04:33→19:38)
[2018-01-28] MEDS: Pantoprazole 40 mg EC Tab PO SCH (05:14)
[2018-01-28] MEDS: Enoxaparin 30 mg Syringe SC SCH (05:15)
[2018-01-28] MEDS: Hydrocerin(120 gm) TOP SCH (10:23)
[2018-01-28] MEDS: MethylPREDNISolone 40 mg Vial IVP SCH (12:16)
[2018-01-29] MEDS: Albuterol-Ipratrop 3 mg / 0.5 (3 ml) UD IH SCH ×4 (01:53→20:06)
[2018-01-29] MEDS: Pantoprazole 40 mg EC Tab PO SCH (05:28)
[2018-01-29] MEDS: Enoxaparin 30 mg Syringe SC SCH (05:28)
[2018-01-29] MEDS ORDERED: MethylPREDNISolone 40 mg Vial IVP SCH (10:00)
--- NOTE | 2018-01-29 10:02 | CP.PCM.PN ---
<Frederic Abebe - Last Filed: 01/29/18 09:59> Subjective - Date & Time of Evaluation Date of Evaluation: 01/29/18 Time of Evaluation: 09:59 - Subjective Subjective: Medicine Progress Note: Patient was seen and assessed at bedside in the TCU. No acute events overnight noted by patient or nursing staff. Patient has no complaints at this time. She denies any complaints including fever, chills, headache, chest pain, SOB, cough , abdominal pain, N/V/D/C, urinary changes, skin changes, or any numbness/ tingling/weakness of any extremity. Objective - Vital Signs/Intake and Output Vital Signs (last 24 hours): Temp Pulse Resp BP Pulse Ox 97.7 F 80 16 118/68 99 01/29/18 06:00 01/29/18 06:00 01/29/18 06:00 01/29/18 06:00 01/29/18 06:00 Intake and Output: 01/29/18 01/29/18 06:59 18:59 Intake Total 420 Balance 420 - Medications Medications: Current Medications Albuterol/Ipratropium (Duoneb 3 Mg/0.5 Mg (3 Ml) Ud) 3 ml IH Q2H PRN; Protocol PRN Reason: Shortness of Breath Albuterol/Ipratropium (Duoneb 3 Mg/0.5 Mg (3 Ml) Ud) 3 ml IH [id number] PRASANNA PRN Reason: Protocol Last Admin: 01/29/18 07:23 Dose: 3 ml Benzonatate (Tessalon Perles) 100 mg PO TID PRASANNA PRN Reason: Protocol Last Admin: 01/28/18 17:20 Dose: 100 mg Enoxaparin Sodium (Lovenox) 30 mg SC 0600 PRASANNA PRN Reason: Protocol Last Admin: 01/29/18 05:28 Dose: 30 mg Lisinopril (Zestril) 5 mg PO DAILY PRASANNA PRN Reason: Protocol Last Admin: 01/28/18 10:24 Dose: 5 mg Montelukast Sodium (Singulair) 10 mg PO HS PRASANNA PRN Reason: Protocol Last Admin: 01/28/18 21:30 Dose: 10 mg Multi-Ingredient Cream (Hydrocerin Cream) 0 ea TOP DAILY PRASANNA PRN Reason: Protocol Last Admin: 04/07/18 10:23 Dose: 1 applic Pantoprazole Sodium (Protonix Ec Tab) 40 mg PO 0600 PRASANNA PRN Reason: Protocol Last Admin: 01/29/18 05:28 Dose: 40 mg Prednisone (Prednisone Tab) 20 mg PO BRK PRASANNA Roflumilast (Daliresp) 500 mcg PO DAILY PRASANNA PRN Reason: Protocol Last Admin: 01/28/18 10:23 Dose: 500 mcg Timolol Maleate (Timoptic 0.5% Ophth Soln) 0 drop OU HS PRASANNA PRN Reason: Protocol Last Admin: 01/28/18 21:30 Dose: 1 drop - Labs Labs: 01/25/18 08:52 01/25/18 08:52 - Constitutional Appears: Non-toxic, No Acute Distress - Head Exam Head Exam: ATRAUMATIC, NORMOCEPHALIC - Eye Exam Eye Exam: EOMI, Normal appearance Pupil Exam: NORMAL ACCOMODATION, PERRL - ENT Exam ENT Exam: Mucous Membranes Moist, Normal Exam - Neck Exam Neck Exam: Full ROM, Normal Inspection. absent: Lymphadenopathy, Tenderness - Respiratory Exam Respiratory Exam: Clear to Ausculation Bilateral, NORMAL BREATHING PATTERN. absent: Accessory Muscle Use, Rales, Rhonchi, Wheezes - Cardiovascular Exam Cardiovascular Exam: REGULAR RHYTHM, RRR, +S1, +S2. absent: Bradycardia, Tachycardia, Clicks, Diastolic murmur, Gallop, Irregular Rhythm, JVD, Rubs, +S4 , Murmur - GI/Abdominal Exam GI & Abdominal Exam: Soft, Normal Bowel Sounds. absent: Distended, Firm, Guarding, Rigid, Tenderness, Rebound - Extremities Exam Extremities Exam: Full ROM, Normal Capillary Refill, Normal Inspection. absent : Calf Tenderness, Joint Swelling, Pedal Edema, Tenderness - Back Exam Back Exam: NORMAL INSPECTION - Neurological Exam Neurological Exam: Alert, Awake, CN II-XII Intact, Normal Gait, Oriented x3 - Psychiatric Exam Psychiatric exam: Normal Affect, Normal Mood - Skin Skin Exam: Dry, Intact, Normal Color, Warm Assessment and Plan - Assessment and Plan (Free Text) Assessment: 82 year old female with a past medical history significant for asthma, glaucoma and HTN admitted for evaluation and treatment for multifocal HAP. Patient was found to have transaminitis and subsequently cholelithiasis with cholecystitis on RUQ U/S. HIDA was negative and no surgical intervention is indicated at this time. Patient transferred to TCU for further rehabilitation. Plan: 1. Multifocal HAP -CT chest showed patchy scattered areas of groundglass opacity, consolidation, nodular infiltrates bilaterally, with consolidation most prominently in the right mid lung, and without pleural effusion -Chest X-Ray showed right lower lobe pneumonia -Blood and sputum cultures negative -Influenza and Legionella negative -Completed seven day course of Doxycycline -Continues to be afebrile and without tachycardia or tachypnea -Started Prednisone 20mg PO daily -Continue scheduled and as needed Duonebs -Continue Shanell Gannon (home) and Daliresp -Pulmonology consulted, all recommendations appreciated -Continue PT/OT as scheduled 2. Cholelithiasis -HIDA was normal with patent cystic duct -Gallbladder U/S showed cholelithiasis with presumptive findings of cholecystitis -No acute surgical intervention indicated at this time -Patient to have cholecystectomy as an outpatient 3. History of HTN -Continue home Zestril 4. History of Glaucoma -Continue home Timolol ophthalmic solution GI Prophylaxis: Protonix DVT Prophylaxis: Lovenox Diet: Heart Healthy Disposition: Patient transferred to TCU for further physical rehabilitation and continued treatment of the aforementioned assessments. Patient to follow up with Dr. Infante upon discharge. Patient seen and case discussed with attending, Dr. Zepeda. <Parris Zepeda - Last Filed: 01/29/18 14:14> Objective - Vital Signs/Intake and Output Vital Signs (last 24 hours): Temp Pulse Resp BP Pulse Ox 97.7 F 80 16 118/65 99 01/29/18 06:00 01/29/18 11:19 01/29/18 06:00 01/29/18 11:19 01/29/18 06:00 Intake and Output: 01/29/18 01/29/18 06:59 18:59 Intake Total 420 Balance 420 - Medications Medications: Current Medications Albuterol/Ipratropium (Duoneb 3 Mg/0.5 Mg (3 Ml) Ud) 3 ml IH Q2H PRN; Protocol PRN Reason: Shortness of Breath Albuterol/Ipratropium (Duoneb 3 Mg/0.5 Mg (3 Ml) Ud) 3 ml IH [id number] PRASANNA PRN Reason: Protocol Last Admin: 01/29/18 13:54 Dose: 3 ml Benzonatate (Tessalon Perles) 100 mg PO TID PRASANNA PRN Reason: Protocol Last Admin: 01/29/18 11:18 Dose: 100 mg Enoxaparin Sodium (Lovenox) 30 mg SC 0600 PRASANNA PRN Reason: Protocol Last Admin: 01/29/18 05:28 Dose: 30 mg Lisinopril (Zestril) 5 mg PO DAILY PRASANNA PRN Reason: Protocol Last Admin: 01/29/18 11:19 Dose: 5 mg Montelukast Sodium (Singulair) 10 mg PO HS PRASANNA PRN Reason: Protocol Last Admin: 01/28/18 21:30 Dose: 10 mg Multi-Ingredient Cream (Hydrocerin Cream) 0 ea TOP DAILY PRASANNA PRN Reason: Protocol Last Admin: 01/29/18 11:17 Dose: 1 applic Pantoprazole Sodium (Protonix Ec Tab) 40 mg PO 0600 PRASANNA PRN Reason: Protocol Last Admin: 01/29/18 05:28 Dose: 40 mg Prednisone (Prednisone Tab) 20 mg PO BRK [facility] Last Admin: 01/29/18 10:49 Dose: 20 mg Roflumilast (Daliresp) 500 mcg PO DAILY PRASANNA PRN Reason: Protocol Last Admin: 01/29/18 11:17 Dose: 500 mcg Timolol Maleate (Timoptic 0.5% Ophth Soln) 0 drop OU HS PRASANNA PRN Reason: Protocol Last Admin: 01/28/18 21:30 Dose: 1 drop - Labs Labs: 01/25/18 08:52 01/25/18 08:52 Attending/Attestation - Attestation I have personally seen and examined this patient.: Yes I have fully participated in the care of the patient.: Yes I have reviewed all pertinent clinical information, including history, physical exam and plan: Yes Notes (Text): 01/29/18 14:13 attending note; Patient seen and examined In TCU. Patient is getting physical therapy. Not on oxygen now. Patient is a 82 year old female with history of asthma, glaucoma, hypertension, beryllium exposure, history of multiple episodes of pneumonia was admitted with right lower lobe pneumonia. Stable respiratory status. Pulmonary consult appreciated. On tapering dose of steroids. we will switch to po prednisone. Needs outpatient PFT and sleep study. Continue physical therapy and occupational therapy. Upon discharge patient will follow up with Dr Infante.
[2018-01-29] MEDS: Hydrocerin(120 gm) TOP SCH (11:17)
--- NOTE | 2018-01-30 00:10 | PN ---
DATE: 01/29/2018 PULMONARY PROGRESS NOTE REFERRING PHYSICIAN: Parris Zepeda MD. SUBJECTIVE: Patient is sitting on the side of the bed, doing well in therapy. Night was unremarkable. Breathing better. Decreased cough, decreased shortness of breath. No nausea, no vomiting, no diarrhea. No leg pain or leg swelling. OBJECTIVE: GENERAL: In no acute distress. VITAL SIGNS: Temperature 98, heart rate 80, respiratory rate is 16, blood pressure 118/65, pulse ox 99% on 2 L nasal cannula. HEENT: Moist mucous membrane. No ulcer or thrush noted. NECK: Supple. No JVD. LUNGS: Have better airflow. HEART: S1 and S2. ABDOMEN: Soft, nontender. No organomegaly. EXTREMITIES: No edema. NEUROLOGICAL: Awake and alert, follows simple commands. MEDICATIONS: She is on Daliresp 500 mcg daily, DuoNeb every 2 hours p.r.n. and every 6 hours round the clock, Lovenox 30 mg subcutaneous daily, prednisone 20 mg daily, Protonix 40 mg daily, Singulair 10 mg daily, Tessalon Perles 100 mg three times a day, and Zestril 5 mg daily. LABORATORY DATA: Reviewed. No new lab is available since yesterday. 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 Pulmonary point of view, she is doing well. Agree with discontinuing Solu-Medrol and starting prednisone. Continue p.o. and inhaled bronchodilators. Taper steroids slowly. Continue therapy. Gastric prophylaxis, deep vein thrombosis prophylaxis. Surgical followup with the gallbladder issue. Thank you and we will follow with you. Joaquim Iyer MD
[2018-01-30] MEDS: Albuterol-Ipratrop 3 mg / 0.5 (3 ml) UD IH SCH ×4 (02:14→20:08)
[2018-01-30] MEDS: Enoxaparin 30 mg Syringe SC SCH (05:17)
[2018-01-30] MEDS: Pantoprazole 40 mg EC Tab PO SCH (05:17)
[2018-01-30] MEDS: Hydrocerin(120 gm) TOP SCH (09:56)
--- NOTE | 2018-01-30 21:46 | PN ---
DATE: 01/30/2018 PULMONARY PROGRESS NOTE REFERRING PHYSICIAN: Parris Zepeda M.D. SUBJECTIVE: She is lying in the bed, head at 45 degrees. Night was unremarkable. Doing well in therapy. Breathing is much better. No nausea. No vomiting. No diarrhea. No leg pain or leg swelling. OBJECTIVE: GENERAL: In no acute distress. VITAL SIGNS: Temperature is 98, heart rate is 98, respiratory rate is 18, blood pressure 115/59, pulse ox 100% on nasal canula. HEENT: Moist mucous membranes. No ulcer or thrush. NECK: Supple. No JVD. LUNGS: Have a fair airflow with few rhonchi. HEART: S1 and S2. ABDOMEN: Soft, nontender. No organomegaly. EXTREMITIES: There is no edema. NEUROLOGICAL: Awake and alert, follows simple commands. MEDICATIONS: She is on Daliresp 500 mcg daily, DuoNeb every 12 hours p.r.n. and every 6 hours round the clock, Lovenox 30 mg subcu daily, prednisone 20 mg daily, Protonix 40 mg daily, Singulair 10 mg at bedtime, Tessalon Perles 100 mg three times a day, Zestril 5 mg daily. LABORATORY DATA: Shows no new lab is available since yesterday. 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 Pulmonary point of view, doing well. We will decrease prednisone to 10 mg daily and taper off for few days. Continue p.o. and inhaled bronchodilator. Gastric prophylaxis. Fall precaution. Continue therapy. Surgical followup. Thank you and we will follow with you. Joaquim Iyer, MDDD: 01/30/2018 20:28:06
[2018-01-31] MEDS: Albuterol-Ipratrop 3 mg / 0.5 (3 ml) UD IH SCH ×4 (01:27→21:10)
--- NOTE | 2018-01-31 04:51 | CP.PCM.PN ---
<Dominic English - Last Filed: 01/31/18 10:29> Subjective - Date & Time of Evaluation Date of Evaluation: 01/31/18 Time of Evaluation: 10:15 - Subjective Subjective: Subjective: Patient seen and examined at bedside. Resting comfortably in bed. No acute overnight events. Patient states she is gaining more strength relative to baseline. Offers no new complaints at this time. Denies fever, chills, chest pain, shortness of breath, abdominal pain, nausea, vomiting, diarrhea, constipation, and urinary symptoms. 12-point review of systems negative except as indicated in the HPI Physical Examination: - Constitutional Appears: Non-toxic, No Acute Distress - Head Exam Head Exam: ATRAUMATIC, NORMOCEPHALIC - Eye Exam Eye Exam: EOMI, Normal appearance - ENT Exam ENT Exam: Mucous Membranes Moist, Normal Exam - Neck Exam Neck Exam: Full ROM, Normal Inspection. absent: Lymphadenopathy, Tenderness - Respiratory Exam Respiratory Exam: Clear to Ausculation Bilateral, NORMAL BREATHING PATTERN. absent: Accessory Muscle Use, Rales, Rhonchi, Wheezes - Cardiovascular Exam Cardiovascular Exam: REGULAR RHYTHM, RRR, +S1, +S2. absent: Bradycardia, Tachycardia, Clicks, Diastolic murmur, Gallop, Irregular Rhythm, JVD, Rubs, +S4 , Murmur - GI/Abdominal Exam GI & Abdominal Exam: Soft, Normal Bowel Sounds. absent: Distended, Firm, Guarding, Rigid, Tenderness, Rebound - Extremities Exam Extremities Exam: Full ROM, Normal Capillary Refill, Normal Inspection. absent : Calf Tenderness, Joint Swelling, Pedal Edema, Tenderness - Back Exam Back Exam: NORMAL INSPECTION - Neurological Exam Neurological Exam: Alert, Awake, CN II-XII Intact, Normal Gait, Oriented x3 - Psychiatric Exam Psychiatric exam: Normal Affect, Normal Mood - Skin Skin Exam: Dry, Intact, Normal Color, Warm Assessment and Plan: Patient is a 82 year old female with a past medical history significant for asthma, glaucoma and HTN who was admitted for evaluation and treatment for multifocal HAP. Patient was found to have transaminitis and subsequently cholelithiasis with cholecystitis on RUQ U/S. HIDA was negative and no surgical intervention is indicated at this time. Patient transferred to TCU for further rehabilitation. Deconditioned State -improved relative to baseline -Continue PT Multifocal HAP -CT chest showed patchy scattered areas of groundglass opacity, consolidation, nodular infiltrates bilaterally, with consolidation most prominently in the right mid lung, and without pleural effusion -Chest X-Ray showed right lower lobe pneumonia -Blood and sputum cultures negative -Influenza and Legionella negative -Completed seven day course of Doxycycline -Continues to be afebrile and without tachycardia or tachypnea - Prednisone 20mg PO daily -Continue scheduled and as needed Duonebs -Continue Tessalon Perles, Singulair (home) and Daliresp -Pulmonology consulted, all recommendations appreciated -Continue PT/OT as scheduled Cholelithiasis -HIDA was normal with patent cystic duct -Gallbladder U/S showed cholelithiasis with presumptive findings of cholecystitis -No acute surgical intervention indicated at this time -Patient to have cholecystectomy as an outpatient History of HTN - BPs reviewed, trended, and appreciated- 90s/50s this AM, no clinical signs of hypotension noted- will monitor closely - Continue home Zestril- hold if SBP is below 100mmHg History of Glaucoma -Continue home Timolol ophthalmic solution Prophylaxis: GI Prophylaxis: Protonix DVT Prophylaxis: Lovenox Patient plan approved by attending physician, Dr. Fragoso. Objective - Vital Signs/Intake and Output Vital Signs (last 24 hours): Temp Pulse Resp BP Pulse Ox 97.9 F 98 H 18 115/59 L 100 01/30/18 16:00 01/30/18 16:00 01/30/18 16:00 01/30/18 16:00 01/30/18 16:00 Intake and Output: 01/30/18 01/31/18 18:59 06:59 Intake Total 420 Balance 420 - Medications Medications: Current Medications Albuterol/Ipratropium (Duoneb 3 Mg/0.5 Mg (3 Ml) Ud) 3 ml IH Q2H PRN; Protocol PRN Reason: Shortness of Breath Albuterol/Ipratropium (Duoneb 3 Mg/0.5 Mg (3 Ml) Ud) 3 ml IH [id number] PRASANNA PRN Reason: Protocol Last Admin: 01/31/18 01:27 Dose: Not Given Benzonatate (Tessalon Perles) 100 mg PO TID [facility] PRN Reason: Protocol Last Admin: 01/30/18 17:50 Dose: 100 mg Enoxaparin Sodium (Lovenox) 30 mg SC 0600 PRASANNA PRN Reason: Protocol Last Admin: 01/30/18 05:17 Dose: 30 mg Lisinopril (Zestril) 5 mg PO DAILY PRASANNA PRN Reason: Protocol Last Admin: 01/30/18 09:56 Dose: 5 mg Montelukast Sodium (Singulair) 10 mg PO HS PRASANNA PRN Reason: Protocol Last Admin: 01/30/18 21:22 Dose: 10 mg Multi-Ingredient Cream (Hydrocerin Cream) 0 ea TOP DAILY PRASANNA PRN Reason: Protocol Last Admin: 01/30/18 09:56 Dose: Not Given Pantoprazole Sodium (Protonix Ec Tab) 40 mg PO 0600 PRASANNA PRN Reason: Protocol Last Admin: 01/30/18 05:17 Dose: 40 mg Prednisone (Prednisone Tab) 10 mg PO BRK PRASANNA Roflumilast (Daliresp) 500 mcg PO DAILY PRASANNA PRN Reason: Protocol Last Admin: 01/30/18 09:56 Dose: 500 mcg Timolol Maleate (Timoptic 0.5% Ophth Soln) 0 drop OU HS PRASANNA PRN Reason: Protocol Last Admin: 01/30/18 21:22 Dose: 1 drop - Labs Labs: 01/25/18 08:52 01/25/18 08:52 <Neymar Fragoso B - Last Filed: 01/31/18 12:33> Objective - Vital Signs/Intake and Output Vital Signs (last 24 hours): Temp Pulse Resp BP Pulse Ox 98 F 90 17 117/64 99 01/31/18 10:57 01/31/18 10:57 01/31/18 10:57 01/31/18 10:57 01/31/18 10:57 - Medications Medications: Current Medications Albuterol/Ipratropium (Duoneb 3 Mg/0.5 Mg (3 Ml) Ud) 3 ml IH Q2H PRN; Protocol PRN Reason: Shortness of Breath Albuterol/Ipratropium (Duoneb 3 Mg/0.5 Mg (3 Ml) Ud) 3 ml IH [id number] PRASANNA PRN Reason: Protocol Last Admin: 01/31/18 07:25 Dose: 3 ml Benzonatate (Tessalon Perles) 100 mg PO TID PRASANNA PRN Reason: Protocol Last Admin: 01/31/18 11:01 Dose: 100 mg Enoxaparin Sodium (Lovenox) 30 mg SC 0600 PRASANNA PRN Reason: Protocol Last Admin: 01/31/18 05:58 Dose: 30 mg Lisinopril (Zestril) 5 mg PO DAILY PRASANNA PRN Reason: Protocol Montelukast Sodium (Singulair) 10 mg PO HS PRASANNA PRN Reason: Protocol Last Admin: 01/30/18 21:22 Dose: 10 mg Multi-Ingredient Cream (Hydrocerin Cream) 0 ea TOP DAILY PRASANNA PRN Reason: Protocol Last Admin: 01/31/18 11:00 Dose: 1 applic Pantoprazole Sodium (Protonix Ec Tab) 40 mg PO 0600 PRASANNA PRN Reason: Protocol Last Admin: 01/31/18 05:57 Dose: 40 mg Prednisone (Prednisone Tab) 10 mg PO BRK [facility] Last Admin: 01/31/18 08:33 Dose: 10 mg Roflumilast (Daliresp) 500 mcg PO DAILY PRASANNA PRN Reason: Protocol Last Admin: 01/31/18 11:00 Dose: 500 mcg Timolol Maleate (Timoptic 0.5% Ophth Soln) 0 drop OU HS PRASANNA PRN Reason: Protocol Last Admin: 01/30/18 21:22 Dose: 1 drop - Labs Labs: 01/31/18 07:45 01/31/18 07:45 Attending/Attestation - Attestation I have personally seen and examined this patient.: Yes I have fully participated in the care of the patient.: Yes I have reviewed all pertinent clinical information, including history, physical exam and plan: Yes Notes (Text): I have seen and examined the patient at bedside. Agree with the above note with the following additions/ exceptions: Briefly this is 82 year old female with history of asthma, glaucoma, HTN, beryllium exposure, history of multiple episodes of pneumonia in the past with the last one being 2 years ago who was brought by the daughter for evaluation of persistent cough, fever and found to have RLL pneumonia. Patient was initially was getting treatment for HCAP and she completed antibiotics. She is on tapering doses of steroids. Pulm consult appreciated. Patient needs outpatient PFT's and HRCT once her symptoms gets resolved. Upon admission, patient complained of mild abdominal pain and had mild RUQ tenderness. Transaminitis was also noted which has resolved now. US GB revealed acute cholecystitis however HIDA was negative. Patient needs to follow up with surgeon as an outpatient. Patient denies any abdominal pain, nausea, vomiting or bloating. This morning her BP was noted to be low. Patient was asymptomatic and denies headache, dizziness, visual disturbance or any other complaints. Repeat BP was 117/60. She has been participating in Physical therapy. Denies any complaints. Upon discharge patient will follow up with Dr Infante, Dr Bhandari and Dr Iyer. DC plan for tomorrow. Dr Neymar Fragoso
[2018-01-31] MEDS: Pantoprazole 40 mg EC Tab PO SCH (05:57)
[2018-01-31] MEDS: Enoxaparin 30 mg Syringe SC SCH (05:58)
--- NOTE | 2018-01-31 06:40 | PN ---
DATE: 01/28/2018 PULMONARY PROGRESS NOTE REFERRING PHYSICIAN: Parris Zepeda MD. SUBJECTIVE: She is sitting on side of the bed, feels much better, doing well in therapy. Decreased cough. No nausea. No vomiting, diarrhea, leg pain, leg swelling. PHYSICAL EXAMINATION: GENERAL: In no acute distress. VITAL SIGNS: Temperature is 98, heart rate is 95, respiratory rate is 20, blood pressure 121/66, pulse ox 100% on 2 L nasal canula. HEENT: Moist mucous membranes. No ulcer or thrush noted. NECK: Supple. No JVD. LUNGS: Have a fair airflow with few rhonchi. HEART: S1 and S2. ABDOMEN: Soft, nontender. No organomegaly. EXTREMITIES: No edema. NEUROLOGICAL: Awake and alert, follows simple commands. LABORATORY DATA: No new lab is available. MEDICATIONS: She is on Daliresp 500 mcg daily, DuoNeb every 12 hours p.r.n. and every 6 hours around the clock, multivitamins daily, Lovenox 30 mg subcutaneous daily, Protonix 40 mg daily, Singulair 10 mg daily, Solu-Medrol 20 mg every 12 hours, Tessalon Perles 100 mg three times a day, and Zestril 5 mg daily. 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 Pulmonary point of view, she is doing well. We will decrease Solu-Medrol to 20 mg daily. Continue p.o and inhaled bronchodilator. Gastric prophylaxis and deep vein thrombosis prophylaxis. Thank you and we will follow with you. Joaquim Iyer MD
[2018-01-31 08:00] LABS: BASO # 0.02 K/mm3 (0.0-2.0); BASO % 0.2 % (0.0-3.0); EOS # 0.1 (0.0-0.7); EOS % 0.5 % (1.5-5.0); GRAN # 5.69 (1.4-6.5); GRAN % 58.3 % (50.0-68.0); HEMOGLOBIN 11.8 g/dL (12.0-16.0); LYMPH # 3.4 (1.2-3.4); LYMPH % 34.5 % (22.0-35.0); MEAN CELL VOLUME 92.3 fl (80.0-105.0); MEAN CORPUSCULAR HEMOGLOBIN 30.1 pg (25.0-35.0); MEAN CORPUSCULAR HGB CONC 32.6 g/dl (31.0-37.0); MEAN PLATELET VOLUME 8.7 fl (7.0-11.0); MONO # 0.6 (0.1-0.6); MONO % 6.5 % (1.0-6.0); RBC 3.92 10^6/uL (3.5-6.1); RED CELL DISTRIBUTION WIDTH 14.8 % (11.5-14.5); WHITE BLOOD COUNT 9.8 10^3/ul (4.5-11.0)
[2018-01-31 08:27] LABS: ALB/GLOB RATIO 1.1 (1.1-1.8); ALBUMIN 3.2 g/dL (3.0-4.8); ALT/SGPT 50 U/L (7-56); AST/SGOT 33 U/L (14-36); BLOOD UREA NITROGEN 17 mg/dL (7-21); CALCIUM 9.1 mg/dL (8.4-10.5); GFR AFRICAN-AMERICAN > 60; GFR NON-AFRICAN AMERICAN > 60
[2018-01-31] MEDS: Hydrocerin(120 gm) TOP SCH (11:00)
--- NOTE | 2018-01-31 11:50 | PN ---
DATE: 01/31/2018 PULMONARY PROGRESS NOTE REFERRING PHYSICIAN: Parris Zepeda MD. SUBJECTIVE: She is sitting on side of the bed. Night was unremarkable. Doing well in therapy. Cough and shortness of breath are better. No nausea. No vomiting, diarrhea, leg pain, leg swelling. OBJECTIVE: GENERAL: In no acute distress. VITAL SIGNS: Temp is 98, heart rate is 90, respiratory rate 18, blood pressure 117/64, pulse ox 99% on room air. HEENT: Moist mucous membrane. No ulcer or thrush noted. NECK: Supple. No JVD. LUNGS: Have a fair airflow. HEART: S1 and S2. ABDOMEN: Soft, nontender. No organomegaly. EXTREMITIES: No edema. NEUROLOGICAL: Awake and alert. Follows simple command. LABORATORY DATA: Shows hemoglobin 11.8, hematocrit 36.2, WBC 9.8, platelet is 346. Sodium 138, potassium 4.4, chloride 103, bicarbonate 31, BUN 17, creatinine 0.7, glucose 77, calcium is 9.1, total bili 1.1, AST 33, ALT 50, alk phos is 62, albumin is 3.2. MEDICATIONS: She is on Daliresp 500 mcg daily, DuoNeb every 2 hours p.r.n. and every 6 hours round the clock, Lovenox 30 mg subcu daily, prednisone 10 mg daily, Protonix 40 mg daily, Singulair 10 mg daily, Tessalon Perles 100 mg every 8 hours, Zestril 5 mg daily. IMPRESSION AND PLAN: Chronic obstructive lung disease secondary to beryllium exposure, has a pneumonitis, pulmonary fibrosis, pulmonary hypertension, status post pneumonia, cholelithiasis. Pulmonary point of view, she is doing well. Continue p.o. and inhaled bronchodilator. Taper off steroids in the next few days. Gastric prophylaxis. Fall precaution. Outpatient pulmonary function test upon discharge. Thank you and we will follow with you. Joaquim Iyer MD
[2018-01-31 17:02] VITALS: RESP 18
[2018-02-01] MEDS: Albuterol-Ipratrop 3 mg / 0.5 (3 ml) UD IH SCH ×2 (02:00→07:38)
[2018-02-01] MEDS: Pantoprazole 40 mg EC Tab PO SCH (05:19)
[2018-02-01] MEDS: Enoxaparin 30 mg Syringe SC SCH (05:19)
[2018-02-01 06:37] VITALS: BP 117/66; PULSE 84; TEMP 98; O2SAT 95
--- NOTE | 2018-02-01 08:52 | CP.PCM.DIS ---
<Dominic English - Last Filed: 02/01/18 11:12> Provider - Provider Date of Admission: 01/24/18 18:44 Attending physician: Neymar Fragoso MD Primary care physician: Teresa Infante MD Time Spent in preparation of Discharge (in minutes): 45 Diagnosis - Discharge Diagnosis (1) Pneumonia Status: Resolved Priority: Medium (2) Hypertension Status: Chronic Priority: Medium (3) Cholelithiasis Status: Chronic Priority: Medium (4) Glaucoma Status: Chronic Priority: Medium Hospital Course - Lab Results Lab Results: Most Recent Lab Values WBC 9.8 10^3/ul (4.5-11.0) D 01/31/18 07:45 RBC 3.92 10^6/uL (3.5-6.1) 01/31/18 07:45 Hgb 11.8 g/dL (12.0-16.0) L 01/31/18 07:45 Hct 36.2 % (36.0-48.0) 01/31/18 07:45 MCV 92.3 fl (80.0-105.0) 01/31/18 07:45 MCH 30.1 pg (25.0-35.0) 01/31/18 07:45 MCHC 32.6 g/dl (31.0-37.0) 01/31/18 07:45 RDW 14.8 % (11.5-14.5) H 01/31/18 07:45 Plt Count 346 10^3/uL (120.0-450.0) 01/31/18 07:45 MPV 8.7 fl (7.0-11.0) 01/31/18 07:45 Gran % 58.3 % (50.0-68.0) 01/31/18 07:45 Lymph % (Auto) 34.5 % (22.0-35.0) 01/31/18 07:45 Coles % (Auto) 6.5 % (1.0-6.0) H 01/31/18 07:45 Eos % (Auto) 0.5 % (1.5-5.0) L 01/31/18 07:45 Baso % (Auto) 0.2 % (0.0-3.0) 01/31/18 07:45 Gran # 5.69 (1.4-6.5) 01/31/18 07:45 Lymph # (Auto) 3.4 (1.2-3.4) 01/31/18 07:45 Coles # (Auto) 0.6 (0.1-0.6) 01/31/18 07:45 Eos # (Auto) 0.1 (0.0-0.7) 01/31/18 07:45 Baso # (Auto) 0.02 K/mm3 (0.0-2.0) 01/31/18 07:45 Sodium 138 mmol/L (132-148) 01/31/18 07:45 Potassium 4.4 mmol/L (3.6-5.0) 01/31/18 07:45 Chloride 103 mmol/L (98-107) 01/31/18 07:45 Carbon Dioxide 31 mmol/L (21-33) 01/31/18 07:45 Anion Gap 9 (10-20) L 01/31/18 07:45 BUN 17 mg/dL (7-21) 01/31/18 07:45 Creatinine 0.7 mg/dl (0.7-1.2) 01/31/18 07:45 Est GFR ( Amer) > 60 01/31/18 07:45 Est GFR (Non-Af Amer) > 60 01/31/18 07:45 Random Glucose 77 mg/dL (70-110) 01/31/18 07:45 Calcium 9.1 mg/dL (8.4-10.5) 01/31/18 07:45 Total Bilirubin 1.1 mg/dL (0.2-1.3) 01/31/18 07:45 AST 33 U/L (14-36) 01/31/18 07:45 ALT 50 U/L (7-56) 01/31/18 07:45 Alkaline Phosphatase 62 U/L (38-126) 01/31/18 07:45 Total Protein 6.1 g/dL (5.8-8.3) 01/31/18 07:45 Albumin 3.2 g/dL (3.0-4.8) 01/31/18 07:45 Globulin 2.9 gm/dL 01/31/18 07:45 Albumin/Globulin Ratio 1.1 (1.1-1.8) 01/31/18 07:45 - Hospital Course Hospital Course: Patient is a 82 year old female with a past medical history significant for asthma, glaucoma and HTN who was admitted to the hospital for evaluation and treatment for multifocal HAP. Patient was found to have transaminitis and subsequently cholelithiasis with cholecystitis on RUQ U/S. HIDA was negative and no surgical intervention is indicated at this time. Patient was then transferred to TCU for further rehabilitation. During her stay in the TCU patient has improved her overall conditioning and her functional status has improved. At this time the patient is medically stable for discharge to home. Patient understands and appreciates discharge plan. Patient instructed to follow up with primary care physicians within three to five days from discharge. Furthermore, the patient is instructed to take medications as prescribed and to return to emergency room for evaluation of intractable headache, fever, chills, dizziness, chest pain, shortness of breath, abdominal pain, nausea, vomiting, diarrhea, constipation, and urinary symptoms. This is a brief summary of the patients hospital course. Please see patient chart for full details. Discharge Exam - Head Exam Head Exam: ATRAUMATIC, NORMOCEPHALIC - Additional Findings Additional findings: - Constitutional Appears: Non-toxic, No Acute Distress - Head Exam Head Exam: ATRAUMATIC, NORMOCEPHALIC - Eye Exam Eye Exam: EOMI, Normal appearance - ENT Exam ENT Exam: Mucous Membranes Moist, Normal Exam - Neck Exam Neck Exam: Full ROM, Normal Inspection. absent: Lymphadenopathy, Tenderness - Respiratory Exam Respiratory Exam: Clear to Ausculation Bilateral, NORMAL BREATHING PATTERN. absent: Accessory Muscle Use, Rales, Rhonchi, Wheezes - Cardiovascular Exam Cardiovascular Exam: REGULAR RHYTHM, RRR, +S1, +S2. absent: Bradycardia, Tachycardia, Clicks, Diastolic murmur, Gallop, Irregular Rhythm, JVD, Rubs, +S4 , Murmur - GI/Abdominal Exam GI & Abdominal Exam: Soft, Normal Bowel Sounds. absent: Distended, Firm, Guarding, Rigid, Tenderness, Rebound - Extremities Exam Extremities Exam: Full ROM, Normal Capillary Refill, Normal Inspection. absent : Calf Tenderness, Joint Swelling, Pedal Edema, Tenderness - Neurological Exam Neurological Exam: Alert, Awake, CN II-XII Intact, Normal Gait, Oriented x3 - Psychiatric Exam Psychiatric exam: Normal Affect, Normal Mood - Skin Skin Exam: Dry, Intact, Normal Color, Warm Discharge Plan - Discharge Medications Prescriptions: Albuterol HFA [Ventolin HFA 90 mcg/actuation (8 g)] 1 puff IH Q4H PRN #1 inhaler PRN Reason: Shortness Of Breath Fluticasone/Salmeterol 250/50 [Advair Diskus 250/50] 1 puff PO DAILY #1 unit Lisinopril [Zestril] 5 mg PO DAILY 14 Days tab Montelukast [Singulair] 10 mg PO HS #14 tab predniSONE [predniSONE Tab] 5 mg PO DAILY #4 tab Roflumilast [Daliresp] 500 mcg PO DAILY #14 tab - Follow Up Plan Condition: GOOD Disposition: HOME/ ROUTINE Instructions: Preventing Falls in the Older Adult, COPD Including Emphysema (DC ), Heart Failure, Adult (DC), Pneumonia, Adult (DC), Glaucoma (DC) Additional Instructions: Patient Instructions: Take Medications as prescribed Follow up with primary care physician and referrals within 3-5 days from discharge Return to emergency room for evaluation of intractable headache, fever, chills, dizziness, chest pain, shortness of breath, abdominal pain, nausea, vomiting, diarrhea, constipation, and urinary symptoms. Referrals: Teresa Infante MD [Primary Care Provider] - <Neymar Fragoso - Last Filed: 02/01/18 15:44> Provider - Provider Date of Admission: 01/24/18 18:44 Attending physician: Neymar Fragoso MD Primary care physician: Teresa Infante MD Hospital Course - Lab Results Lab Results: Most Recent Lab Values WBC 9.8 10^3/ul (4.5-11.0) D 01/31/18 07:45 RBC 3.92 10^6/uL (3.5-6.1) 01/31/18 07:45 Hgb 11.8 g/dL (12.0-16.0) L 01/31/18 07:45 Hct 36.2 % (36.0-48.0) 01/31/18 07:45 MCV 92.3 fl (80.0-105.0) 01/31/18 07:45 MCH 30.1 pg (25.0-35.0) 01/31/18 07:45 MCHC 32.6 g/dl (31.0-37.0) 01/31/18 07:45 RDW 14.8 % (11.5-14.5) H 01/31/18 07:45 Plt Count 346 10^3/uL (120.0-450.0) 01/31/18 07:45 MPV 8.7 fl (7.0-11.0) 01/31/18 07:45 Gran % 58.3 % (50.0-68.0) 01/31/18 07:45 Lymph % (Auto) 34.5 % (22.0-35.0) 01/31/18 07:45 Coles % (Auto) 6.5 % (1.0-6.0) H 01/31/18 07:45 Eos % (Auto) 0.5 % (1.5-5.0) L 01/31/18 07:45 Baso % (Auto) 0.2 % (0.0-3.0) 01/31/18 07:45 Gran # 5.69 (1.4-6.5) 01/31/18 07:45 Lymph # (Auto) 3.4 (1.2-3.4) 01/31/18 07:45 Coles # (Auto) 0.6 (0.1-0.6) 01/31/18 07:45 Eos # (Auto) 0.1 (0.0-0.7) 01/31/18 07:45 Baso # (Auto) 0.02 K/mm3 (0.0-2.0) 01/31/18 07:45 Sodium 138 mmol/L (132-148) 01/31/18 07:45 Potassium 4.4 mmol/L (3.6-5.0) 01/31/18 07:45 Chloride 103 mmol/L (98-107) 01/31/18 07:45 Carbon Dioxide 31 mmol/L (21-33) 01/31/18 07:45 Anion Gap 9 (10-20) L 01/31/18 07:45 BUN 17 mg/dL (7-21) 01/31/18 07:45 Creatinine 0.7 mg/dl (0.7-1.2) 01/31/18 07:45 Est GFR ( Amer) > 60 01/31/18 07:45 Est GFR (Non-Af Amer) > 60 01/31/18 07:45 Random Glucose 77 mg/dL (70-110) 01/31/18 07:45 Calcium 9.1 mg/dL (8.4-10.5) 01/31/18 07:45 Total Bilirubin 1.1 mg/dL (0.2-1.3) 01/31/18 07:45 AST 33 U/L (14-36) 01/31/18 07:45 ALT 50 U/L (7-56) 01/31/18 07:45 Alkaline Phosphatase 62 U/L (38-126) 01/31/18 07:45 Total Protein 6.1 g/dL (5.8-8.3) 01/31/18 07:45 Albumin 3.2 g/dL (3.0-4.8) 01/31/18 07:45 Globulin 2.9 gm/dL 01/31/18 07:45 Albumin/Globulin Ratio 1.1 (1.1-1.8) 01/31/18 07:45 Attending/Attestation - Attestation I have personally seen and examined this patient.: Yes I have fully participated in the care of the patient.: Yes I have reviewed all pertinent clinical information, including history, physical exam and plan: Yes Notes (Text): I have seen and examined the patient at bedside. Agree with the above note with the following additions/ exceptions: Briefly this is 82 year old female with history of asthma, glaucoma, HTN, beryllium exposure, history of multiple episodes of pneumonia in the past with the last one being 2 years ago who was brought by the daughter for evaluation of persistent cough, fever and found to have RLL pneumonia. Patient was initially was getting treatment for HCAP and she completed antibiotics. She is on tapering doses of steroids. Pulm consult appreciated. Patient needs outpatient PFT's and HRCT once her symptoms gets resolved. Upon admission, patient complained of mild abdominal pain and had mild RUQ tenderness. Transaminitis was also noted which has resolved now. US GB revealed acute cholecystitis however HIDA was negative. Patient needs to follow up with surgeon as an outpatient. Patient denies any abdominal pain, nausea, vomiting or bloating. She has been participating in Physical therapy. Denies any complaints. Upon discharge patient will follow up with Dr Infante, Dr Bhandari and Dr Iyer. Dr Neymar Fragoso
[2018-02-01] MEDS: Hydrocerin(120 gm) TOP SCH (10:05)
--- NOTE | 2018-02-01 18:33 | PN ---
DATE: PULMONARY PROGRESS NOTE REFERRING PHYSICIAN: Parris Zepeda M.D. SUBJECTIVE: Sitting side of the bed. Night was unremarkable. Feels better, going home today. No cough, no sputum production. No nausea. No vomiting. No diarrhea. No leg pain or leg swelling. OBJECTIVE: GENERAL: In no acute distress. VITAL SIGNS: Temperature is 98, heart rate 84, respiratory rate is 18, blood pressure 117/66, pulse ox 95% on room air. HEENT: Moist mucous membrane. NECK: Supple. No JVD. LUNGS: Have a fair airflow. HEART: S1 and S2. ABDOMEN: Soft, nontender, no organomegaly. EXTREMITIES: No edema. NEUROLOGICAL: Awake and alert. Follows simple command. MEDICATIONS: Reviewed. She is on Daliresp 500 mcg daily, DuoNeb every 2 hours p.r.n. and every 6 hours round the clock, Lovenox 30 mg daily, prednisone 10 mg daily, Protonix 40 mg daily, Singulair 10 mg daily, Tessalon Perles 3 times a day, Zestril 5 mg daily. LABORATORY DATA: Reviewed. No new lab is available since yesterday. 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 Pulmonary point of view, she is doing good. Agree with discharge planning. May send home on tapered steroids and inhaled bronchodilator , patient needs a pulmonary function test. Should be followed by Surgery for possible cholecystectomy. Thank you and we will follow with you. Joaquim Iyer MD
== END 2018-02-01 14:17 | disposition home or self-care (01) | DRG 194 ==
LOC: TRCU 18:44
PROVIDERS: ADMIT Internal Medicine; ATTEND Hospitalist
PROC: F07Z9ZZ Gait Training/Functional Ambulation Treatment (ICD-10-PCS; principal; 2018-01-25)
PROC: F08Z4ZZ Home Management Treatment (ICD-10-PCS; 2018-01-25)
PROC: 3E0F7GC Introduction of Other Therapeutic Substance into Respiratory Tract, Via Natural or Artificial Opening (ICD-10-PCS; 2018-01-25)
DX: J18.9 Pneumonia, unspecified organism (principal); J44.0 Chronic obstructive pulmonary disease with (acute) lower respiratory infection; J84.10 Pulmonary fibrosis, unspecified; K80.10 Calculus of gallbladder with chronic cholecystitis without obstruction; I10 Essential (primary) hypertension; I27.20 Pulmonary hypertension, unspecified; Y95 Nosocomial condition; H40.9 Unspecified glaucoma; Z87.01 Personal history of pneumonia (recurrent)